=== PATIENT | female | born 1960 | race Two or more races ===

== ENCOUNTER 2021-06-29 21:31 | Inpatient (IN) | payer OTHER ==
[~2021-06-29] VITALS: Ht 160 cm; Wt 57.0 kg
[2021-06-29] MEDS: IPRATROPIUM 0.5MG/ALBUTEROL 2.5MG INH SOL UD 3ML (DUONEB) NEB PRN ×2 (21:55→21:56)
[2021-06-29 22:02] LABS: ABG BASE EXCESS -4.9 (-2.0-2.0); ABG HCO3 18.7 MEQ/L (22.0-26.0); ABG O2 SATURATION 97.2 % (95.0-99.0); ABG PARTIAL PRESSURE CO2 29.4 mmHg (35.0-45.0); ABG PARTIAL PRESSURE O2 99.8 mmHg (75.0-100.0); ABG STANDARD HCO3 20.4 MEQ/L (22.0-26.0); ABG TOTAL CO2 19.6 MEQ/L (23.0-31.0); ABG pH (ARTERIAL) 7.422 UNITS (7.350-7.450)
[2021-06-29 22:07] LABS: BASO # 0.2 10^3/uL (0.0-0.2); BASO % 0.6 % (0.0-1.0); EOS # 0.3 10^3/uL (0.0-0.5); EOS % 0.9 % (0.0-3.0); HEMATOCRIT 30.8 % (36.0-47.0); HEMOGLOBIN 9.1 g/dl (12.0-15.5); LYMPH # 3.3 10^3/uL (1.5-5.0); LYMPH % 11.8 % (24.0-44.0); MEAN CORPUSCULAR HEMOGLOBIN 23.2 pg (27.0-33.0); MEAN CORPUSCULAR HGB CONC 29.5 g/dl (32.0-36.5); MEAN CORPUSCULAR VOLUME 78.6 fl (80.0-96.0); MONO # 1.4 10^3/uL (0.0-0.8); MONO % 5.2 % (2.0-8.0); NEUTROPHILS # 21.9 10^3/uL (1.5-8.5); NEUTROPHILS % 79.1 % (36.0-66.0); PLATELET COUNT, AUTOMATED 663 10^3/uL (150-450); RED BLOOD COUNT 3.92 10^6/uL (4.00-5.40); WHITE BLOOD COUNT 27.7 10^3/uL (4.0-10.0)
[2021-06-29] MEDS ORDERED: PIPERACILLIN/TAZOBACTAM SOD 3.375 GM in D5W MINI-BAG PLUS 50 ML IV ONE (22:35)
[2021-06-29] MEDS ORDERED: METO75TA PO (22:35)
[2021-06-29] MEDS ORDERED: GABA-282 PO (22:35)
[2021-06-29] MEDS ORDERED: ATOR40TA75 PO (22:35)
[2021-06-29 22:43] LABS: ALBUMIN 1.8 GM/DL (3.2-5.2); ALT/SGPT 29 U/L (12-78); BILIRUBIN,DIRECT < 0.1 MG/DL (0.0-0.2); BILIRUBIN,TOTAL 0.4 MG/DL (0.2-1.0); BLOOD UREA NITROGEN 52 MG/DL (7-18); CALCIUM LEVEL 9.2 MG/DL (8.8-10.2); CARBON DIOXIDE LEVEL 20 MEQ/L (21-32); CHLORIDE LEVEL 96 MEQ/L (98-107); CK-MB VALUE MASS 1.2 NG/ML (<3.6); CPK CREATINE PHOSPHOKINASE 69 U/L (26-192); CREATININE FOR GFR 3.44 MG/DL (0.55-1.30); GLOMERULAR FILTRATION RATE 14.4 (>45); GLUCOSE, FASTING 310 MG/DL (70-100); MB/CK RELATIVE INDEX 1.74 (< OR =4); NT-PRO BNP 48489 PG/ML (<125); POTASSIUM SERUM 5.2 MEQ/L (3.5-5.1); SODIUM LEVEL 131 MEQ/L (136-145); TOTAL PROTEIN 7.6 GM/DL (6.4-8.2); TROPONIN I 0.86 NG/ML (< 0.10)
[2021-06-29] MEDS ORDERED: NS 500 ML IV ONE (22:45)
[2021-06-29 22:46] LABS: INR 1.13; PROTHROMBIN TIME 14.9 SECONDS (12.7-14.5)
[2021-06-29] MEDS ORDERED: ALLO100T PO (22:47)
[2021-06-29] MEDS ORDERED: OMEP-218 PO (22:47)
[2021-06-29] MEDS ORDERED: RETA1000 INJ (22:47)
[2021-06-29] MEDS ORDERED: NIFE1TAB50 PO (22:47)
[2021-06-29] MEDS ORDERED: LOPI600T PO (22:47)
[2021-06-29] MEDS ORDERED: MIRA3350 PO (22:47)
[2021-06-29] MEDS ORDERED: ACID1TAB PO (22:47)
[2021-06-29] MEDS ORDERED: KEPP1TAB PO (22:47)
[2021-06-29] MEDS ORDERED: GLIP5TAB8 PO (22:47)
[2021-06-29] MEDS ORDERED: BASA100I SC (22:47)
[2021-06-29] MEDS ORDERED: NIFE30TA50 PO (22:47)
[2021-06-29] MEDS ORDERED: METO50TA7 PO (22:47)
[2021-06-29] MEDS ORDERED: ASPI81TA26 PO (22:47)
[2021-06-29] MEDS ORDERED: FURO40TA2 PO (22:47)
[2021-06-29] MEDS ORDERED: CALC1CAP31 PO (22:47)
[2021-06-29] MEDS ORDERED: D31000TA2 PO (22:47)
[2021-06-29] MEDS ORDERED: MED REC COMMENT (22:49)
[2021-06-29 23:14] LABS: D-DIMER QUANT > 4000 ng/ml (<500)
[2021-06-30] VITALS (24 sets, daily range): BP systolic 89–136; BP diastolic 50–64
--- NOTE | 2021-06-30 00:43 | REPVR ---
PROCEDURE INFORMATION: Exam: XR Chest Exam date and time: 06/29/2021 9:41 PM Age: 61 years old Clinical indication: Dyspnea/cough TECHNIQUE: Imaging protocol: XR of the chest. Views: 1 view. COMPARISON: No relevant prior studies available. FINDINGS: Lungs: There is pulmonary interstitial edema. Bibasilar airspace opacities are present. Pleural spaces: There is blunting of the left costophrenic sulcus, which may indicate a left pleural effusion. No pneumothorax is identified. Heart/Mediastinum: The cardiac silhouette is enlarged. Vasculature: There are atherosclerotic calcifications of the aorta. Bones/joints: Unremarkable. IMPRESSION: 1. Cardiomegaly and pulmonary edema. 2. Bibasilar airspace opacities, which may represent atelectasis or consolidation (e.g.: aspiration or pneumonia). 3. Blunting of the left costophrenic sulcus, which may indicate a left pleural effusion. Electronically signed by: Jose D Ruiz On 06/30/2021 00:42:33 AM
[2021-06-30 00:44] LABS: CK-MB VALUE MASS 2.3 NG/ML (<3.6); MB/CK RELATIVE INDEX 4.04 (< OR =4); TROPONIN I 1.82 NG/ML (< 0.10)
[2021-06-30] MEDS ORDERED: CLOPIDOGREL 300 MG TAB (PLAVIX) PO ONE (01:10)
[2021-06-30] MEDS ORDERED: HEPARIN DRIP 25,000 UNITS in IV 1 EA IV SCH (01:10)
[2021-06-30] MEDS ORDERED: HEPARIN SOD (PORCINE) 5000UNITS/ML 1ML VIAL/SYRINGE IV ONE (01:10)
[2021-06-30] MEDS ORDERED: ASPIRIN 81 MG CHEW TABLET PO ONE ×2 (01:10→05:50)
[2021-06-30] MEDS ORDERED: MAALOX 30 ML SUSP *UDC PO PRN (05:50)
[2021-06-30] MEDS ORDERED: NITROGLYCERIN 0.4 MG SUBL TABLET SL PRN (05:50)
[2021-06-30] MEDS ORDERED: MOM 30ML SUSPENSION UDC PO PRN (05:50)
--- NOTE | 2021-06-30 06:06 | HPEPDOC ---
[facility] Medical History & Physical Date of Admission Jun 30, 2021 Date of Service: Jun 30, 2021 Attending Physician: YAMILETH BERRY MD History and Physical TIME OF SERVICE: 625AM CHIEF COMPLAINT: not feeling well HISTORY OF PRESENT ILLNESS: is a 61 yr old F w reports not feeling well for a few min before EMS arrived at her house specifically she felt nauseous but denied vomiting; she has also had a runny nose, dry cough and fevers. She also denied having chest pain, abdominal pain, back pain, dyspnea, losing consciousness or missing dialysis. Per when EMS arrived at her house her O2 sats were in the 60s so the put her on a CPAP. Based on the initial work-up she was diagnosed with sepsis 2/2 PNA and NSTEM; she was started on abx for the PNA and triple therapy for NSTEMI. Despite calling 9 hospitals was unable to find a facility to accept the patient. She is on the waiting list at [facility]. discussed the case with who agreed that it is also reasonable to c/w triple therapy and refer her to an stitch marker on an outpatient basis for elective cath. REVIEW OF SYSTEMS: 10-point review of systems negative except as listed in HPI PAST MEDICAL/ SURGICAL HISTORY: ESRD via perma cath MWF, IDDM, Resistant HTN, CVA x2, PVD, Right hallux amputation (done in [facility] osteomyelitis ?), Hysterectomy FAMILY HISTORY: mother had CKD SOCIAL HISTORY: She move to the with her from [facility] 6 months ago, they live with her , she doesnt smoke ALLERGIES: Please see below. HOME MEDICATIONS: Please see below. PHYSICAL EXAMINATION: Vital Signs Date Time Temp Pulse Resp B/P (MAP) Pulse Ox O2 Delivery O2 Flow Rate FiO2 06/29/21 21:53 135/63 (87) 06/29/21 21:56 50 06/29/21 22:01 115 28 100 NIPPV (BIPAP/CPAP) 06/29/21 22:28 97.8 06/29/21 23:43 15.0 GENERAL APPEARANCE: slim build and developed/ NAD HEENT: EOMI / MMM&P CARDIOVASCULAR: RRR/NMRG / perma Cath at right upper chest LUNGS: CTAB on RA ABDOMEN: contour convex / soft & NT w palpation MUSCULOSKELETAL: NCAT / RAMILA x 4 extremities / right foot wrapped in dressings INTEGUMENT: not flushed or diaphoretic NEUROLOGICAL: CN 2-12 grossly intact / speech not dysarthric PSYCHIATRIC: A&O x 3 / able to understand and follow all commands LABORATORY DATA: IMAGING: Chest xray IMPRESSION: 1. Cardiomegaly and pulmonary edema. 2. Bibasilar airspace opacities, which may represent atelectasis or consolidation (e.g.: aspiration or pneumonia). 3. Blunting of the left costophrenic sulcus, which may indicate a left pleural effusion. MICROBIOLOGY: Respiratory panel neg ASSESSMENT: is a 61 yr old w a hx of ESRD, IDDM, Essential HTN, CVA x2, PVD, & recent Right hallux amputation who is admitted for sepsis, CAP and NSTEMI. PLAN: 1 Sepsis Likely 2/2 PNA but need to r/o osteomyelitis She has the following SIRS criterial SIRS criteria: HR >90 / WBC >12 / RR > 20 and lactic acidosis Plan: admit to ICU / telemetry / repeat lactic acid / Zosyn and vancomycin pending MRSA / no IVF bc she has ESRD /f/u pancx / Acetaminophen PRN for fever / target MAP at of least 65 to 70 / f/u Is and Os with target UOP of at least 0.5 ml/kg/H / f/u FSBS w target serum glucose 140-180 while acutely ill 2 Hypoxemia likely 2/2 PNA She has been weaned off CPAP to non-rebreather Plan: continuous pulse ox & supplemental O2/ f/u pancx results / Zosyn and Vancomycin / Acetaminophen PRN for fever 3 NSTEMI Plan: telemetry / c/w triple therapy (heparin drip, ASA and Plavix) / f/u serial EKGs & troponins, BNP, Echo, lipid panel / high intensity statin & gemfibrozil / c/w metoprolol /f/u w 4 Recent Right hallux amputation Plan: f/u foot xray, ESR and CRP & consider Podiatry consult 5 ESRD via perma cath MWF Plan: will ask the day time team to consult Nephro / renal diet / c/w Calcitriol / vitamin D 6 Microcytic Anemia Plan: f/u Iron studies and stool occult / she is on EPO monthly 7 IDDM Plan: diabetic diet /hypoglycemia protocol / sliding scale insulin / reduce long acting insulin from 20 units BID to 15 units BID pending FSBS / f/u A1C / hold oral anti-glycemics / gabapentin for neuropathy ? 8 Resistant HTN ? Plan: Lasix, metoprolol & nifedipine 9 CVA x2 /PVD Plan: ASA & statin 10 Seizure disorder ? Plan: Keppra / f/u Keppra levels 11 Gout ? Plan: allopurinol DVT n/a she is on a heparin drip Dispo: home after at least 2 midnights stay Home Medications Scheduled Allopurinol (Allopurinol) 100 Mg Tablet, 100 MG PO DAILY Aspirin (Aspirin EC) 81 Mg Tablet.dr, 81 MG PO DAILY Calcitriol (Calcitriol) 0.25 Mcg Capsule, 0.25 MCG PO 2XW MON AND FRI Cephalexin (Cephalexin) 500 Mg Capsule, 500 MG PO BID Cholecalciferol (Vitamin D3) (Vitamin D3) 1,000 Unit Tablet, 1,000 UNITS PO DAILY Epoetin Roosevelt-Epbx (Retacrit) 10,000 Unit/1 Ml Vial, 10,000 UNIT INJ ASDIRECTED Furosemide (Furosemide) 40 Mg Tablet, 80 MG PO DAILY Gabapentin (Gabapentin) 300 Mg Capsule, 300 MG PO QHS Glipizide (Glipizide) 5 Mg Tablet, 5 MG PO BID Insulin Glargine,Hum.rec.anlog (Basaglar Kwikpen U-100) 100 Unit/1 Ml Insuln.pen, 20 UNIT SC BID Lactobacillus Acidophilus (Acidophilus) 1 Each Tablet, 1 TAB PO DAILY Levetiracetam (Keppra) 500 Mg Tablet, 500 MG PO BID Metoprolol Tartrate (Metoprolol Tartrate) 75 Mg Tablet, 75 MG PO BID Nifedipine (Nifedipine ER) 90 Mg Tab.er.24, 90 MG PO QAM Omeprazole (Omeprazole) 20 Mg Capsule.dr, 20 MG PO DAILY Polyethylene Glycol 3350 (Miralax) 119 Gm Powder, 17 GM PO DAILY dilute in 8 ounces of water or juice Simvastatin (Simvastatin) 20 Mg Tablet, 20 MG PO QPM Miscellaneous Medications [Med Rec Comment] RECIEVED COPY OF OFFICE VISIT WITH LIST FROM 06/27/21. NOT SURE HOW ACCURATE LIST IS. REVIEWED WITH EXTERNAL MED HISTORY Allergies Coded Allergies: No Known Allergies (Unverified , 06/29/21) A-FIB/CHADSVASC A-FIB History Current/History of A-Fib/PAF?: No Current PO Anticoag Therapy: No YAMILETH BERRY MD Jun 30, 2021 06:06
[2021-06-30] MEDS ORDERED: CEPH500C PO (07:17)
[2021-06-30] MEDS ORDERED: SIMV20TA22 PO (07:17)
[2021-06-30] MEDS ORDERED: GLUCOSE 4GM CHEW TABLET PO PRN (07:30)
[2021-06-30] MEDS ORDERED: GLUCAGON INJ 1MG VIAL SC PRN (07:30)
[2021-06-30] MEDS ORDERED: DEXTROSE 50% 50 ML SYRINGE IV PRN (07:30)
[2021-06-30] MEDS ORDERED: HOME MED LIST COMPLETE! XX SCH (07:35)
[2021-06-30] MEDS ORDERED: VANCOMYCIN HCL 500 MG in D5W MINI-BAG PLUS 100 ML IV SCH (07:35)
[2021-06-30 08:05] LABS: HEMATOCRIT 28.7 % (36.0-47.0); HEMOGLOBIN 8.6 g/dl (12.0-15.5); MEAN CORPUSCULAR HEMOGLOBIN 23.2 pg (27.0-33.0); MEAN CORPUSCULAR VOLUME 77.4 fl (80.0-96.0); RED BLOOD COUNT 3.71 10^6/uL (4.00-5.40); WHITE BLOOD COUNT 24.2 10^3/uL (4.0-10.0)
[2021-06-30 08:16] LABS: HEMOGLOBIN A1c 8.1 %
--- NOTE | 2021-06-30 08:19 | REP ---
INDICATION: suspect osteomyelitis COMPARISON: None. TECHNIQUE: AP, lateral, bilateral oblique views right foot. FINDINGS: Evidence for amputation involving the 1st and 5th metatarsal bones. Erosive changes are noted at the base of the 5th metatarsal bone and head of the 4th metatarsal. Remainder of the osseous structures demonstrate advanced degenerative changes. Soft tissue swelling noted. IMPRESSION: Underlying osteomyelitis cannot be excluded and are suspect. <Electronically signed by Sancho Rodriguez > 06/30/21 [id number]
[2021-06-30 08:50] LABS: ERYTHROCYTE SEDIMENTATION RATE 126 mm/hr (0-30); PLATELET COUNT, AUTOMATED 529 10^3/uL (150-450)
[2021-06-30] MEDS ORDERED: LEVEMIR (INSULIN DETEMIR) 1 UNITS/0.01ML SC SCH (09:00)
[2021-06-30] MEDS ORDERED: NIFEdipine 30 MG XL TAB PO SCH (09:00)
[2021-06-30] MEDS ORDERED: VANCOMYCIN HCL 1,000 MG, VIAL MATE ADAPTER 1 EACH in NS 250 ML IV ONE (09:00)
[2021-06-30] MEDS ORDERED: VANCOMYCIN INTERMITTENT/PULSE DOSING BY CLINICAL PHARMACIST PER DOSING PROTOCOL XX SCH (09:00)
[2021-06-30] MEDS ORDERED: FUROSEMIDE 40 MG TAB PO SCH (09:00)
[2021-06-30] MEDS ORDERED: METOPROLOL TART 25 MG TABLET PO SCH (09:00)
[2021-06-30] MEDS: HumaLOG INSULIN (NovoLOG) PER UNIT SC SCH ×2 (10:02→12:00)
--- NOTE | 2021-06-30 10:26 | REP ---
INDICATION: line placement COMPARISON: 06/29/2021 TECHNIQUE: Portable AP view of the chest FINDINGS: Left IJ line extends into the right brachiocephalic vein. Double-lumen dialysis catheter extends into the right atrium and appears stable. Stable cardiomegaly. Perihilar and lower lobe opacities suggesting scattered airspace disease and consolidations as well as possible layering left effusion. No pneumothorax. IMPRESSION: 1. New left IJ line extends past the SVC into the right brachiocephalic vein. 2. Perihilar and lower lobe opacities/consolidations (left greater than right) and possible left effusion. <Electronically signed by Sancho Rodriguez > 06/30/21 1021
[2021-06-30 11:11] LABS: C REACTIVE PROTEIN QUANTITATIV 18.9 MG/DL (0.00-0.30); PERCENT SATURATION 28.2 % (13.2-45.0); PHOSPHORUS LEVEL 6.8 MG/DL (2.5-4.9); TROPONIN I 3.04 NG/ML (< 0.10)
[2021-06-30] MEDS ORDERED: NOREPINEPHRINE BITARTRATE 8 MG in D5W 500 ML IV SCH ×3 (12:10→12:25)
[2021-06-30] MEDS: ATORVASTATIN 20 MG TAB PO SCH (12:11)
[2021-06-30] MEDS: PIPERACILLIN/TAZOBACTAM SOD 2.25 GM in D5W MINI-BAG PLUS 50 ML IV SCH ×3 (12:11→20:40)
[2021-06-30] MEDS: CLOPIDOGREL 75 MG TAB PO SCH (12:11)
[2021-06-30] MEDS: levETIRAcetam 250MG TABLET (KEPPRA) PO SCH ×2 (12:11→20:41)
[2021-06-30] MEDS: allopurinoL 100 MG TAB PO SCH (12:12)
[2021-06-30] MEDS: ASPIRIN 81 MG CHEW TABLET PO SCH (12:12)
[2021-06-30] MEDS: VITAMIN D 1,000 INTERNATIONAL UNITS TABLET PO SCH (12:12)
--- NOTE | 2021-06-30 12:33 | ROOPDOC ---
[facility] Report Of Operation Report of Operation DATE OF PROCEDURE: 06/30/21 PROCEDURE PERFORMED: Left internal jugular central venous catheter insertion. PREPROCEDURE DIAGNOSES: NSTEMI, cardiogenic shock. POSTPROCEDURE DIAGNOSES: NSTEMI, cardiogenic shock. PROCEDURE PERFORMED: Left internal jugular central venous catheter insertion. SURGEON: Dr. Link MD ANESTHESIA: Local lidocaine 1% without epinephrine. ESTIMATED BLOOD LOSS: Approximately 1 mL. COMPLICATIONS: None. DESCRIPTION OF PROCEDURE: After procedure consent was obtained from patient with risk and benefit ex plained,a time out was performed. My hands were washed immediately prior to the procedure. I wore a surgical cap, mask with protective eyewear, full gown and sterile gloves throughout the procedure. The patient was placed in Trendelenburg position. Left chest and neck region was prepped using chlorhexidine scrub and draped in sterile fashion using a full drape and sterile probe cover and sterile gel employed. The medial and lateral heads of the sternocleidomastoid muscle were identified as was the carotid pulse. The Internal Jugular vein was identified using the ultrasound. Anesthesia was achieved over the vein using 1% lidocaine. Using real-time out of plane guidance, the introducer needle was inserted into the Internal Jugular vein under direct ultrasound visualization. Venous blood was withdrawn. The syringe was removed and a guidewire was advanced into the introducer needle. The guidewire was visualized in the Internal Jugular Vein by ultrasound. A small incision was made at the skin surface with a scalpel and the introducer needle was exchanged for a dilator over the guidewire. After appropriate dilation was obtained, the dilator was exchanged over the wire for a triple lumen central venous catheter. The wire was removed and the catheter was sutured in place at 18 cm. A sterile sorbaview shield was placed over the catheter at the insertion site. The patient tolerated the procedure without any hemodynamic compromise. At time of procedure completion, all ports aspirated and flushed properly. Post-procedure chest x-ray show catheter transverse into the right brachiocephalic region. However, given the presence of permanent tunneled dialysis catheter in the right subclavian going into the SVC, decision was made to leave the central line alone without repositioning. Estimated blood loss is 1 cc. KATHERINE PRATT MD Jun 30, 2021 12:33
[2021-06-30 12:48] LABS: VENOUS BASE EXCESS -7.9 (-2.0-2.0); VENOUS HCO3 17.6 MEQ/L (23.0-27.0); VENOUS O2 SATURATION 83.7 % (60.0-80.0); VENOUS PARTIAL PRESSURE CO2 35.4 mmHg (38.0-50.0); VENOUS PARTIAL PRESSURE O2 56.4 mmHg (30.0-50.0); VENOUS PH 7.314 UNITS (7.330-7.430); VENOUS STANDARD HCO3 17.8 MEQ/L; VENOUS TOTAL CO2 18.7 MEQ/L (24.0-28.0)
--- NOTE | 2021-06-30 13:36 | CR.PDOC ---
General Date of Consultation: Jun 30, 2021 Referring Provider: YMAILETH BERRY MD Attending Physician: Hanna Ramirez MD Consultation REASON FOR CONSULTATION/CHIEF COMPLAINT: Hypoxic respiratory failure, cardiogenic and septic shock. HISTORY OF PRESENT ILLNESS: This is a 61-year-old female with past medical history of end-stage renal disease on hemodialysis Thursday via right subclavian tunneled dialysis catheter, insulin-dependent diabetes, hypertension, history of stroke with left residual weakness, peripheral vascular disease, right hallux amputation, hysterectomy presented to the hospital last night due to not feeling well. Patient is not a good historian. Last night she called EMS due to complaining of not feeling well. She was having difficulty breathing as well as having a runny nose dry cough and fevers. Upon arrival the emergency ambulance, she was found to be profoundly hypoxic with oxygen saturation in the 60s. She was immediately put on CPAP upon arrival to the emergency department. She denies of orthopnea, lower extremity swelling, hemoptysis, weight loss, night sweats. Upon admission to the hospital patient was found to have significantly elevated troponin. Imaging revealed large left lower lobe consolidation in the posterior aspects. Patient was admitted to the hospital for healthcare associate pneumonia as well as NSTEMI. She was started on NSTEMI protocol with dual antiplatelet as well as heparin drip. She is currently in the ICU with Vapotherm. She is pending transfer to a tertiary care center for elective cardiac catheterization. ICU was consulted for further management. PAST MEDICAL/ SURGICAL HISTORY: ESRD via perma cath MWF IDDM Resistant HTN CVA x2 PVD Right hallux amputation (done in [facility] osteomyelitis ?) Hysterectomy FAMILY HISTORY: mother had CKD SOCIAL HISTORY: She move to the [place] with her from [facility] 6 months ago, they live with her , she doesnt smoke ALLERGIES: Please see below. HOME MEDICATIONS: Please see below. REVIEW OF SYSTEMS: CONSTITUTIONAL: Experiences fever, chills, fatigue. Denies malaise, weight change or appetite change. HEENT: Denies sore throat. CARDIOVASCULAR: Denies chest pain, orthopnea, PND, lower extremity swelling. RESPIRATORY: Admits to shortness of breath and dry cough. Denies hemoptysis or wheezing. GENITOURINARY: Denies dysuria. MUSCULOSKELETAL: Denies myalgia or arthralgia. GASTROINTESTINAL: Denies nausea, vomiting, abdominal pain, blood in stool. SKIN: Denies rash. NEUROLOGICAL: Admits to heavy left sided focal weakness which is old. PSYCHIATRIC: Denies depression. ENDOCRINE: Denies weight change. HEMATOLOGIC/LYMPHATIC: Denies bleeding. ALLERGIC/IMMUNOLOGIC: Denies allergy. PHYSICAL EXAMINATION: VITAL SIGNS: Please see below. GENERAL APPEARANCE: Patient is chronically ill-appearing but does not appear to be any distress. HEENT: No JVD or cervical adenopathy. RESPIRATORY: Diminished breath sounds bilaterally with Rales in the left lower lung field posteriorly. CARDIOVASCULAR: Normal S1-S2 with evidence of midsystolic murmur. ABDOMEN: Soft nontender and hypoactive bowel sounds. EXTREMITIES: No evidence of pedal edema. NEUROLOGICAL: Left-sided focal weakness likely from previous stroke. PSYCHIATRIC: Alert and oriented x2. LABORATORY DATA: Please see below. ASSESSMENT/PLAN: This is a 61-year-old female with past medical history of end-stage renal disease on hemodialysis Thursday via right tunneled dialysis cath eter, insulin-dependent diabetes, hypertension, history of stroke with left residual weakness, peripheral vascular disease, right hallux amputation, hysterectomy presented to the hospital last night due to not feeling well. 1. Hypoxic respiratory failure secondary to HAP and cardiogenic pulmonary edema -We will switch patient from on the percent nonrebreather to Vapotherm. 2. Cardiogenic pulmonary edema -Patient will receive hemodialysis per nephrology 3. NSTEMI -Patient has been loaded with aspirin and Plavix, Lipitor, heparin. Cardiology on board. She is pending transfer to tertiary care center for urgent cardiac catheterization. Her FERNANDA score is 3. -Echo with ejection fraction of 45% and left lateral wall motion hypokinesis. 4. Septic versus cardiogenic shock -We will start patient on Levophed. She is also on empiric antibiotic for HAP. Cultures has been sent. 5. ESRD on hemodialysis -She will receive 1 session of hemodialysis today. Nephrology on board. There is no evidence of electrolyte derangement however she does have evidence of fluid overload/pulmonary edema. DVT prophylaxis: Heparin GI prophylaxis: Not indicated Critical care time excluding procedure is 60 minutes. Vital Signs/I&O Vital Signs Date Time Temp Pulse Resp B/P (MAP) Pulse Ox O2 Delivery O2 Flow Rate FiO2 06/30/21 13:00 81 106/55 (72) 91 HVNI-Vapotherm 29.0 100 06/30/21 12:00 98.4 19 I&O- Last 24 Hours up to 6 AM 06/30/21 06:00 Intake Total 50 ml Balance 50 ml Laboratory Data Labs 24H Laboratory Tests 2 06/29/21 21:50: Immature Granulocyte % (Auto) 2.4, Neutrophils (%) (Auto) 79.1H, Lymphocytes (%) (Auto) 11.8L, Monocytes (%) (Auto) 5.2, Eosinophils (%) (Auto) 0.9, Basophils (%) (Auto) 0.6, Neutrophils # (Auto) 21.9H, Lymphocytes # (Auto) 3.3, Monocytes # (Auto) 1.4H, Eosinophils # (Auto) 0.3, Basophils # (Auto) 0.2, Nucleated Red Blood Cells % (auto) 0.0, Anion Gap 15, Glomerular Filtration Rate 14.4L, Lactic Acid Level 5.6*H, Calcium Level 9.2, Total Bilirubin 0.4, Direct Bilirubin < 0.1, Aspartate Amino Transf (AST/SGOT) 58H, Alanine Aminotransferase (ALT/SGPT) 29, Alkaline Phosphatase 125H, Total Creatine Kinase 69, Creatine Kinase MB 1.2, Creatine Kinase MB Relative Index 1.74, Troponin I 0.86H, BL-Uxt-G-Type Natriuretic Peptide 35142E, Total Protein 7.6, Albumin 1.8L, Albumin/Globulin Ratio 0.3L 06/29/21 21:54: Blood Gas Bicarbonate Standard 20.4L, Arterial Blood pH 7.422, Arterial Blood Partial Pressure CO2 29.4L, Arterial Blood Partial Pressure O2 99.8, Arterial Blood Total CO2 19.6L, Arterial Blood HCO3 18.7L, Arterial Blood Base Excess - 4.9L, Arterial Blood Oxygen Saturation 97.2 06/29/21 22:22: Prothrombin Time 14.9H, Prothromb Time International Ratio 1.13, D-Dimer, Quantitative > 4000H 06/30/21 00:00: Total Creatine Kinase 57, Creatine Kinase MB 2.3, Creatine Kinase MB Relative Index 4.04H, Troponin I 1.82#*H 06/30/21 04:50: Lactic Acid Followup at 4 Hours 1.4 06/30/21 07:36: Nucleated Red Blood Cells % (auto) 0.0, Erythrocyte Sedimentation Rate 126H, Activated Partial Thromboplast Time 76.4H, Estimated Mean Plasma Glucose 186H, Hemoglobin A1c 8.1, Phosphorus Level 6.8H, Iron Level 33L, Total Iron Binding Capacity 117L, Transferrin % Saturation 28.2, Ferritin 72519A, Troponin I 3.04#*H, C-Reactive Protein, Quantitative 18.90H 06/30/21 12:37: Activated Partial Thromboplast Time 65.4H, Blood Gas Bicarbonate Standard 17.8, Venous Blood pH 7.314L, Venous Blood Partial Pressure CO2 35.4L, Venous Blood Partial Pressure O2 56.4H, Venous Blood Total Carbon Dioxide 18.7L, Venous Blood HCO3 17.6L, Venous Blood Oxygen Saturation 83.7H, Venous Blood Base Excess -7.9L 06/30/21 12:55: CBC/BMP Laboratory Tests 06/29/21 21:50 06/30/21 07:36 Microbiology Microbiology 06/29/21 Blood Culture, Received Pending 06/29/21 Respiratory Virus Panel (PCR) ([facility]) - Final, Complete 06/29/21 Blood Culture, Received Pending Allergies Coded Allergies: No Known Allergies (Unverified , 06/29/21) Home Medications Scheduled Allopurinol (Allopurinol) 100 Mg Tablet, 100 MG PO DAILY, (Reported) Aspirin (Aspirin EC) 81 Mg Tablet.dr, 81 MG PO DAILY, (Reported) Calcitriol (Calcitriol) 0.25 Mcg Capsule, 0.25 MCG PO 2XW, (Reported) MON AND FRI Cephalexin (Cephalexin) 500 Mg Capsule, 500 MG PO BID, (Reported) Cholecalciferol (Vitamin D3) (Vitamin D3) 1,000 Unit Tablet, 1,000 UNITS PO D AILY, (Reported) Epoetin Roosevelt-Epbx (Retacrit) 10,000 Unit/1 Ml Vial, 10,000 UNIT INJ ASDIRECTED, (Reported) Furosemide (Furosemide) 40 Mg Tablet, 80 MG PO DAILY, (Reported) Gabapentin (Gabapentin) 300 Mg Capsule, 300 MG PO QHS, (Reported) Glipizide (Glipizide) 5 Mg Tablet, 5 MG PO BID, (Reported) Insulin Glargine,Hum.rec.anlog (Basaglar Kwikpen U-100) 100 Unit/1 Ml Insuln.pen, 20 UNIT SC BID, (Reported) Lactobacillus Acidophilus (Acidophilus) 1 Each Tablet, 1 TAB PO DAILY, (Reported) Levetiracetam (Keppra) 500 Mg Tablet, 500 MG PO BID, (Reported) Metoprolol Tartrate (Metoprolol Tartrate) 75 Mg Tablet, 75 MG PO BID, (Reported) Nifedipine (Nifedipine ER) 90 Mg Tab.er.24, 90 MG PO QAM, (Reported) Omeprazole (Omeprazole) 20 Mg Capsule.dr, 20 MG PO DAILY, (Reported) Polyethylene Glycol 3350 (Miralax) 119 Gm Powder, 17 GM PO DAILY, (Reported) dilute in 8 ounces of water or juice Simvastatin (Simvastatin) 20 Mg Tablet, 20 MG PO QPM, (Reported) Miscellaneous Medications [Med Rec Comment] , (Reported) RECIEVED COPY OF OFFICE VISIT WITH LIST FROM 06/27/21. NOT SURE HOW ACCURATE LIST IS. REVIEWED WITH EXTERNAL MED HISTORY KATHERINE PRATT MD Jun 30, 2021 13:31
[2021-06-30 13:40] LABS: TROPONIN I 2.34 NG/ML (< 0.10)
[2021-06-30] MEDS ORDERED: INSULIN REGULAR IN 0.9 % NACL 100 UNIT in IV 1 EA IV SCH ×2 (14:15)
[2021-06-30] MEDS ORDERED: INSULIN IV RATE CHANGE DOCUMENTATION ML/HR XX SCH (14:15)
[2021-06-30] MEDS: INSULIN REGULAR IN 0.9 % NACL 100 UNIT in IV 1 EA IV SCH ×4 (15:19→19:49)
[2021-06-30] MEDS: INSULIN IV RATE CHANGE DOCUMENTATION ML/HR XX SCH ×3 (16:13→21:54)
--- NOTE | 2021-06-30 17:13 | ECHO ---
ECHOCARDIOGRAM DATE OF PROCEDURE: 06/30/2021 Age: Gender: Female Height: 160 cm Weight: 68 kg REFERRING PHYSICIAN: Clara Morgan M.D, INDICATION: Myocardial infarction. MEASUREMENTS: IVS 1.1 cm LV 4.8 cm LVPW 1.1 cm LA 4.1 cm Aorta 3.2 cm IVC 2.1 cm Mitral E wave velocity 108 A wave 56 E prime septal 2.9 E prime lateral 5.1 Left atrial volume index 24 FINDINGS: This study is of fair technical quality with somewhat limited visualization. Patient is in sinus rhythm. Left ventricle is normal size. There is a wall motion abnormality involving mid and distal lateral and inferolateral tyler. Unfortunately, the visualization was rather limited, so the resolution was poor, but it seems relatively convincing. The remaining left ventricular (LV) segment appeared to have normal contractility, but segments of anterior wall and apex were poorly visualized. I estimate overall ejection fraction (EF) around 45-50%. Right ventricle appears normal. Both atria appear grossly normal. Aortic valve is tricuspid. It is mildly sclerotic, but mobility is preserved. There are also mild degenerative abnormalities of mitral valve with mitral annular calcifications and preserved mobility. Tricuspid valve appears normal. Pulmonic valve was not well seen. No pericardial effusion is noted. Left pleural effusion is seen. Inferior vena cava is mildly dilated and has reduced collapse with inspiration, indicative of high central venous pressure. Aortic root is normal. Aortic arch and abdominal aorta were not visualized. Doppler interrogation reveals competent aortic valve. There is at last moderate mitral insufficiency with laterally oriented mitral regurgitation (MR) jet. There is approximately mild to moderate tricuspid insufficiency. Calculated pulmonary artery pressure was in the mid to high 40s, corresponding to moderate pulmonary hypertension. Mitral inflow pattern and tissue Doppler imaging of mitral annulus reveals grade 2 diastolic dysfunction, indicative of high left ventricular end diastolic pressure. CONCLUSIONS: 1. Study is of fair technical quality. Underlying sinus rhythm. 2. Normal left ventricular (LV) size with mid and distal inferolateral and lateral wall motion abnormality and overall estimated left ventricular ejection fraction (LVEF) 45-50% (fair quality views). Grade 2 diastolic dysfunction. 3. At least moderate mitral insufficiency likely ischemic in nature. 4. Mild to moderate tricuspid insufficiency. 5. Elevated central venous pressure and at least moderate pulmonary hypertension. MTDD
--- NOTE | 2021-06-30 17:13 | CR ---
CONSULTATION DATE: 06/30/2021 REFERRING PHYSICIAN: Clara Morgan M.D. CONSULTING PHYSICIAN: Eugenio Johnson M.D. REASON FOR CONSULTATION: Non-ST elevation M.I. HISTORY OF PRESENT ILLNESS: Mrs. Hernandez is previously unknown to me. She is a 62-year-old lady who apparently immigrated to from [facility] several months ago. She carries a history of peripheral vascular disease and a history of strokes but she does not recall ever having any cardiac problems. She has end-stage renal disease and is dialysis dependent. Her last dialysis was on Thursday. She tells me that she came to the Emergency Room because she just has not felt well. It is somewhat difficult for her to characterize the degree of discomfort. She specifically denies any chest pain. On arrival of EMT she was found to be extremely hypoxic with saturation in 60's. She got non-rebreather oxygen and came to the Emergency Room with improved situation and was transiently on BIPAP. Chest x-ray revealed evidence for what appears to be diffuse bilateral infiltrates, mostly hilar and in the lower extremities and there is also left pleural effusion and cardiomegaly. Her cardiac enzymes were mildly elevated and EKG revealed diffuse ST-segment depression with the exception of leads V-1 and V-2, which were mildly elevated. I was asked to see the patient in consultation. In the interim, she underwent and echocardiogram that I interpreted myself. It was a fair quality study with challenging regionalization but revealed mildly reduced left ventricular systolic function with EF around 45-50%. There were wall motion abnormalities involving lateral and inferolateral tyler. There was approximately moderate mitral insufficiency and elevated central venous pressure and approximately moderate pulmonary hypertension. At the bedside the patient does not have any acute complaints. She denies any chest pain and she feels that her breathing has improved. She does report that she had some fever and chills at home, but she states that at her baseline she is quite active and in spite of recent amputation of the hallux of her right lower extremity, she walks frequently and without major difficulty. Based on the report of the Emergency Room physician, she is not a compliant patient and follows only with Nephrology. PAST MEDICAL HISTORY: 1. History of strokes x2. The patient believes that it was about 4 or 5 years ago. 2. Hypertension. 3. Type 2 diabetes. 4. End-stage renal disease. 5. History of peripheral vascular disease with amputation of right hallux. PAST SURGICAL HISTORY: 1. Hysterectomy. 2. Right hallux amputation. FAMILY HISTORY: The patient's family history is positive for coronary artery disease and kidney disease. SOCIAL HISTORY: The patient is , lives with her , does not smoke, does not drink significant amount of alcohol. HOME MEDICATIONS: 1. Allopurinol 100. 2. Aspirin 81. 3. Calcitriol 0.25 twice a week. 4. Vitamin D-3. 5. Cephalexin 500 twice daily. 6. Epogen. 7. Furosemide 80 mg daily. 8. Gabapentin 300 mg at bedtime. 9. Glipizide 5 mg twice daily. 10. Insulin. 11. Keppra 500 twice daily. 12. Metoprolol 75 twice daily. 13. Nifedipine Extended Release 90 mg daily. 14. Omeprazole 90 mg daily. 15. Miralax. 16. Simvastatin 20 mg at night. ALLERGIES: NO KNOWN ALLERGIES. REVIEW OF SYSTEMS: The patient's review of systems was somewhat difficult to obtain as the patient is really a circumferential historian but specifically, she denies any chest pain. She had nausea but no vomiting. She felt short of breath. No syncope, near syncope. The rest is as per HPI or negative. PHYSICAL EXAMINATION: GENERAL APPEARANCE: Mrs. Hernandez is an elderly, normal size female. She does not appear to be in any obvious distress. NECK: There is a dialysis catheter through right IJ and there is a triple lumen catheter through the left IJ. I do not appreciate carotid bruit. JVP is difficult to us administrative law judge but does not appear grossly elevated. LUNGS: Fair air movement. Diminished breath sounds over the bases. More the less, left than right. I do not appreciate any crackles or wheezing. HEART: Regular rhythm, somewhat muffled heart sounds. I do not appreciate murmur, rub or mitral insufficiency. No obvious gallop. ABDOMEN: Soft, nontender. EXTREMITIES: Free of edema. There is a palpable pulse on her left lower extremity. I have a hard time feeling a pulse on the right lower extremity. The right foot is bandaged. NEUROLOGICAL: She appears intact. I do not appreciate any focal weakness. She is alert and oriented. LABORATORY STUDIES: As of 7:36 this morning WBC count 24,000, hemoglobin 8.6, hematocrit 28, platelet count 29,000 and sedimentation rate 126,000. Last BMP was performed last night around 21:50 and it was: Sodium 131, potassium 5.2, BUN 52, creatinine 3.4 and glucose 310. Liver function tests were mildly elevated. Troponin on admission was 0.86 and has been rising since; the next one around midnight was 1.82 and the third one at 7:36 this morning was 3.0. CK has remained normal. IMAGING DATA: Chest x-ray as per HPI. The patient has already four EKGs that are all principally the same and reveal sinus rhythm with minimal ST elevations in leads V-1 and V-[address] segment depression in all remaining leads. There has not been any obvious evolution over the course of her four EKGs. If anything, there has been subtle improvement. ASSESSMENT AND PLAN: Mrs. Hernandez is a 62-year-old female who has multiple risk factors for CAD that include the presence of end-stage renal disease, hypertension, dyslipidemia and type 2 diabetes, who presents with rather vague symptoms, predominately which are probably fatigue and dyspnea, and is found to have non-ST elevation myocardial infarction with troponin still trending up in the absence of arlene anginal symptoms. There is a wall motion abnormality on the echocardiogram involving lateral and inferolateral tyler with overall EF of about 45% and approximately moderate mitral insufficiency which I believe is most likely ischemic in nature. She already received full dose of Plavix and Aspirin and she is fully anticoagulated. Her blood pressure is low, currently in the 90's systolic and consequently, no other medications with cardiac protective effect like beta blockers or levi inhibitors can be entertained. She did receive high dose statin already. The attempts were made from the Emergency Room to transfer the patient to a facility with cardiac catheterization capability unsuccessfully and eventually the decision was made to keep the patient in our facility. I do not believe that she would be taken to the label cutter anyhow because she has underlying infectious process, whether it is pneumonia or it is possibly alternate surce sepsis, is at this point unclear. Broad spectrum antibiotics were already administered. Pressor support will be started as necessary for blood pressure support. Dialysis is about to start. At this point I do not have much else to offer to her management. PROGNOSIS: Her prognosis is certainly guarded at best on account of numerous comorbidities, but I do believe that the overall picture is probably that of infection with secondary myocardial injury. DISPOSITION: Again, if a bed at a tertiary facility becomes available, I do recommend to transfer the patient. Otherwise we will continue the current supportive management. MTDD
--- NOTE | 2021-06-30 17:44 | IPNPDOC ---
Date Seen The patient was seen on 06/30/21. Progress Note SUBJECTIVE: I attempted to transfer to [facility], [facility] and later [facility]. The patient was accepted by Dr. Maciel at [facility]; however, there currently aren't any ICU beds available. He says the patient will have a better chance getting a bed on their stepdown unit; however, FiO2 would have to be at least 40%. The patient remains on 100% FiO2 but is slowly beginning to be weaned down. The patient had hypotension (MAP 65-67) and, after discussion with cardiology (Dr. Johnson) reviewing her echocardiogram, this was decided likely septic shock vs cardiogenic shock. Nephrology (Dr. Pedro) was consulted and dialysis occurred this afternoon, taking 2 L of fluid off. The patient did not need to start levophed and remains not needing it currently. Pulmonary is consulted and placed central line in the left IJ earlier this morning. Patient had a blood sugar over 700 and was started on insulin drip in the afternoon as well. She denies any increased shortness of breath, chest pain, nausea, vomiting, diarrhea, fevers or chills. OBJECTIVE: PHYSICAL EXAMINATION: Vital Signs: Please see below GENERAL APPEARANCE: slim build and developed/ NAD HEENT: EOMI / MMM&P/ left IJ secured CARDIOVASCULAR: RRR/NMRG / perma Cath at right upper chest LUNGS: CTAB on RA ABDOMEN: contour convex / soft & NT w palpation MUSCULOSKELETAL: NCAT / RAMILA x 4 extremities / right foot wrapped in dressings INTEGUMENT: right foot has 2 pressure ulcers, covered in Hydrafera blue, nonsuppurative, appear clean and well kept NEUROLOGICAL: CN 2-12 grossly intact / speech not dysarthric PSYCHIATRIC: A&O x 3 / able to understand and follow all commands LABORATORY DATA: Please see below IMAGING: Chest xray IMPRESSION: 1. Cardiomegaly and pulmonary edema. 2. Bibasilar airspace opacities, which may represent atelectasis or consolidation (e.g.: aspiration or pneumonia). 3. Blunting of the left costophrenic sulcus, which may indicate a left pleural effusion. MICROBIOLOGY: Respiratory panel neg BCx pending x 2 sets ASSESSMENT: is a 61 yr old w a hx of ESRD, IDDM, Essential HTN, CVA x2, PVD, & recent Right hallux amputation who is admitted for sepsis, HCAP and NSTEMI. PLAN: Acute hypoxic respiratory failure likely multifactorial secondary to HCAP, pulmonary edema from NSTEMI, CHF -Currently on Vapotherm flow rate 20, FiO2 100, saturating at 93% -Status post hemodialysis with 2 L of fluid removal -Goal is 40% FiO2 for transfer to [facility] per Dr. Maciel, pulmonary crit [facility] seed cleaning manager. -See individual treatment of problems below Sepsis/septic shock likely 2/2 to Healthcare associated pneumonia, r/o osteomyelitis RLE -Imaging above -LA now wnl -Zosyn, vancomycin IV renally adjusted, tylenol PRN -XR right foot: Underlying osteomyelitis cannot be excluded and are suspect. -Follow-up blood cultures, sputum culture if able to be given, daily CBC and CMP, monitor CVP, levophed PRN to keep an MAP > 65- careful not to fluid overload in the presence of end-stage renal disease/ hemodialysis. -When more stable, consider MRI RLE -Consider ID consult in the AM NSTEMI -Trop peaked 3.04, trending down currently -Denies chest pain -ECG in chart -Echocardiogram preliminary reading discussed with Dr. Johnson. Ejection fraction 4045 percent, lateral wall motion abnormalities, moderate mitral insufficiency. Follow up official reading -Monitor on telemetry, c/w triple therapy (heparin drip, ASA and Plavix), f/u serial troponins, high intensity statin,gemfibrozil. No BB with hypotension -Cardiology consulted and following closely Hyperglycemia likely secondary to sepsis/stress -Blood sugar over 700, not suspecting DKA or HHS -Insulin drip, consistent carbohydrate diet. When to blood sugars less than 200 consider stopping insulin drip and transitioning to insulin sliding scale and insulin glargine. HFpEF with exacerbation likely worsened by acute cardiac consult in combination with end-stage renal disease -X-ray shows pulmonary edema and pleural effusion -Status post 2 L fluid removal -Hemodialysis and fluids managed by nephrology -Holding beta clarence, Lasix -Follow-up official echocardiogram -Cards on board Recent Right hallux amputation -Supervisor Data Processing Dr. Ewing -Appears clean and well cared for -Get imaging for osteomyelitis as discussed above and can involve podiatry after if needed ESRD on HD MWF -S/p 2 L removal today -Nephrology following Microcytic Anemia likely multifactorial with ESRD and iron deficiency anemia -F/u Iron studies -Nephrology helping manage REsistent hypotension -Currently hypotensive -Hold all meds from home CVA x2 /PVD -No new neuro changes -ASA & statin Seizure disorder ? -Keppra Gout hx -allopurinol GI px -PPI DVT Px -Heparin gtt DISPOSITION: We will try again in the morning to attempt to transfer again. Currently the patient has an accepting physician Dr. Maciel at [facility] ([phone]) and is on a list for a bed. The patient remains a full code. VS, I&O, 24H, Fishbone Vital Signs/I&O Vital Signs Date Time Temp Pulse Resp B/P (MAP) Pulse Ox O2 Delivery O2 Flow Rate FiO2 06/30/21 16:00 97.8 87 17 112/60 (77) 94 HVNI-Vapotherm 20.0 06/30/21 13:00 100 I&O- Last 24 Hours up to 6 AM 06/30/21 06:00 Intake Total 50 ml Balance 50 ml Laboratory Data 24H LABS Laboratory Tests 2 06/29/21 21:50: Immature Granulocyte % (Auto) 2.4, Neutrophils (%) (Auto) 79.1H, Lymphocytes (%) (Auto) 11.8L, Monocytes (%) (Auto) 5.2, Eosinophils (%) (Auto) 0.9, Basophils (%) (Auto) 0.6, Neutrophils # (Auto) 21.9H, Lymphocytes # (Auto) 3.3, Monocytes # (Auto) 1.4H, Eosinophils # (Auto) 0.3, Basophils # (Auto) 0.2, Nucleated Red Blood Cells % (auto) 0.0, Anion Gap 15, Glomerular Filtration Rate 14.4L, Lactic Acid Level 5.6*H, Calcium Level 9.2, Total Bilirubin 0.4, Direct Bilirubin < 0.1, Aspartate Amino Transf (AST/SGOT) 58H, Alanine Aminotransferase (ALT/SGPT) 29, Alkaline Phosphatase 125H, Total Creatine Kinase 69, Creatine Kinase MB 1.2, Creatine Kinase MB Relative Index 1.74, Troponin I 0.86H, AH-Ime-L-Type Natriuretic Peptide 96305P, Total Protein 7.6, Albumin 1.8L, Albumin/Globulin Ratio 0.3L 06/29/21 21:54: Blood Gas Bicarbonate Standard 20.4L, Arterial Blood pH 7.422, Arterial Blood Partial Pressure CO2 29.4L, Arterial Blood Partial Pressure O2 99.8, Arterial Blood Total CO2 19.6L, Arterial Blood HCO3 18.7L, Arterial Blood Base Excess - 4.9L, Arterial Blood Oxygen Saturation 97.2 06/29/21 22:22: Prothrombin Time 14.9H, Prothromb Time International Ratio 1.13, D-Dimer, Q uantitative > 4000H 06/30/21 00:00: Total Creatine Kinase 57, Creatine Kinase MB 2.3, Creatine Kinase MB Relative Index 4.04H, Troponin I 1.82#*H 06/30/21 04:50: Lactic Acid Followup at 4 Hours 1.4 06/30/21 07:36: Nucleated Red Blood Cells % (auto) 0.0, Erythrocyte Sedimentation Rate 126H, Activated Partial Thromboplast Time 76.4H, Estimated Mean Plasma Glucose 186H, Hemoglobin A1c 8.1, Phosphorus Level 6.8H, Iron Level 33L, Total Iron Binding Capacity 117L, Transferrin % Saturation 28.2, Ferritin 80929L, Troponin I 3.04#*H, C-Reactive Protein, Quantitative 18.90H 06/30/21 12:37: Activated Partial Thromboplast Time 65.4H, Blood Gas Bicarbonate Standard 17.8, Venous Blood pH 7.314L, Venous Blood Partial Pressure CO2 35.4L, Venous Blood Partial Pressure O2 56.4H, Venous Blood Total Carbon Dioxide 18.7L, Venous Blood HCO3 17.6L, Venous Blood Oxygen Saturation 83.7H, Venous Blood Base Excess -7.9L 06/30/21 12:55: Troponin I 2.34#*H, Bedside Glucose Confirm (Misc) 783*H CBC/BMP Laboratory Tests 06/29/21 21:50 06/30/21 07:36 Microbiology Microbiology 06/29/21 Blood Culture, Received Pending 06/29/21 Respiratory Virus Panel (PCR) ([facility]) - Final, Complete 06/29/21 Blood Culture, Received Pending Hanna Ramirez MD Jun 30, 2021 17:44
--- NOTE | 2021-06-30 19:13 | ECGEPIP ---
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
--- NOTE | 2021-06-30 19:14 | ECGEPIP ---
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
[2021-06-30] MEDS: GABAPENTIN 300 MG CAP PO SCH (20:41)
[2021-06-30] MEDS: ACETAMINOPHEN TAB 650MG DOSE (2X325MG) PO PRN (20:58)
[2021-06-30] MEDS ORDERED: SIMVASTATIN 20 MG TAB PO SCH (21:00)
[2021-06-30] MEDS ORDERED: HumaLOG INSULIN (NovoLOG) PER UNIT SC SCH (21:00)
[2021-07-01] VITALS (25 sets, daily range): BP systolic 116–159; BP diastolic 56–99; O2SAT 97–100
--- NOTE | 2021-07-01 00:55 | CR.PDOC ---
General Date of Consultation: Jun 30, 2021 Referring Provider: YAMILETH BERRY MD Attending Physician: ARTURO ENAMORADO MD Consultation REASON FOR CONSULTATION/CHIEF COMPLAINT: [SOB]. HISTORY OF PRESENT ILLNESS: is a 61 yr old F w reports not feeling well for a few min before EMS arrived at her house specifically she felt nauseous but denied vomiting; she has also had a runny nose, dry cough and fevers. She also denied having chest pain, abdominal pain, back pain, dyspnea, losing consciousness or missing dialysis. Per when EMS arrived at her house her O2 sats were in the 60s so the put her on a CPAP. Based on the initial work-up she was diagnosed with sepsis 2/2 PNA and NSTEM; she was started on abx for the PNA and triple therapy for NSTEMI. Despite calling 9 hospitals was unable to find a facility to accept the patient. She is on the waiting list at [facility]. discussed the case with who agreed that it is also reasonable to c/w triple therapy and refer her to an supervisor curing room on an outpatient basis for elective cath. She was fluid overloaded on Imaging and she was requiring O2 via vapotherm so Nephrolog service was called for further help in management of ESRD and fluid overload. I saw and evaluated the pt at bedside. I arranged her bedside HD to be done in ICU. Last HD done on Thursday removed 1.2L fluid. REVIEW OF SYSTEMS: 10-point review of systems negative except as listed in HPI PAST MEDICAL/ SURGICAL HISTORY: ESRD via perma cath MWF IDDM Resistant HTN CVA x2 PVD Right hallux amputation (done in [facility] osteomyelitis ?) Hysterectomy FAMILY HISTORY: mother had CKD SOCIAL HISTORY: She move to the with her from [facility] 6 months ago, they live with her , she doesnt smoke ALLERGIES: Please see below. HOME MEDICATIONS: Please see below. HOME MEDICATIONS: Please see below. FAMILY HISTORY: No ESRD. PHYSICAL EXAMINATION: VITAL SIGNS: Please see below. GENERAL APPEARANCE: [AAOx3]. HEENT: EOMI,PERRLA. RESPIRATORY: Decreased BS bilat, Crepts at bases. CARDIOVASCULAR: S1,S2,1+ edema in legs. ABDOMEN: Soft,non tender, +BS. EXTREMITIES:Rt foot laterl side amputation with dressing,Lt heel dressing. NEUROLOGICAL: No focal deficit, AAOx3. PSYCHIATRIC: Depressed mood. LABORATORY DATA: Please see below. ASSESSMENT/PLAN: 1.ESRD on HD: MWF schedule but fluid overloaded. HD to be done emergently. 2. Decompensated CHF: 2L fluid removal with HD 3.Hypotension: Levophed PRN 4.HCAP: Empiric abx coverage. 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 Abx would cover foot infection as well Anemia in ESRd: Dede as per protocol. 6.NSTEMI: Management as per cardiology. Remove fluid to decrease the demand ischemia and overload. Vital Signs/I&O Vital Signs Date Time Temp Pulse Resp B/P (MAP) Pulse Ox O2 Delivery O2 Flow Rate FiO2 07/01/21 00:30 85 116/58 (77) 95 07/01/21 00:00 97.1 27 07/01/21 00:00 18.0 80 06/30/21 21:00 HVNI-Vapotherm I&O- Last 24 Hours up to 6 AM 07/01/21 06:00 Intake Total 2339.2 ml Output Total 2000 ml Balance 339.2 ml Laboratory Data Labs 24H Laboratory Tests 2 06/30/21 04:50: Lactic Acid Followup at 4 Hours 1.4 06/30/21 07:36: Nucleated Red Blood Cells % (auto) 0.0, Erythrocyte Sedimentation Rate 126H, Activated Partial Thromboplast Time 76.4H, Estimated Mean Plasma Glucose 186H, Hemoglobin A1c 8.1, Phosphorus Level 6.8H, Iron Level 33L, Total Iron Binding Capacity 117L, Transferrin % Saturation 28.2, Ferritin 41582R, Troponin I 3.04#*H, C-Reactive Protein, Quantitative 18.90H 06/30/21 12:37: Activated Partial Thromboplast Time 65.4H, Blood Gas Bicarbonate Standard 17.8, Venous Blood pH 7.314L, Venous Blood Partial Pressure CO2 35.4L, Venous Blood Partial Pressure O2 56.4H, Venous Blood Total Carbon Dioxide 18.7L, Venous Blood HCO3 17.6L, Venous Blood Oxygen Saturation 83.7H, Venous Blood Base Excess - 7.9L 06/30/21 12:55: Troponin I 2.34#*H, Bedside Glucose Confirm (Misc) 783*H 06/30/21 16:11: Bedside Glucose (Misc Panel) 226H 06/30/21 17:14: Bedside Glucose (Misc Panel) 265H 06/30/21 18:06: Activated Partial Thromboplast Time 65.2H, Troponin I 3.28#*H 06/30/21 19:34: Bedside Glucose (Misc Panel) 270H 06/30/21 20:42: Bedside Glucose (Misc Panel) 246H 06/30/21 21:41: Bedside Glucose (Misc Panel) 199H 06/30/21 23:44: Bedside Glucose (Misc Panel) 107 CBC/BMP Laboratory Tests 06/30/21 07:36 Microbiology Microbiology 06/29/21 Blood Culture - Preliminary, Resulted No growth after 24 hours . All specim... 06/29/21 Respiratory Virus Panel (PCR) ([facility]) - Final, Complete 06/29/21 Blood Culture - Preliminary, Resulted No growth after 24 hours . All specim... Allergies Coded Allergies: No Known Allergies (Unverified , 06/29/21) Home Medications Scheduled Allopurinol (Allopurinol) 100 Mg Tablet, 100 MG PO DAILY, (Reported) Aspirin (Aspirin EC) 81 Mg Tablet.dr, 81 MG PO DAILY, (Reported) Calcitriol (Calcitriol) 0.25 Mcg Capsule, 0.25 MCG PO 2XW, (Reported) MON AND FRI Cephalexin (Cephalexin) 500 Mg Capsule, 500 MG PO BID, (Reported) Cholecalciferol (Vitamin D3) (Vitamin D3) 1,000 Unit Tablet, 1,000 UNITS PO DAILY, (Reported) Epoetin Roosevelt-Epbx (Retacrit) 10,000 Unit/1 Ml Vial, 10,000 UNIT INJ ASDIRECTED, (Reported) Furosemide (Furosemide) 40 Mg Tablet, 80 MG PO DAILY, (Reported) Gabapentin (Gabapentin) 300 Mg Capsule, 300 MG PO QHS, (Reported) Glipizide (Glipizide) 5 Mg Tablet, 5 MG PO BID, (Reported) Insulin Glargine,Hum.rec.anlog (Basaglar Kwikpen U-100) 100 Unit/1 Ml Insuln.pen, 20 UNIT SC BID, (Reported) Lactobacillus Acidophilus (Acidophilus) 1 Each Tablet, 1 TAB PO DAILY, (Reported) Levetiracetam (Keppra) 500 Mg Tablet, 500 MG PO BID, (Reported) Metoprolol Tartrate (Metoprolol Tartrate) 75 Mg Tablet, 75 MG PO BID, (Reported) Nifedipine (Nifedipine ER) 90 Mg Tab.er.24, 90 MG PO QAM, (Reported) Omeprazole (Omeprazole) 20 Mg Capsule.dr, 20 MG PO DAILY, (Reported) Polyethylene Glycol 3350 (Miralax) 119 Gm Powder, 17 GM PO DAILY, (Reported) dilute in 8 ounces of water or juice Simvastatin (Simvastatin) 20 Mg Tablet, 20 MG PO QPM, (Reported) Miscellaneous Medications [Med Rec Comment] , (Reported) RECIEVED COPY OF OFFICE VISIT WITH LIST FROM 06/27/21. NOT SURE HOW ACCURATE LIST IS. REVIEWED WITH EXTERNAL MED HISTORY ARTURO ENAMORADO MD Jul 01, 2021 00:55
[2021-07-01] MEDS ORDERED: DARBEPOETIN 200MCG/0.4ML *DIALYSIS* SYRINGE (J0882 PER 1MCG) IV SCH (01:10)
[2021-07-01] MEDS: PIPERACILLIN/TAZOBACTAM SOD 2.25 GM in D5W MINI-BAG PLUS 50 ML IV SCH ×4 (01:34→20:18)
[2021-07-01 06:12] LABS: HEMATOCRIT 25.2 % (36.0-47.0); HEMOGLOBIN 7.7 g/dl (12.0-15.5); MEAN CORPUSCULAR HEMOGLOBIN 23.3 pg (27.0-33.0); MEAN CORPUSCULAR HGB CONC 30.6 g/dl (32.0-36.5); MEAN CORPUSCULAR VOLUME 76.1 fl (80.0-96.0); PLATELET COUNT, AUTOMATED 501 10^3/uL (150-450); RED BLOOD COUNT 3.31 10^6/uL (4.00-5.40); WHITE BLOOD COUNT 20.9 10^3/uL (4.0-10.0)
[2021-07-01 06:42] LABS: ALBUMIN 1.7 GM/DL (3.2-5.2); BILIRUBIN,TOTAL 0.2 MG/DL (0.2-1.0); CALCIUM LEVEL 8.8 MG/DL (8.8-10.2); CHOLESTEROL RISK RATIO 4.333 (<5); CREATININE FOR GFR 2.4 MG/DL (0.55-1.30); GLOMERULAR FILTRATION RATE 21.8 (>45); POTASSIUM SERUM 3.1 MEQ/L (3.5-5.1); TOTAL PROTEIN 7.4 GM/DL (6.4-8.2); TROPONIN I 2.59 NG/ML (< 0.10)
[2021-07-01] MEDS ORDERED: POTASSIUM CHLORIDE 10MEQ SR TABLET PO ONE (08:00)
[2021-07-01] MEDS: levETIRAcetam 250MG TABLET (KEPPRA) PO SCH ×2 (08:14→20:19)
[2021-07-01] MEDS: ASPIRIN 81 MG CHEW TABLET PO SCH (08:14)
[2021-07-01] MEDS: CLOPIDOGREL 75 MG TAB PO SCH (08:14)
[2021-07-01] MEDS: ATORVASTATIN 20 MG TAB PO SCH (08:14)
[2021-07-01] MEDS: VITAMIN D 1,000 INTERNATIONAL UNITS TABLET PO SCH (08:15)
[2021-07-01] MEDS: allopurinoL 100 MG TAB PO SCH (08:15)
[2021-07-01] MEDS ORDERED: CALCITRIOL 0.25 MCG CAP (S0169) PO SCH (09:00)
[2021-07-01 09:55] LABS: TROPONIN I 2.15 NG/ML (< 0.10)
[2021-07-01] MEDS: HEPARIN DRIP 25,000 UNITS in IV 1 EA IV SCH (10:30)
[2021-07-01 11:02] LABS: VANCOMYCIN RANDOM 15.1 UG/ML
[2021-07-01 11:38] LABS: HEMATOCRIT 25.4 % (36.0-47.0); HEMOGLOBIN 7.7 g/dl (12.0-15.5)
[2021-07-01 11:58] LABS: PROLACTIN 8.6 NG/ML; PTH INTACT 578.3 PG/ML (18.5-88.0)
[2021-07-01 11:59] LABS: FOLATE 12.3 NG/ML (>5.4)
[2021-07-01] MEDS ORDERED: VANCOMYCIN HCL 1,000 MG, VIAL MATE ADAPTER 1 EACH in NS 250 ML IV ONE ×6 (12:00)
--- NOTE | 2021-07-01 15:25 | IPNPDOC ---
Subjective Date Seen The patient was seen on 07/01/21. Subjective Chief Complaint/HPI Been well with absolutely no complaint today. She denies of fever, chills, chest pain, palpitation, lower extremity swelling. Constitutional: Denies: Chills, Fever Eyes: Denies: Pain Skin: Denies: Rash Pulmonary: Denies: Dyspnea, Cough Cardiovascular: Denies: Chest Pain, Palpitations, Orthopnea, Edema Gastrointestinal: Denies: Nausea, Vomiting, Abdominal Pain Neurological: Denies: Weakness Objective Physical Examination General Exam: Positive: Alert, Cooperative, Other (Chronically ill-appearing.) Eye Exam: Negative: Sclera icteric ENT Exam: Positive: Atraumatic Neck Exam: Positive: Supple; Negative: JVD Chest Exam: Positive: Rales (Of the right lower lung field.), Other (Coarse crackle of the left lower lung field posteriorly.) Heart Exam: Positive: Rate Normal, Normal S1, Normal S2, Murmurs Abdomen Exam: Positive: Normal bowel sounds, Soft; Negative: Tenderness Extremity Exam: Negative: Clubbing, Edema Skin Exam: Negative: Rash Neuro Exam: Positive: Normal Speech Assessment /Plan Assessment This is a 61-year-old female with past medical history of end-stage renal disease on hemodialysis Thursday via right tunneled dialysis catheter, insulin-dependent diabetes, hypertension, history of stroke with left residual weakness, peripheral vascular disease, right hallux amputation, hysterectomy presented to the hospital last night due to not feeling well. 1. Hypoxic respiratory failure secondary to HAP and cardiogenic pulmonary edema 2. Cardiogenic pulmonary edema 3. NSTEMI 4. Septic versus cardiogenic shock - resolved 5. ESRD on hemodialysis Plan/VTE VTE Prophylaxis Ordered?: Yes Plan 1. Hypoxic respiratory failure secondary to HAP and cardiogenic pulmonary edema -Housing requirement is dramatically improving after he she received one episode with dialysis. This is likely secondary to fluid overload from her underlying ESRD. 2. Cardiogenic pulmonary edema -Received hemodialysis per nephrology. Cardiogenic pulmonary edema is currently improving. 3. NSTEMI -Patient has been loaded with aspirin and Plavix, Lipitor, heparin. Cardiology on board. Currently, being medically managed. -Echo with ejection fraction of 45% and left lateral wall motion hypokinesis. 4. Septic versus cardiogenic shock -resolved 5. ESRD on hemodialysis -Received dialysis yesterday. Nephrology on board. There is no evidence of electrolyte or acid-base derangement. DVT prophylaxis: Heparin GI prophylaxis: Not indicated ICU will be standby. Please reconsult if needed. Disposition transfer out of ICU VS, I&O, 24H, [facility] Vital Signs/I&O Vital Signs Date Time Temp Pulse Resp B/P (MAP) Pulse Ox O2 Delivery O2 Flow Rate FiO2 07/01/21 12:00 98.3 87 18 137/64 (88) 92 High Flow Cannula 6.0 07/01/21 08:00 65 I&O- Last 24 Hours up to 6 AM 07/01/21 06:00 Intake Total 3023.9 ml Output Total 2000 ml Balance 1023.9 ml Laboratory Data 24H LABS Laboratory Tests 2 06/30/21 16:11: Bedside Glucose (Misc Panel) 226H 06/30/21 17:14: Bedside Glucose (Misc Panel) 265H 06/30/21 18:06: Activated Partial Thromboplast Time 65.2H, Troponin I 3.28#*H 06/30/21 19:34: Bedside Glucose (Misc Panel) 270H 06/30/21 20:42: Bedside Glucose (Misc Panel) 246H 06/30/21 21:41: Bedside Glucose (Misc Panel) 199H 06/30/21 23:44: Bedside Glucose (Misc Panel) 107 07/01/21 00:52: Bedside Glucose (Misc Panel) 62L 07/01/21 01:23: Bedside Glucose (Misc Panel) 50L 07/01/21 01:25: Bedside Glucose (Misc Panel) 49L 07/01/21 01:46: Bedside Glucose (Misc Panel) 144H 07/01/21 02:06: Bedside Glucose (Misc Panel) 125H 07/01/21 04:04: Bedside Glucose (Misc Panel) 89 07/01/21 05:45: Nucleated Red Blood Cells % (auto) 0.0, Activated Partial Thromboplast Time 49.9H, Anion Gap 9, Glomerular Filtration Rate 21.8L, Calcium Level 8.8, Total Bilirubin 0.2, Aspartate Amino Transf (AST/SGOT) 20, Alanine Aminotransferase (ALT/SGPT) 24, Alkaline Phosphatase 107, Troponin I 2.59#*H, Total Protein 7.4, Albumin 1.7L, Albumin/Globulin Ratio 0.3L, Triglycerides Level 268H, Total Cholesterol 130, LDL Cholesterol 46, Non-HDL Cholesterol (LDL + VLDL) 100, Total HDL Cholesterol 30L, Cholesterol/HDL Ratio 4.333 07/01/21 06:12: Bedside Glucose (Misc Panel) 71L 07/01/21 06:53: Bedside Glucose (Misc Panel) 81 07/01/21 09:10: Troponin I 2.15*H, Random Vancomycin Level 15.1 07/01/21 11:41: Bedside Glucose (Misc Panel) 93 07/01/21 12:18: Methicillin-Resist S.aureus DNA PCR NOT DETECTED 07/01/21 12:47: Activated Partial Thromboplast Time 52.6H CBC/BMP Laboratory Tests 07/01/21 05:45 07/01/21 11:00 Microbiology Microbiology 07/01/21 Stool Occult Blood ([facility]) - Final, Complete 06/30/21 Stool Occult Blood ([facility]) - Final, Complete 06/29/21 Blood Culture - Preliminary, Resulted No growth after 24 hours . All specim... 06/29/21 Respiratory Virus Panel (PCR) ([facility]) - Final, Complete 06/29/21 Blood Culture - Preliminary, Resulted No growth after 24 hours . All specim... KATHERINE PRATT MD Jul 01, 2021 15:25
--- NOTE | 2021-07-01 16:55 | IPNPDOC ---
Subjective Date Seen The patient was seen on 07/01/21. Subjective Chief Complaint/HPI SUBJECTIVE: Patient was seen at bedside this morning. She is resting comfortably in bed without any acute respiratory distress. Per nursing she was switched from Vapotherm to high flow 6 L was able to saturate above 90%. Patient able to speak with me in full sentences without use of accessory muscles. She denies any chest pain shortness of breath nausea vomiting diarrhea, abdominal pain. OBJECTIVE: Vital signs: See below GENERAL: The patient is a well-developed, well-nourished in no apparent distress. AAOx3 NEURO: No focal neurological deficits HEENT: Head is normocephalic and atraumatic. Extraocular muscles are intact. Pupils are equal, round, and reactive to light and accommodation. Nares appears normal. Moist mucous membranes. Patient has a IJ on the left and permacath on the right. Lines at this point do not look affected there is no erythema or pus around the sites. PULM: Clear to auscultation bilaterally. No wheezing, rhonchi or rales appreciated. CARDIO: Normal S1, S2. no significant murmurs, gallops, rubs or clicks. No signs of peripheral edema ABDOMEN: Soft, nontender, and nondistended. Normal bowel sounds. No significant organomegaly appreciated. EXTREMITIES: No cyanosis, clubbing, rash, lesions. IMAGING: No new imaging LABORATORY DATA: See below ASSESSMENT AND PLAN: This is a 61 yr old w a hx of ESRD, IDDM, Essential HTN, CVA x2, PVD, & recent Right hallux amputation who is admitted for sepsis, HCAP and NSTEMI. Acute hypoxic respiratory failure likely multifactorial secondary to HCAP, pulmonary edema from NSTEMI, CHF -Patient was on Vapotherm on 20 L and 65% FiO2 this morning able to satting at 99%. She was able to transition to high flow at 6 L and was able to sat above 90% without any acute respiratory distress. -Per [facility] (Dr. Stroud/deckhand tuna boat) the goal is to have patient O2 down to 40% FiO2. Currently her O2 requirements currently meet the goal for a transfer however tried calling [facility] again today however at this point there is no bed available. -Status post hemodialysis with 2 L of fluid removal Sepsis/septic shock likely 2/2 to Healthcare associated pneumonia, r/o osteomyelitis RLE -LA now wnl -Zosyn, vancomycin IV renally adjusted, tylenol PRN -XR right foot: Underlying osteomyelitis cannot be excluded and are suspect. -Follow-up blood cultures, sputum culture if able to be given, daily CBC and CMP, monitor CVP, levophed PRN to keep an MAP > 65- careful not to fluid overload in the presence of end-stage renal disease/ hemodialysis. -When more stable, consider MRI RLE -Consider ID consult in the AM NSTEMI -Trop peaked 3.04, trending down currently -Denies chest pain. 4 EKGs with findings significant for sinus rhythm with minimal ST elevation in leads V1 and V2 and diffuse ST segment depressions in all remaining leads. No obvious evolution over the course of the 4 EKGs. Patient has had several troponins with values of 2.59 and 2.15. -Echocardiogram shows ejection fraction 4045 percent, lateral wall motion abnormalities, with moderate mitral insufficiency and left lateral wall motion hypokinesis -Continuing on telemetry for monitoring, c/w triple therapy (heparin drip, ASA and Plavix) -We will get another EKG and troponin for tomorrow morning. We will continue with high intensity statin, gemfibrozil. - We will continue with every 6 hour troponin monitoring. -Cardiology on consultationappreciate their recommendations and further input Hyperglycemia likely secondary to sepsis/stress -Patient had an episode of hyperglycemia with blood sugar over seven hundreds and was started on insulin drip however this morning her blood sugar did dip to the sixties and insulin drip was held this morning and DC'd. -Will order for sliding scale with FSBS every 6 hours plus hypoglycemic protocol. -Continue with her consistent carb diet Cardiogenic pulmonary edema -Patient initially had pulmonary edema and pleural effusion on chest radiograph and is now status post 2 L fluid removal per nephrology via hemodialysis. -Nephrology continues to follow on consultappreciate their recommendations and further input. -We will continue to hold her beta-blockers as well as Lasix due to hypotension. Will consider adding back her meds if she becomes profoundly hypertensive. Meanwhile we will continue to monitor her blood pressure closely and adjust her meds as necessary. -Patient's echo shows ejection fraction of 45% and left lateral wall motion hypokinesis. Cardiology is still in consultation and following appreciate their recommendations and further input. -Patient's oxygen requirements are improving and was able to de-escalate from Vapotherm to high flow and saturate with SPO2 above 90% all day. We will co ntinue to monitor closely. -Associate Professor Of Philosophy on consultation and following appreciate their further recom mendations and input Hx of hypertension - Patient had hypotension and will avoid any beta-blockers at this point. Continue to monitor her blood pressure closely and add on antihypertensives as necessary. Recent Right hallux amputation -Rn Acute Dr. Ewing -Appears clean and well cared for -We will consider getting more imaging to rule out osteomyelitis patient is more stable. ESRD on HD MWF -Patient received hemodialysis yesterday with 2 L fluid removal. -Nephrology is on consultation appreciate their recommendations and further input currently there is no evidence of electrolyte or acid-base derangement at this point. We will continue to monitor her daily labs closely Anemia likely due to chronic disease/ESRD -Nephrology helping manage CVA x2 /PVD -No focal neurological deficit -Continue on ASA & statin History of seizure disorder -Continue with Keppra History of gout -Continue with allopurinol GI px -PPI DVT Px with Heparin gtt CODE STATUS: full Disposition: Pending clinical improvement VS, I&O, 24H, [facility] Vital Signs/I&O Vital Signs Date Time Temp Pulse Resp B/P (MAP) Pulse Ox O2 Delivery O2 Flow Rate FiO2 07/01/21 16:00 98.5 95 18 154/67 (96) 94 High Flow Cannula 6.0 07/01/21 08:00 65 I&O- Last 24 Hours up to 6 AM 07/01/21 06:00 Intake Total 3023.9 ml Output Total 2000 ml Balance 1023.9 ml Laboratory Data 24H LABS Laboratory Tests 2 06/30/21 17:14: Bedside Glucose (Misc Panel) 265H 06/30/21 18:06: Activated Partial Thromboplast Time 65.2H, Troponin I 3.28#*H 06/30/21 19:34: Bedside Glucose (Misc Panel) 270H 06/30/21 20:42: Bedside Glucose (Misc Panel) 246H 06/30/21 21:41: Bedside Glucose (Misc Panel) 199H 06/30/21 23:44: Bedside Glucose (Misc Panel) 107 07/01/21 00:52: Bedside Glucose (Misc Panel) 62L 07/01/21 01:23: Bedside Glucose (Misc Panel) 50L 07/01/21 01:25: Bedside Glucose (Misc Panel) 49L 07/01/21 01:46: Bedside Glucose (Misc Panel) 144H 07/01/21 02:06: Bedside Glucose (Misc Panel) 125H 07/01/21 04:04: Bedside Glucose (Misc Panel) 89 07/01/21 05:45: Nucleated Red Blood Cells % (auto) 0.0, Activated Partial Thromboplast Time 49.9H, Anion Gap 9, Glomerular Filtration Rate 21.8L, Calcium Level 8.8, Total Bilirubin 0.2, Aspartate Amino Transf (AST/SGOT) 20, Alanine Aminotransferase (ALT/SGPT) 24, Alkaline Phosphatase 107, Troponin I 2.59#*H, Total Protein 7.4, Albumin 1.7L, Albumin/Globulin Ratio 0.3L, Triglycerides Level 268H, Total Cholesterol 130, LDL Cholesterol 46, Non-HDL Cholesterol (LDL + VLDL) 100, Total HDL Cholesterol 30L, Cholesterol/HDL Ratio 4.333 07/01/21 06:12: Bedside Glucose (Misc Panel) 71L 07/01/21 06:53: Bedside Glucose (Misc Panel) 81 07/01/21 09:10: Troponin I 2.15*H, Random Vancomycin Level 15.1 07/01/21 11:41: Bedside Glucose (Misc Panel) 93 07/01/21 12:18: Methicillin-Resist S.aureus DNA PCR NOT DETECTED 07/01/21 12:47: Activated Partial Thromboplast Time 52.6H CBC/BMP Laboratory Tests 07/01/21 05:45 07/01/21 11:00 Microbiology Microbiology 07/01/21 Stool Occult Blood ([facility]) - Final, Complete 06/30/21 Stool Occult Blood ([facility]) - Final, Complete 06/29/21 Blood Culture - Preliminary, Resulted No growth after 24 hours . All specim... 06/29/21 Respiratory Virus Panel (PCR) ([facility]) - Final, Complete 06/29/21 Blood Culture - Preliminary, Resulted No growth after 24 hours . All specim... GME ATTESTATION GME ATTESTATION My faculty preceptor for this patient encounter was physically present during the encounter and was fully available. All aspects of the patient interview, examination, medical decision making process, and medical care plan development were reviewed and approved by the faculty preceptor. The faculty preceptor is aware and concurs with the plan as stated in the body of this note and will a ttest to such by his/her cosignature. ATTENDING NOTE I, Lucius Berman MD, have independently examined this patient and performed my own physical exam, as well as reviewed the documentation and edited where necessary. I have discussed in detail with the resident / student the findings and plan of treatment as documented by the resident / student and edited their note. I agree with their findings and treatment plan and have edited their documentation. Alma Larsen DO Jul 01, 2021 16:55 LUCIUS BERMAN MD Jul 05, 2021 12:39
[2021-07-01] MEDS ORDERED: GLUCOSE 4GM CHEW TABLET PO PRN (17:40)
[2021-07-01] MEDS ORDERED: GLUCAGON INJ 1MG VIAL SC PRN (17:40)
[2021-07-01] MEDS ORDERED: DEXTROSE 50% 50 ML SYRINGE IV PRN (17:40)
[2021-07-01] MEDS: HumaLOG INSULIN (NovoLOG) PER UNIT SC SCH ×2 (18:00→23:45)
--- NOTE | 2021-07-01 19:06 | ECGEPIP ---
[facility] Test Date: 2021-06-30 Pat Name: VITO DIAMOND Department: Room: [place] [address] Gender: Female Vice President Of Business Development: BOYD : 1960 Requested By: YAMILETH BERRY Order Number: [id number] Reading MD: Jayden Bishop Measurements Intervals [place] Rate: 80 P: 36 DC: 160 QRS: -27 QRSD: 86 T: 254 QT: 418 QTc: 482 Interpretive Statements Normal sinus rhythm Marked ST abnormality, possible inferolateral subendocardial injury Similar to tracing done 06-29-21 Electronically Signed on 07-01-2021 19:06:05 EDT by Jayden Bishop
--- NOTE | 2021-07-01 19:12 | ECGEPIP ---
[facility] Test Date: 2021-06-30 Pat Name: VITO DIAMOND Department: Room: [place] [address] Gender: Female Passenger Interline Clerk: MENG : 1960 Requested By: YAMILETH BERRY Order Number: [id number] Reading MD: Jayden Bishop Measurements Intervals [place] Rate: 80 P: 42 RI: 176 QRS: -25 QRSD: 92 T: 247 QT: 410 QTc: 472 Interpretive Statements Normal sinus rhythm Marked ST abnormality, possible inferolateral subendocardial injury Similar to tracing done 632 on same date Electronically Signed on 07-01-2021 19:12:22 EDT by Jayden Bihsop
--- NOTE | 2021-07-01 19:15 | ECGEPIP ---
[facility] Test Date: 2021-07-01 Pat Name: VITO DIAMOND Department: Room: [place] [address] Gender: Female Simulation Analyst: Wilfredo ORR RN : 1960 Requested By: Eugenio Johnson Order Number: [id number] Reading MD: Jayden Bishop Measurements Intervals [place] Rate: 82 P: 37 WV: 140 QRS: -15 QRSD: 92 T: 267 QT: 410 QTc: 479 Interpretive Statements Normal sinus rhythm ST abnormality suspect ischemia Similar to tracing done 06-30-21 Electronically Signed on 07-01-2021 19:15:14 EDT by Jayden Bishop
[2021-07-01] MEDS: GABAPENTIN 300 MG CAP PO SCH (20:19)
[2021-07-01] MEDS: HEPARIN SOD (PORCINE) 5000UNITS/ML 1ML VIAL/SYRINGE IV PRN (21:26)
--- NOTE | 2021-07-01 22:40 | IPNPDOC ---
Subjective CC/HPI The patient is a 61-year-old female admitted with a reason for visit of Nstemi, Pneumonia, Sepsis. Events since last encounter Pt was dialyzed yesterday and 2Kg fluid removed. SOB is a lot better. Trop is improving now. She continues on Heparin drip and IV Abx. She is requiring O2 via 6L NC. General: Denies: Chills, Night Sweats Constitutional: Denies: Chills, Fever Eyes: Denies: Pain, Vision change ENT: Denies: Head Aches, Ear Pain Skin: Reports: Lesions (Rt foot); Denies: Rash Pulmonary: Reports: Dyspnea; Denies: Cough Cardiovascular: Reports: Orthopnea; Denies: Chest Pain Gastrointestinal: Denies: Nausea Genitourinary: Denies: Dysuria, Frequency Hematologic: Denies: Bruising, Bleeding Excessively Musculoskeletal: Denies: Neck Pain, Back Pain Neurological: Reports: Weakness Psych: Reports: Mood Normal Objective Physical Examination General Exam: Alert; No: No Acute Distress EYE EXAM: PERRLA, Conjunctiva & lids normal, EOMI ENT EXAM: Atraumatic, Mucous membr. moist/pink Neck Exam: Supple; No: JVD Chest Exam: Rales (at bases) Heart Exam: Rate Normal; No: Murmurs, Rubs ABDOMEN EXAM: Normal bowel sounds, Soft; No: Tenderness Female Exam: Nl Ext Genitalia Extremity Exam: Other (Rt foot dressing and Lt heel dressing.); No: Clubbing, Edema Neuro Exam: Normal Speech, Strength at 5/5 X4 ext Psych Exam: Mental status NL, Mood NL Vital Signs/I&O Vital Signs Date Time Temp Pulse Resp B/P (MAP) Pulse Ox O2 Delivery O2 Flow Rate FiO2 07/01/21 20:00 97.2 96 19 155/74 (101) 97 High Flow Cannula 6.0 07/01/21 08:00 65 I&O- Last 24 Hours up to 6 AM 07/01/21 06:00 Intake Total 3023.9 ml Output Total 2000 ml Balance 1023.9 ml Laboratory Data Labs 24H Laboratory Tests 2 06/30/21 23:44: Bedside Glucose (Misc Panel) 107 07/01/21 00:52: Bedside Glucose (Misc Panel) 62L 07/01/21 01:23: Bedside Glucose (Misc Panel) 50L 07/01/21 01:25: Bedside Glucose (Misc Panel) 49L 07/01/21 01:46: Bedside Glucose (Misc Panel) 144H 07/01/21 02:06: Bedside Glucose (Misc Panel) 125H 07/01/21 04:04: Bedside Glucose (Misc Panel) 89 07/01/21 05:45: Nucleated Red Blood Cells % (auto) 0.0, Activated Partial Thromboplast Time 49.9H, Anion Gap 9, Glomerular Filtration Rate 21.8L, Calcium Level 8.8, Total Bilirubin 0.2, Aspartate Amino Transf (AST/SGOT) 20, Alanine Aminotransferase (ALT/SGPT) 24, Alkaline Phosphatase 107, Troponin I 2.59#*H, Total Protein 7.4, Albumin 1.7L, Albumin/Globulin Ratio 0.3L, Triglycerides Level 268H, Total Cholesterol 130, LDL Cholesterol 46, Non-HDL Cholesterol (LDL + VLDL) 100, Total HDL Cholesterol 30L, Cholesterol/HDL Ratio 4.333 07/01/21 06:12: Bedside Glucose (Misc Panel) 71L 07/01/21 06:53: Bedside Glucose (Misc Panel) 81 07/01/21 09:10: Troponin I 2.15*H, Random Vancomycin Level 15.1 07/01/21 11:41: Bedside Glucose (Misc Panel) 93 07/01/21 12:18: Methicillin-Resist S.aureus DNA PCR NOT DETECTED 07/01/21 12:47: Activated Partial Thromboplast Time 52.6H 07/01/21 17:29: Bedside Glucose (Misc Panel) 47L 07/01/21 17:48: Bedside Glucose (Misc Panel) 69L 07/01/21 18:09: Bedside Glucose (Misc Panel) 89 07/01/21 20:09: Activated Partial Thromboplast Time 61.7H CBC/BMP Laboratory Tests 07/01/21 05:45 07/01/21 11:00 FSBS Laboratory Tests Test 06/30/21 23:44 07/01/21 00:52 07/01/21 01:23 07/01/21 01:25 Range/Units Bedside Glucose (Misc Panel) 107 62 50 49 80-115 MG/DL Test 07/01/21 01:46 07/01/21 02:06 07/01/21 04:04 07/01/21 06:12 Range/Units Bedside Glucose (Misc Panel) 144 125 89 71 80-115 MG/DL Test 07/01/21 06:53 07/01/21 11:41 07/01/21 17:29 07/01/21 17:48 Range/Units Bedside Glucose (Misc Panel) 81 93 47 69 80-115 MG/DL Test 07/01/21 18:09 Range/Units Bedside Glucose (Misc Panel) 89 80-115 MG/DL Current Medications Current Medications Medications (Trade) Dose Ordered Sig/Mir Route PRN Reason Start Time Stop Time Status Last Admin Dose Admin Acetaminophen (Tylenol Tab) 650 mg Q4H PRN PO MILD PAIN or TEMP > 101 06/30/21 05:50 06/30/21 20:58 Al Hydrox/Mg Hydrox/Simethicone (Mylanta) 30 ml DAILY PRN PO DYSPEPSIA 06/30/21 05:50 Albuterol/ Ipratropium (Duoneb (Ipr 0.5mg/Alb 2.5mg)) 3 ml Q20M PRN NEB SHORTNESS OF BREATH 06/29/21 21:35 06/29/21 21:56 DC 06/29/21 21:56 Allopurinol (Zyloprim) 100 mg DAILY PO 06/30/21 09:00 07/01/21 08:15 Aspirin (Aspirin Chewable) 81 mg DAILY PO 06/30/21 09:00 07/01/21 08:14 Atorvastatin Calcium (Lipitor) 80 mg DAILY PO 06/30/21 09:00 07/01/21 08:14 Calcitriol (Rocaltrol) 0.25 mcg MoFr@0900 PO 07/01/21 09:00 07/01/21 08:15 Clopidogrel Bisulfate (PLAVix) 75 mg DAILY PO 06/30/21 09:00 07/01/21 08:14 Darbepoetin Roosevelt (Aranesp (Dialysis Use)) 200 mcg HD IV 07/01/21 01:10 Dextrose (Dextrose 50%) 25 ml ASDIRECTED PRN IV SEE LABEL COMMENTS 06/30/21 07:30 07/01/21 01:30 Dextrose (Dextrose 50%) 25 ml ASDIRECTED PRN IV SEE LABEL COMMENTS 07/01/21 17:40 07/01/21 17:40 DC Furosemide (Lasix) 80 mg DAILY PO 06/30/21 09:00 Cancel Gabapentin (Neurontin) 300 mg QHS PO 06/30/21 21:00 07/01/21 20:19 Glucagon (Glucagon) 1 mg ASDIRECTED PRN SC SEE LABEL COMMENTS 06/30/21 07:30 Glucagon (Glucagon) 1 mg ASDIRECTED PRN SC SEE LABEL COMMENTS 07/01/21 17:40 07/01/21 17:41 DC Glucose (Glucose) 16 GM ASDIRECTED PRN PO SEE LABEL COMMENTS 06/30/21 07:30 Glucose (Glucose) 16 GM ASDIRECTED PRN PO SEE LABEL COMMENTS 07/01/21 17:40 07/01/21 17:41 DC Heparin Sodium (Heparin) Please refer to ... ASDIRECTED XX 06/30/21 10:55 07/01/21 10:54 DC Heparin Sodium (Heparin) dose as per volume indica... ASDIRECTED PRN IV SEE LABEL COMMENTS 06/30/21 10:55 07/01/21 10:54 DC Heparin Sodium (Porcine) (Heparin) ASDIRECTED PRN IV SEE LABEL COMMENTS 06/30/21 05:50 07/01/21 21:26 Heparin Sodium (Porcine) 82938 units/IV Miscellaneous Supplies 250 ml @ 8.16 mls/hr DRIP IV 06/30/21 07:05 07/01/21 10:30 Heparin Sodium (Porcine) 00622 units/IV Miscellaneous Supplies 250 ml @ 8.16 mls/hr Q24H IV 06/30/21 01:10 06/30/21 06:05 DC 06/30/21 01:41 Home Med (Home Med List Complete!) ASDIRECTED XX 06/30/21 07:35 06/30/21 07:37 DC Insulin Detemir (Levemir Insulin) 15 units BID SC 06/30/21 09:00 06/30/21 14:13 DC 06/30/21 12:11 Insulin Human Lispro (HumaLOG INSULIN) SEE PROTOCOL TABLE Q6H SC 07/01/21 18:00 Insulin Human Lispro (HumaLOG INSULIN) See Protocol Table AC SC 06/30/21 07:30 06/30/21 14:13 DC Insulin Human Lispro (HumaLOG INSULIN) See Protocol Table QHS SC 06/30/21 21:00 06/30/21 14:13 DC Insulin Human Regular 100 unit/ IV Miscellaneous Supplies 100 ml @ 0 mls/hr Q0M IV 06/30/21 14:15 Cancel Insulin Human Regular 100 unit/ IV Miscellaneous Supplies 100 ml @ 0 mls/hr Q0M IV 06/30/21 14:40 07/01/21 01:58 DC 06/30/21 15:19 Levetiracetam (Keppra) 500 mg BID PO 06/30/21 09:00 07/01/21 20:19 Magnesium Hydroxide (Milk Of Magnesia) 30 ml DAILY PRN PO CONSTIPATION 06/30/21 05:50 Metoprolol Tartrate (Lopressor) 75 mg BID PO 06/30/21 09:00 Cancel Nifedipine (Procardia Xl) 90 mg QAM PO 06/30/21 09:00 Cancel Nitroglycerin (Nitrostat (1/ 150)) 0.4 mg Q5MP PRN SL ANGINA 06/30/21 05:50 Non-Formulary Medication ( See Comment Field Below ) [facility]. DOSING ASDIRECTED XX 06/30/21 09:00 07/01/21 14:13 DC Non-Formulary Medication (Heparin Iv Rate Change Documentation ml/ Hr) ASDIRECTED XX 06/30/21 05:50 07/05/21 05:49 07/01/21 14:12 Non-Formulary Medication (Insulin Iv Rate Change Documentation ml/ Hr) ASDIRECTED XX 06/30/21 14:15 07/30/21 14:14 Cancel Non-Formulary Medication (Insulin Iv Rate Change Documentation ml/ Hr) ASDIRECTED XX 06/30/21 14:40 07/01/21 01:58 DC 06/30/21 21:54 Norepinephrine Bitartrate 8 mg/ Dextrose 508 ml @ 15.24 mls/ hr Q24H IV 06/30/21 12:10 06/30/21 12:19 DC Norepinephrine Bitartrate 8 mg/ Dextrose 508 ml @ 15.24 mls/ hr Q24H IV 06/30/21 12:19 06/30/21 12:20 DC Norepinephrine Bitartrate 8 mg/ Dextrose 508 ml @ 15.24 mls/ hr Q24H IV 06/30/21 12:25 07/01/21 07:59 DC Piperacillin Sod/ Tazobactam Sod 2.25 gm/Dextrose 50 ml @ 50 mls/hr Q6H IV 06/30/21 08:00 07/01/21 20:18 Simvastatin (Zocor) 20 mg QPM PO 06/30/21 21:00 06/30/21 07:56 DC Vancomycin HCl 500 mg/Dextrose 110 ml @ 110 mls/hr Q12H IV 06/30/21 07:35 06/30/21 08:53 DC Vitamin D (Vitamin D) 1,000 units DAILY PO 06/30/21 09:00 07/01/21 08:15 Allergies Coded Allergies: No Known Allergies (Unverified , 06/29/21) Assessment/Plan Date Seen The patient was seen on 07/01/21 in AM. Plan / VTE VTE Prophylaxis Ordered?: Yes Plan Orders past 48 Hours Orders Piperacillin/Tazobactam Sod (Zosyn) (06/29/21 22:35) Ns (Nacl 0.9%) (06/29/21 22:45) Cardiac Marker Panel (06/29/21 23:21) Ecg With Reading Er Phys (06/29/21 23:21) Aspirin Chewable (Aspirin Chewable) (06/30/21 01:10) Clopidogrel Bisulfate (Plavix) (06/30/21 01:10) Heparin (Heparin) (06/30/21 01:10) Iv W/Heparin Drip (06/30/21 01:10) Admission / Observation Status (06/30/21 05:49) Telemetry 48 Hr Order (06/30/21 05:49) Code Status (06/30/21 05:49) Vital Signs Standard Of Care (06/30/21 05:49) Bedrest (06/30/21 05:49) Fall Risk Precautions (06/30/21 05:49) Intake & Output: Every 4 Hours Q4H (06/30/21 05:49) Continuous Pulse Oximeter (06/30/21 05:49) Fsbs____Freq. (Fingerstick) Q6H (06/30/21 05:49) Weigh Daily 06 (06/30/21 05:49) Saline Lock Iv (06/30/21 05:49) Cardiology Consult (06/30/21 05:49) Acetaminophen Tab (Tylenol Tab) (06/30/21 05:50) Milk Of Magnesia (Milk Of Magnesia) (06/30/21 05:50) Aluminum/Magnesium/Simeth (Mylanta) (06/30/21 05:50) Echocard,Doppler/Color Flow (06/30/21 05:49) Stool For Occult Blood (06/30/21 05:49) Clopidogrel Bisulfate (Plavix) (06/30/21 09:00) Nitroglycerin (Nitrostat (1/150)) (06/30/21 05:50) Atorvastatin (Lipitor) (06/30/21 09:00) Piperacillin/Tazobactam Sod (Zosyn) (06/30/21 08:00) Elevate Head Of Bed (06/30/21 05:49) Aspiration Precautions (06/30/21 05:49) Weight (Kilograms) (06/30/21 05:49) Stool For Occult Blood DAILY (06/30/21 05:49) Monitor For Bleeding (06/30/21 05:49) Notify Provider If: (06/30/21 05:49) Heparin (Heparin) (06/30/21 05:50) Heparin Iv Rate Change Doc (Heparin Iv R (06/30/21 05:50) Complete Blood Count (06/30/21 05:49) Partial Thromboplastin Time (06/30/21 05:49) Anticoagulant Infusion (06/30/21 05:49) Hemoglobin A1c (06/30/21 05:49) Electrocardiogram Adult (06/30/21 05:49) Vitamin B12 Level (06/30/21 05:49) Folate (06/30/21 05:49) Iron (Fe) (06/30/21 05:49) Ferritin (06/30/21 05:49) Total Iron Binding Capacit (06/30/21 05:49) Urinalysis (06/30/21 06:06) Creatinine,Random Urine (06/30/21 06:06) Sputum Culture And Gram Stain (06/30/21 06:21) Urine Strep Pneumoniae Antigen (06/30/21 06:21) Legionella Antigen Urine (06/30/21 06:21) Chlamydia Pneumoniae Trina (06/30/21 06:21) Aspirin Chewable (Aspirin Chewable) (06/30/21 09:00) Heparin Drip (Heparin Drip) (06/30/21 07:05) Phosphorous Level (06/30/21 05:49) Prolactin (06/30/21 05:49) Pth Intact (06/30/21 05:49) Troponin (06/30/21 05:49) Insulin Lispro (Humalog Insulin) (06/30/21 07:30) Insulin Lispro (Humalog Insulin) (06/30/21 21:00) D50w (Dextrose 50%) (06/30/21 07:30) Glucose (Glucose) (06/30/21 07:30) Glucagon (Glucagon) (06/30/21 07:30) Allopurinol (Zyloprim) (06/30/21 09:00) Vitamin D (Vitamin D) (06/30/21 09:00) Gabapentin (Neurontin) (06/30/21 21:00) Levetiracetam (Keppra) (06/30/21 09:00) Simvastatin (Zocor) (06/30/21 21:00) Insulin Detemir (Levemir Insulin) (06/30/21 09:00) Foot, Complete (06/30/21 07:29) Vancomycin Hcl (Vancomycin Hcl) (06/30/21 07:35) Pharmacy Vancomycin Consult (06/30/21 07:32) Home Med List Complete! (Home Med List C (06/30/21 07:35) Calcitriol (Rocaltrol) (07/01/21 09:00) Erythrocyte Sedimentation Rate (06/30/21 07:36) C Reactive Protein Quantitativ (06/30/21 07:36) Electrocardiogram Adult (06/30/21 08:37) Cpap Inpatient (06/30/21 08:44) Vancomycin Hcl (Vancomycin Hcl)... (06/30/21 09:00) Note Patient Comment ( See Comment (06/30/21 09:00) Partial Thromboplastin Time (06/30/21 13:00) Partial Thromboplastin Time (06/30/21 19:00) Portable Chest X-Ray (06/30/21 09:58) Venous Blood Gas (06/30/21 10:10) Vs Q15m Icu/Pcu,Q30m M/S Hd (06/30/21 10:53) Hemodialysis Acute Orders (06/30/21 10:53) Heparin (Heparin) (06/30/21 10:55) Heparin (Heparin) (06/30/21 10:55) D5w (Dextrose 5%) W/Norepinephrine Carrie (06/30/21 12:10) D5w (Dextrose 5%) W/Norepinephrine Carrie (06/30/21 12:19) D5w (Dextrose 5%) W/Norepinephrine Carrie (06/30/21 12:25) Bedside Glucose Confirmation (06/30/21 12:51) Troponin (06/30/21 12:55) Iv W/Insulin Regular In 0.9 % Nacl (06/30/21 14:40) Insulin Iv Rate Change Documen (Insulin (06/30/21 14:40) Complete Blood Count (07/01/21 06:00) Complete Blood Count (07/02/21 06:00) Complete Blood Count (07/03/21 06:00) Complete Comphrensive Metaboli (07/01/21 06:00) Complete Comphrensive Metaboli (07/02/21 06:00) Complete Comphrensive Metaboli (07/03/21 06:00) Troponin (06/30/21 17:08) * Nursing Order * (06/30/21 17:18) Electrocardiogram Adult (07/01/21 06:00) Fingerstick Blood Sugar (06/30/21 16:11) Fingerstick Blood Sugar (06/30/21 17:14) Partial Thromboplastin Time (07/01/21 06:00) * Nursing Order * (06/30/21 19:17) Fingerstick Blood Sugar (06/30/21 19:34) Cardiac Risk Profile (07/01/21 06:00) Troponin (07/01/21 06:00) Resp Order Cpoe (06/30/21 ) Fingerstick Blood Sugar (06/30/21 20:42) Fingerstick Blood Sugar (06/30/21 21:41) Fingerstick Blood Sugar (06/30/21 23:44) Fingerstick Blood Sugar (07/01/21 00:52) Occult Blood Stool Specimen (07/01/21 00:57) Darbepoetin (Aranesp (Dialysis Use)) (07/01/21 01:10) Fingerstick Blood Sugar (07/01/21 01:23) Fingerstick Blood Sugar (07/01/21 01:25) Fingerstick Blood Sugar (07/01/21 01:46) Fingerstick Blood Sugar (07/01/21 02:06) Fingerstick Blood Sugar (07/01/21 04:04) Fingerstick Blood Sugar (07/01/21 06:12) Fingerstick Blood Sugar (07/01/21 06:53) Consistent Carbohydrates (07/01/21 Breakfast) Partial Thromboplastin Time (07/01/21 13:00) Transfer (In House) (07/01/21 07:55) Potassium Chloride (Micro-K Extencaps) (07/01/21 08:00) Hemoglobin & Hematocrit (07/01/21 11:00) Troponin (07/01/21 08:17) Fsbs Q6h (Fingerstick) Q6H (07/01/21 08:31) Vancomycin Random (07/01/21 09:10) Occult Blood Stool Specimen (07/01/21 11:15) Fingerstick Blood Sugar (07/01/21 11:41) Mrsa Pcr Screen (07/01/21 05:49) Partial Thromboplastin Time (07/01/21 20:00) Fsbs Q6h (Fingerstick) Q6 (07/01/21 17:36) Hypoglycemic Protocol (07/01/21 17:36) Insulin Lispro (Humalog Insulin) (07/01/21 18:00) D50w (Dextrose 50%) (07/01/21 17:40) Glucose (Glucose) (07/01/21 17:40) Glucagon (Glucagon) (07/01/21 17:40) Electrocardiogram Adult (07/02/21 05:00) Fingerstick Blood Sugar (07/01/21 17:29) Fingerstick Blood Sugar (07/01/21 17:48) Fingerstick Blood Sugar (07/01/21 18:09) Transfuse Packed Cells (07/02/21 08:00) Packed Cells (07/02/21 06:00) Plan Text 1.ESRD on HD: MWF schedule but HD done emergently yesterday. Next session will be done tomorrow. 2. Decompensated CHF: 2L fluid removal with HD. Next Hd in AM. 3.Hypotension: improved now. 4.HCAP: Empiric abx coverage. 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 Abx would cover foot infection as well 6.Anemia in ESRd: Dede as per protocol. 7.NSTEMI: Management as per cardiology. Remove fluid to decrease the demand ischemia and overload.Heparin drip ongoing. ARTURO ENAMORADO MD Jul 01, 2021 22:40
[2021-07-02] VITALS (15 sets, daily range): BP systolic 121–182; BP diastolic 70–84; O2SAT 97–100
[2021-07-02] MEDS: PIPERACILLIN/TAZOBACTAM SOD 2.25 GM in D5W MINI-BAG PLUS 50 ML IV SCH ×2 (01:48→08:07)
[2021-07-02 04:22] LABS: HEMATOCRIT 26.3 % (36.0-47.0); HEMOGLOBIN 7.9 g/dl (12.0-15.5); MEAN CORPUSCULAR VOLUME 76.7 fl (80.0-96.0); PLATELET COUNT, AUTOMATED 561 10^3/uL (150-450); RED BLOOD COUNT 3.43 10^6/uL (4.00-5.40); WHITE BLOOD COUNT 16.3 10^3/uL (4.0-10.0)
[2021-07-02 04:33] LABS: INR 1.07; PROTHROMBIN TIME 14.4 SECONDS (12.7-14.5)
[2021-07-02] MEDS: HumaLOG INSULIN (NovoLOG) PER UNIT SC SCH ×4 (05:32→23:34)
[2021-07-02 05:39] LABS: ALBUMIN 1.7 GM/DL (3.2-5.2); BILIRUBIN,TOTAL 0.2 MG/DL (0.2-1.0); CALCIUM LEVEL 8.4 MG/DL (8.8-10.2); CREATININE FOR GFR 2.95 MG/DL (0.55-1.30); GLOMERULAR FILTRATION RATE 17.2 (>45); TOTAL PROTEIN 6.6 GM/DL (6.4-8.2)
[2021-07-02] MEDS: CARVedilol 6.25 MG TAB PO SCH ×2 (08:06→20:38)
[2021-07-02] MEDS: ASPIRIN 81 MG CHEW TABLET PO SCH (08:06)
[2021-07-02] MEDS: levETIRAcetam 250MG TABLET (KEPPRA) PO SCH ×2 (08:06→20:38)
[2021-07-02] MEDS: allopurinoL 100 MG TAB PO SCH (08:07)
[2021-07-02] MEDS: ATORVASTATIN 20 MG TAB PO SCH (08:07)
[2021-07-02] MEDS: CLOPIDOGREL 75 MG TAB PO SCH (08:07)
[2021-07-02] MEDS: VITAMIN D 1,000 INTERNATIONAL UNITS TABLET PO SCH (08:07)
[2021-07-02 09:14] LABS: TROPONIN I 2.36 NG/ML (< 0.10)
--- NOTE | 2021-07-02 09:15 | IPN ---
PROGRESS NOTE DATE: 07/02/2021 SUBJECTIVE: Mrs. Hernandez is feeling better. Yesterday, she underwent dialysis. Her blood pressure is improved, her breathing has improved as well. She tells me that she feels very tired but otherwise improved. She complains about not being able to get enough sleep due to frequent blood pressure measurements, lab draws, etc. She does admit that last night she had an episode of epigastric and lower retrosternal pain that lasted about 15 minutes. She now admits that she occasionally has similar symptoms on and off for quite some time. OBJECTIVE: VITAL SIGNS: This morning blood pressure is 166/76, heart rate has been in the 90s and low 100s. She is afebrile. Saturation is in the high 90s on six liters of oxygen. Her fluid balance yesterday was recorded somewhat positive. She had dialysis the day before yesterday with 2 liters being removed and it is expected that she will have another dialysis session today. GENERAL: She is alert and oriented. She has a dialysis catheter on the right side on her neck and a triple lumen catheter in the left IJ. LUNGS: Otherwise reasonably clear even though respiratory effort is poor and there are somewhat diminished breath sounds over the bases. HEART: Regular rhythm. I do not appreciate any arlene gallop or murmur. ABDOMEN: Soft, no guarding. No hepatosplenomegaly. EXTREMITIES: Free of edema. Her pulse on the left lower extremity and [employer] is palpable, on the right it feels rather weak. NEUROLOGIC: She is weak with not much muscle mass but otherwise I do not appreciate any focal signs. LABORATORY DATA: This morning, basic metabolic panel: Sodium is 137, potassium is 5.0, BUN is 52, creatinine is 2.9 and glucose is 170. CBC: Hemoglobin is 7.9, hematocrit is 26, platelet count is 561,000. WBC count is 16. Her blood cultures have been negative. EKG continues to reveal diffuse ST segment abnormalities. The echocardiogram again performed two days ago revealed inferolateral and lateral wall motion abnormality with EF of approximately 45 to 50% and approximately moderate mitral insufficiency. ASSESSMENT AND PLAN: Mrs. Hernandez is a 61-year-old female with a multitude of medical problems. She presented with NSTEMI. She very likely was septic even though we are not identifying any offending organism with pneumonia and she was hypotensive. Now, her condition is improving. It has been approximately 48 hours since she was started on Heparin and I believe that the administration can be discontinued and replaced with just DVT prophylactic dose later today or tomorrow morning. I would continue aspirin and Plavix. She starts to be somewhat tachycardic and I believe that we can put her on a beta clarence because her blood pressure if anything is a little high. As far as the choice is concerned, I am going to give her Carvedilol at a small dose to see how it is tolerated. Otherwise, she is written for long-acting nifedipine for blood pressure control which is an acceptable choice even though would not be my first choice. It is likely that her blood pressure is going to improve with dialysis and consequently I wonder whether the administration should be switched to evening. Otherwise, she is on high dose statin and other medications known to be beneficial. I spoke with her about cardiac catheterization and I talked to her about possible outcomes that include medical management, PCI or CABG. She understands the implications and wants to proceed. Unfortunately, we have not been able to find a receiving facility that would be available to take the patient. I am hopeful that it will happen later this week.
[2021-07-02] MEDS: HEPARIN DRIP 25,000 UNITS in IV 1 EA IV SCH (10:01)
--- NOTE | 2021-07-02 11:31 | IPNPDOC ---
Subjective Date Seen The patient was seen on 07/02/21. Subjective Chief Complaint/HPI SUBJECTIVE: Patient was seen at bedside this morning. Patient reports that last night she had one episode of atypical chest pain that lasted about 10 minutes located around her mid epigastric region which did resolve without any use of medications. Chest pain was not associated with any shortness of breath. She denies any nausea vomiting abdominal pain vision changes (blurry vision double vision), fever, shaking chills. She also states that she has some coughing however not increased from previous days and not associate with any sputum production. OBJECTIVE: Vital signs: See below GENERAL: The patient is a well-developed, well-nourished in no apparent distress. AAOx3 NEURO: No focal neurological deficits HEENT: Head is normocephalic and atraumatic. Extraocular muscles are intact. Pupils are equal, round, and reactive to light and accommodation. Nares appears normal. Moist mucous membranes. Patient has a IJ on the left and permacath on the right. Lines do not look affected. there is no erythema or pus around the sites. PULM: Clear to auscultation bilaterally. No wheezing, rhonchi or rales appreciated. CARDIO: Normal S1, S2. no significant murmurs, gallops, rubs or clicks. No signs of peripheral edema ABDOMEN: Soft, nontender, and nondistended. Normal bowel sounds. No significant organomegaly appreciated. EXTREMITIES: No clubbing, rash, lesions. Right foot is dressed in bandages and there is no pus or blood seen through the bandages. IMAGING: No new imaging LABORATORY DATA: See below ASSESSMENT AND PLAN: This is a 61 yr old w a hx of ESRD, IDDM, Essential HTN, CVA x2, PVD, & recent Right hallux amputation who is admitted for sepsis, HCAP and NSTEMI. Acute hypoxic respiratory failure likely multifactorial secondary to HCAP, pulmonary edema from NSTEMI, CHF -Patient continues to sat well above 90% on 6 L of nasal cannula without any acute respiratory distress. AAO x3 -Per [facility] (Dr. Stroud/funeral location manager) the goal is to have patient FIO2 down to 40%. Currently her O2 requirements currently meet the goal for a transfer however tried calling [facility] again today and there is no bed availability currently. -Status post hemodialysis with 2 L of fluid removal Sepsis likely 2/2 to Healthcare associated pneumonia, r/o osteomyelitis RLE -LA now wnl -Continue with IV vancomycin and Zosyn Zosyn with nice tylenol PRN -XR right foot: Underlying osteomyelitis cannot be excluded and are suspect. -Follow-up blood cultures, sputum culture if able to be given, daily CBC and C MP, monitor CVP, levophed PRN to keep an MAP > 65- careful not to fluid overload in the presence of end-stage renal disease/ hemodialysis. -When more stable, consider MRI RLE -Consider ID consult in the AM NSTEMI -Trop peaked 3.04, trending down currently and currently leveled out. -At one episode of atypical chest pain last night which lasted about 10 minutes however to resolve on its own without the use of any medications. EKG this morning was reviewed and there is no acute changes from previous day. -Echocardiogram from 2 days ago shows ejection fraction 4045 percent, lateral wall motion abnormalities, with moderate mitral insufficiency and left lateral wall motion hypokinesis. -Cardiology on consultation and have discussed over the phone that patient is to continue on aspirin and Plavix and continue on heparin drip for total of 72 hours. Will DC heparin drip tomorrow morning at this point with the discussion with cardiology, patient will need a follow-up outpatient with cardiology for stress test and angiography as necessary. -Continue with high intensity statin as well as gemfibrozil. We will continue to monitor her on telemetry. -She did have a episode of hypotension and her beta-blockers were held as well as Lasix. However her blood pressure has been in the normotensive range and perhaps mildly elevated at this point. Per cardiology we have added a small dose of 6.25 mg of carvedilol. We will DC her nifedipine and and Imdur 30 mg p.o. daily. -We we will order for PT OT for debility -Cardiology on consultationappreciate their recommendations and further input Hyperglycemia likely secondary to sepsis/stress -Patient had an episode of hyperglycemia with blood sugar over seven hundreds and was started on insulin drip however this morning her blood sugar did dip to the sixties and insulin drip was held this morning and DC'd. -Will order for sliding scale with FSBS every 6 hours plus hypoglycemic protocol. -Continue with her consistent carb diet Cardiogenic pulmonary edema -Patient had an episode of hypotension which is suspected due to cardiogenic shock however patient did not require any pressors and was able to be hemodynamically stable status post 2 L of HD per nephrology. -We will add Imdur 30 mg p.o. daily. We will stop her nifedipine. Will start on low-dose carvedilol. -Patient oxygen requirements continue to improve currently satting above 2% on 6 L nasal cannula. No acute respiratory distress. -Recent echo results performed which shows mild decline in LVEF 45% to 50% with lateral wall motion abnormalities, with moderate mitral insufficiency and left lateral wall motion hypokinesis. -Nephrology continues to follow on consultappreciate their recommendations and further input. She is due for hemodialysis today -[employer] on consultation and following appreciate their further recommendations and input Hx of hypertension -Blood pressure has been in normotensive range, perhaps more mildly hypertensive today. We will stop her nifedipine and add a low-dose of 6.25 mg p.o. carvedilol. And add Imdur 30 mg p.o. daily. Recent Right hallux amputation -[place] Manager Dr. Ewing -Wound appears clean with good granulation tissue. Has been cleaned and rewrapped this morning. ESRD on HD MWF -Patient received hemodialysis yesterday with 2 L fluid removal. -Nephrology is on consultation appreciate their recommendations and further input -We will continue to monitor her electrolytes closely and replete as necessary Anemia likely due to chronic disease/ESRD -Per nephrology CVA x2 /PVD -No focal neurological deficit -Continue on ASA & statin History of seizure disorder -Continue with Keppra History of gout -Continue with allopurinol GI px -PPI DVT Px with Heparin gtt CODE STATUS: full Disposition: Pending clinical improvement VS, I&O, 24H, Fishbone Vital Signs/I&O Vital Signs Date Time Temp Pulse Resp B/P (MAP) Pulse Ox O2 Delivery O2 Flow Rate FiO2 07/02/21 08:06 98 182/84 07/02/21 08:00 97.4 18 98 High Flow Cannula 6.0 07/01/21 08:00 65 I&O- Last 24 Hours up to 6 AM 07/02/21 06:00 Intake Total 1130 ml Output Total 0 ml Balance 1130 ml Laboratory Data 24H LABS Laboratory Tests 2 07/01/21 09:10: Troponin I 2.15*H, Random Vancomycin Level 15.1 07/01/21 11:41: Bedside Glucose (Misc Panel) 93 07/01/21 12:18: Methicillin-Resist S.aureus DNA PCR NOT DETECTED 07/01/21 12:47: Activated Partial Thromboplast Time 52.6H 07/01/21 17:29: Bedside Glucose (Misc Panel) 47L 07/01/21 17:48: Bedside Glucose (Misc Panel) 69L 07/01/21 18:09: Bedside Glucose (Misc Panel) 89 07/01/21 20:09: Activated Partial Thromboplast Time 61.7H 07/01/21 23:25: Bedside Glucose (Misc Panel) 166H 07/02/21 04:11: Nucleated Red Blood Cells % (auto) 0.0, Prothrombin Time 14.4H, Prothromb Time International Ratio 1.07, Activated Partial Thromboplast Time 78.0H, Anion Gap 9, Glomerular Filtration Rate 17.2L, Calcium Level 8.4L, Total Bilirubin 0.2, Aspartate Amino Transf (AST/SGOT) 20, Alanine Aminotransferase (ALT/SGPT) 19, Alkaline Phosphatase 107, Total Protein 6.6, Albumin 1.7L, Albumin/Globulin Ratio 0.3L 07/02/21 05:31: Bedside Glucose (Misc Panel) 162H CBC/BMP Laboratory Tests 07/01/21 11:00 07/02/21 04:11 Microbiology Microbiology 07/01/21 Stool Occult Blood (TEMITOPE) - Final, Complete 06/30/21 Stool Occult Blood (TEMITOPE) - Final, Complete 06/29/21 Blood Culture - Preliminary, Resulted No Growth after 48 hours. All Specime... 06/29/21 Respiratory Virus Panel (PCR) (TEMITOPE) - Final, Complete 06/29/21 Blood Culture - Preliminary, Resulted No Growth after 48 hours. All Specime... GME ATTESTATION GME ATTESTATION My faculty preceptor for this patient encounter was physically present during the encounter and was fully available. All aspects of the patient interview, examination, medical decision making process, and medical care plan development were reviewed and approved by the faculty preceptor. The faculty preceptor is aware and concurs with the plan as stated in the body of this note and will attest to such by his/her cosignature. ATTENDING NOTE I, Lucius Berman MD, have independently examined this patient and performed my own physical exam, as well as reviewed the documentation and edited where necessary. I have discussed in detail with the resident / student the findings and plan of treatment as documented by the resident / student and edited their note. I agree with their findings and treatment plan and have edited their documentation. Alma Larsen DO Jul 02, 2021 09:14 LUCIUS BERMAN MD Jul 05, 2021 12:53
[2021-07-02] MEDS: cefTRIAXone SOD 1 GM in D5W MINI-BAG PLUS 50 ML IV SCH (11:50)
[2021-07-02] MEDS: ISOSORBIDE MON. (IMDUR) 30 MG XR TAB PO SCH (11:51)
[2021-07-02] MEDS: ACETAMINOPHEN TAB 650MG DOSE (2X325MG) PO PRN (16:24)
--- NOTE | 2021-07-02 17:52 | IPNPDOC ---
Subjective CC/HPI The patient is a 61-year-old female admitted with a reason for visit of Nstemi, Pneumonia, Sepsis. Events since last encounter Pt was seen and examined at bedside. she is feeling good. She is still wearing NC. Hb dropped today and she will get PRBC with HD today. General: Denies: Chills, Night Sweats Constitutional: Denies: Chills, Fever, Malaise Eyes: Denies: Pain, Vision change ENT: Denies: Head Aches, Ear Pain Skin: Reports: Lesions, Breakdown (Foot wounds); Denies: Rash Pulmonary: Reports: Dyspnea (improving); Denies: Cough Cardiovascular: Denies: Chest Pain, Palpitations Gastrointestinal: Denies: Nausea, Vomiting Genitourinary: Denies: Dysuria, Frequency Hematologic: Denies: Bruising Musculoskeletal: Denies: Neck Pain, Back Pain Neurological: Reports: Weakness; Denies: Numbness Psych: Reports: Mood Normal Objective Physical Examination General Exam: Alert; No: No Acute Distress EYE EXAM: PERRLA, Conjunctiva & lids normal, EOMI ENT EXAM: Atraumatic, Mucous membr. moist/pink Neck Exam: Supple; No: JVD Chest Exam: Clear to auscultation; No: Rales Heart Exam: Rate Normal; No: Murmurs, Rubs ABDOMEN EXAM: Normal bowel sounds, Soft; No: Tenderness Female Exam: Nl Ext Genitalia Extremity Exam: Other (Rt foot dressing and Lt heel dressing.); No: Clubbing, Edema Neuro Exam: Normal Speech, Strength at 5/5 X4 ext Psych Exam: Mental status NL, Mood NL Vital Signs/I&O Vital Signs Date Time Temp Pulse Resp B/P (MAP) Pulse Ox O2 Delivery O2 Flow Rate FiO2 07/02/21 16:00 99 Nasal Cannula 6.0 07/02/21 16:00 96.6 90 18 150/70 (96) 07/01/21 08:00 65 I&O- Last 24 Hours up to 6 AM 07/02/21 06:00 Intake Total 1130 ml Output Total 0 ml Balance 1130 ml Laboratory Data Labs 24H Laboratory Tests 2 07/01/21 18:09: Bedside Glucose (Misc Panel) 89 07/01/21 20:09: Activated Partial Thromboplast Time 61.7H 07/01/21 23:25: Bedside Glucose (Misc Panel) 166H 07/02/21 04:11: Activated Partial Thromboplast Time 78.0H, Nucleated Red Blood Cells % (auto) 0.0, Prothrombin Time 14.4H, Prothromb Time International Ratio 1.07, Anion Gap 9, Glomerular Filtration Rate 17.2L, Calcium Level 8.4L, Total Bilirubin 0.2, Aspartate Amino Transf (AST/SGOT) 20, Alanine Aminotransferase (ALT/SGPT) 19, Alkaline Phosphatase 107, Troponin I 2.36*H, Total Protein 6.6, Albumin 1.7L, Albumin/Globulin Ratio 0.3L 07/02/21 05:31: Bedside Glucose (Misc Panel) 162H 07/02/21 09:55: Activated Partial Thromboplast Time 82.6H 07/02/21 11:39: Bedside Glucose (Misc Panel) 161H 07/02/21 16:59: Bedside Glucose (Misc Panel) 109 CBC/BMP Laboratory Tests 07/02/21 04:11 FSBS Laboratory Tests Test 07/01/21 18:09 07/01/21 23:25 07/02/21 05:31 07/02/21 11:39 Range/Units Bedside Glucose (Misc Panel) 89 166 162 161 80-115 MG/DL Test 07/02/21 16:59 Range/Units Bedside Glucose (Misc Panel) 109 80-115 MG/DL Current Medications Current Medications Medications (Trade) Dose Ordered Sig/Mir Route PRN Reason Start Time Stop Time Status Last Admin Dose Admin Acetaminophen (Tylenol Tab) 650 mg Q4H PRN PO MILD PAIN or TEMP > 101 06/30/21 05:50 07/02/21 16:24 Al Hydrox/Mg Hydrox/Simethicone (Mylanta) 30 ml DAILY PRN PO DYSPEPSIA 06/30/21 05:50 Albuterol/ Ipratropium (Duoneb (Ipr 0.5mg/Alb 2.5mg)) 3 ml Q20M PRN NEB SHORTNESS OF BREATH 06/29/21 21:35 06/29/21 21:56 DC 06/29/21 21:56 Allopurinol (Zyloprim) 100 mg DAILY PO 06/30/21 09:00 07/02/21 08:07 Aspirin (Aspirin Chewable) 81 mg DAILY PO 06/30/21 09:00 07/02/21 08:06 Atorvastatin Calcium (Lipitor) 80 mg DAILY PO 06/30/21 09:00 07/02/21 08:07 Calcitriol (Rocaltrol) 0.25 mcg MoFr@0900 PO 07/01/21 09:00 07/01/21 08:15 Carvedilol (COReg) 6.25 mg BID PO 07/02/21 09:00 07/02/21 08:06 Ceftriaxone Sodium 1 gm/ Dextrose 50 ml @ 100 mls/hr Q24H IV 07/02/21 13:00 07/02/21 11:50 Clopidogrel Bisulfate (PLAVix) 75 mg DAILY PO 06/30/21 09:00 07/02/21 08:07 Darbepoetin [place] (Aranesp (Dialysis Use)) 200 mcg HD IV 07/01/21 01:10 07/02/21 14:39 Dextrose (Dextrose 50%) 25 ml ASDIRECTED PRN IV SEE LABEL COMMENTS 06/30/21 07:30 07/01/21 01:30 Dextrose (Dextrose 50%) 25 ml ASDIRECTED PRN IV SEE LABEL COMMENTS 07/01/21 17:40 07/01/21 17:40 DC Furosemide (Lasix) 80 mg DAILY PO 06/30/21 09:00 Cancel Gabapentin (Neurontin) 300 mg QHS PO 06/30/21 21:00 07/01/21 20:19 Glucagon (Glucagon) 1 mg ASDIRECTED PRN SC SEE LABEL COMMENTS 06/30/21 07:30 Glucagon (Glucagon) 1 mg ASDIRECTED PRN SC SEE LABEL COMMENTS 07/01/21 17:40 07/01/21 17:41 DC Glucose (Glucose) 16 GM ASDIRECTED PRN PO SEE LABEL COMMENTS 06/30/21 07:30 Glucose (Glucose) 16 GM ASDIRECTED PRN PO SEE LABEL COMMENTS 07/01/21 17:40 07/01/21 17:41 DC Heparin Sodium (Heparin) Please refer to ... ASDIRECTED XX 06/30/21 10:55 07/01/21 10:54 DC Heparin Sodium (Heparin) Please refer to ... ASDIRECTED XX 07/02/21 06:00 07/03/21 05:59 Heparin Sodium (Heparin) dose as per volume indica... ASDIRECTED PRN IV SEE LABEL COMMENTS 06/30/21 10:55 07/01/21 10:54 DC Heparin Sodium (Heparin) dose as per volume indica... ASDIRECTED PRN IV SEE LABEL COMMENTS 07/02/21 06:00 07/02/21 23:04 Heparin Sodium (Porcine) (Heparin) ASDIRECTED PRN IV SEE LABEL COMMENTS 06/30/21 05:50 07/01/21 21:26 Heparin Sodium (Porcine) 64741 units/IV Miscellaneous Supplies 250 ml @ 8.16 mls/hr DRIP IV 06/30/21 07:05 07/02/21 10:01 Heparin Sodium (Porcine) 67503 units/IV Miscellaneous Supplies 250 ml @ 8.16 mls/hr Q24H IV 06/30/21 01:10 06/30/21 06:05 DC 06/30/21 01:41 Home Med (Home Med List Complete!) ASDIRECTED XX 06/30/21 07:35 06/30/21 07:37 DC Insulin Detemir (Levemir Insulin) 15 units BID SC 06/30/21 09:00 06/30/21 14:13 DC 06/30/21 12:11 Insulin Human Lispro (HumaLOG INSULIN) SEE PROTOCOL TABLE Q6H SC 07/01/21 18:00 07/02/21 17:21 Insulin Human Lispro (HumaLOG INSULIN) See Protocol Table AC WA 06/30/21 07:30 06/30/21 14:13 DC Insulin Human Lispro (HumaLOG INSULIN) See Protocol Table QHS SC 06/30/21 21:00 06/30/21 14:13 DC Insulin Human Regular 100 unit/ IV Miscellaneous Supplies 100 ml @ 0 mls/hr Q0M IV 06/30/21 14:15 Cancel Insulin Human Regular 100 unit/ IV Miscellaneous Supplies 100 ml @ 0 mls/hr Q0M IV 06/30/21 14:40 07/01/21 01:58 DC 06/30/21 15:19 Isosorbide Mononitrate (Imdur) 30 mg DAILY PO 07/02/21 09:00 07/02/21 11:51 Levetiracetam (Keppra) 500 mg BID PO 06/30/21 09:00 07/02/21 08:06 Magnesium Hydroxide (Milk Of Magnesia) 30 ml DAILY PRN PO CONSTIPATION 06/30/21 05:50 Metoprolol Tartrate (Lopressor) 75 mg BID PO 06/30/21 09:00 Cancel Nifedipine (Procardia Xl) 90 mg QAM PO 06/30/21 09:00 Cancel Nitroglycerin (Nitrostat (1/ 150)) 0.4 mg Q5MP PRN SL ANGINA 06/30/21 05:50 Non-Formulary Medication ( See Comment Field Below ) [facility]. DOSING ASDIRECTED XX 06/30/21 09:00 07/01/21 14:13 DC Non-Formulary Medication (Heparin Iv Rate Change Documentation ml/ Hr) ASDIRECTED XX 06/30/21 05:50 07/05/21 05:49 07/01/21 14:12 Non-Formulary Medication (Insulin Iv Rate Change Documentation ml/ Hr) ASDIRECTED XX 06/30/21 14:15 07/30/21 14:14 Cancel Non-Formulary Medication (Insulin Iv Rate Change Documentation ml/ Hr) ASDIRECTED XX 06/30/21 14:40 07/01/21 01:58 DC 06/30/21 21:54 Norepinephrine Bitartrate 8 mg/ Dextrose 508 ml @ 15.24 mls/ hr Q24H IV 06/30/21 12:10 06/30/21 12:19 DC Norepinephrine Bitartrate 8 mg/ Dextrose 508 ml @ 15.24 mls/ hr Q24H IV 06/30/21 12:19 06/30/21 12:20 DC Norepinephrine Bitartrate 8 mg/ Dextrose 508 ml @ 15.24 mls/ hr Q24H IV 06/30/21 12:25 07/01/21 07:59 DC Piperacillin Sod/ Tazobactam Sod 2.25 gm/Dextrose 50 ml @ 50 mls/hr Q6H IV 06/30/21 08:00 07/02/21 11:09 DC 07/02/21 08:07 Simvastatin (Zocor) 20 mg QPM PO 06/30/21 21:00 06/30/21 07:56 DC Vancomycin HCl 500 mg/Dextrose 110 ml @ 110 mls/hr Q12H IV 06/30/21 07:35 06/30/21 08:53 DC Vitamin D (Vitamin D) 1,000 units DAILY PO 06/30/21 09:00 07/02/21 08:07 Allergies Coded Allergies: No Known Allergies (Unverified , 06/29/21) Assessment/Plan Date Seen The patient was seen on 07/02/21 in AM. Plan / VTE VTE Prophylaxis Ordered?: Yes Plan Orders past 48 Hours Orders Fingerstick Blood Sugar (06/30/21 16:11) Fingerstick Blood Sugar (06/30/21 17:14) Partial Thromboplastin Time (07/01/21 06:00) * Nursing Order * (06/30/21 19:17) Fingerstick Blood Sugar (06/30/21 19:34) Cardiac Risk Profile (07/01/21 06:00) Troponin (07/01/21 06:00) Resp Order Cpoe (06/30/21 ) Fingerstick Blood Sugar (06/30/21 20:42) Fingerstick Blood Sugar (06/30/21 21:41) Fingerstick Blood Sugar (06/30/21 23:44) Fingerstick Blood Sugar (07/01/21 00:52) Occult Blood Stool Specimen (07/01/21 00:57) Darbepoetin (Aranesp (Dialysis Use)) (07/01/21 01:10) Fingerstick Blood Sugar (07/01/21 01:23) Fingerstick Blood Sugar (07/01/21 01:25) Fingerstick Blood Sugar (07/01/21 01:46) Fingerstick Blood Sugar (07/01/21 02:06) Fingerstick Blood Sugar (07/01/21 04:04) Fingerstick Blood Sugar (07/01/21 06:12) Fingerstick Blood Sugar (07/01/21 06:53) Consistent Carbohydrates (07/01/21 Breakfast) Partial Thromboplastin Time (07/01/21 13:00) Transfer (In House) (07/01/21 07:55) Potassium Chloride (Micro-K Extencaps) (07/01/21 08:00) Hemoglobin & Hematocrit (07/01/21 11:00) Troponin (07/01/21 08:17) Fsbs Q6h (Fingerstick) Q6H (07/01/21 08:31) Vancomycin Random (07/01/21 09:10) Occult Blood Stool Specimen (07/01/21 11:15) Fingerstick Blood Sugar (07/01/21 11:41) Mrsa Pcr Screen (07/01/21 05:49) Partial Thromboplastin Time (07/01/21 20:00) Fsbs Q6h (Fingerstick) Q6 (07/01/21 17:36) Hypoglycemic Protocol (07/01/21 17:36) Insulin Lispro (Humalog Insulin) (07/01/21 18:00) D50w (Dextrose 50%) (07/01/21 17:40) Glucose (Glucose) (07/01/21 17:40) Glucagon (Glucagon) (07/01/21 17:40) Electrocardiogram Adult (07/02/21 05:00) Fingerstick Blood Sugar (07/01/21 17:29) Fingerstick Blood Sugar (07/01/21 17:48) Fingerstick Blood Sugar (07/01/21 18:09) Transfuse Packed Cells (07/02/21 08:00) Packed Cells (07/02/21 06:00) Type & Screen (07/02/21 06:00) Pt & Aptt (07/02/21 03:30) Hemodialysis Acute Orders (07/02/21 06:00) Heparin (Heparin) (07/02/21 06:00) Heparin (Heparin) (07/02/21 06:00) Fingerstick Blood Sugar (07/01/21 23:25) Partial Thromboplastin Time (07/02/21 10:00) Fingerstick Blood Sugar (07/02/21 05:31) Carvedilol (Coreg) (07/02/21 09:00) Troponin (07/02/21 04:11) Partial Thromboplastin Time (07/03/21 06:00) Ceftriaxone Sod (Rocephin) (07/02/21 13:00) Pt Eval & Tx As Needed (07/02/21 11:12) Ot Eval & Treat As Needed (07/02/21 11:12) Isosorbide Mononitrate Xr (Imdur) (07/02/21 09:00) Fingerstick Blood Sugar (07/02/21 11:39) Fingerstick Blood Sugar (06/30/21 12:39) Fingerstick Blood Sugar (06/30/21 12:50) Troponin (07/03/21 05:00) Electrocardiogram Adult (07/03/21 05:00) Fingerstick Blood Sugar (07/02/21 16:59) Plan Text 1.ESRD on HD: MWF schedule but inpatient she is TTS. HD to be done today with UF goal~2Kg. 2. Decompensated CHF: Improving. fluid removal as per #1. 3.HCAP: Empiric abx coverage. 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 Abx would cover foot infection as well 5.Anemia in ESRd: Dede as per protocol. 6.NSTEMI: Management as per cardiology. Remove fluid to decrease the demand ischemia and overload.Heparin drip ongoing. ARTURO ENAMORADO MD Jul 02, 2021 17:52
[2021-07-02] MEDS: GABAPENTIN 300 MG CAP PO SCH (20:38)
--- NOTE | 2021-07-02 21:18 | ECGEPIP ---
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
[2021-07-03] VITALS (13 sets, daily range): BP systolic 132–172; BP diastolic 58–98; O2SAT 94–100
[2021-07-03] MEDS: HEPARIN DRIP 25,000 UNITS in IV 1 EA IV SCH (05:03)
[2021-07-03] MEDS: HumaLOG INSULIN (NovoLOG) PER UNIT SC SCH ×3 (05:38→17:19)
[2021-07-03 05:45] LABS: HEMATOCRIT 32.9 % (36.0-47.0); MEAN CORPUSCULAR HEMOGLOBIN 24.2 pg (27.0-33.0); MEAN CORPUSCULAR HGB CONC 30.7 g/dl (32.0-36.5); MEAN CORPUSCULAR VOLUME 78.7 fl (80.0-96.0); PLATELET COUNT, AUTOMATED 555 10^3/uL (150-450); RED BLOOD COUNT 4.18 10^6/uL (4.00-5.40); WHITE BLOOD COUNT 15.1 10^3/uL (4.0-10.0)
[2021-07-03 05:49] LABS: HEMOGLOBIN 10.1 g/dl (12.0-15.5)
[2021-07-03 06:06] LABS: ALBUMIN 1.8 GM/DL (3.2-5.2); BILIRUBIN,TOTAL 0.3 MG/DL (0.2-1.0); CALCIUM LEVEL 8.7 MG/DL (8.8-10.2); CREATININE FOR GFR 1.96 MG/DL (0.55-1.30); GLOMERULAR FILTRATION RATE 27.5 (>45); POTASSIUM SERUM 3.8 MEQ/L (3.5-5.1); TOTAL PROTEIN 6.6 GM/DL (6.4-8.2); TROPONIN I 1.97 NG/ML (< 0.10)
[2021-07-03] MEDS: HEPARIN SOD (PORCINE) 5000UNITS/ML 1ML VIAL/SYRINGE IV PRN (06:12)
[2021-07-03] MEDS: levETIRAcetam 250MG TABLET (KEPPRA) PO SCH ×2 (08:52→20:25)
[2021-07-03] MEDS: ATORVASTATIN 20 MG TAB PO SCH (08:52)
[2021-07-03] MEDS: ASPIRIN 81 MG CHEW TABLET PO SCH (08:52)
[2021-07-03] MEDS: allopurinoL 100 MG TAB PO SCH (08:53)
[2021-07-03] MEDS: CLOPIDOGREL 75 MG TAB PO SCH (08:53)
[2021-07-03] MEDS: VITAMIN D 1,000 INTERNATIONAL UNITS TABLET PO SCH (08:53)
[2021-07-03] MEDS: CARVedilol 6.25 MG TAB PO SCH ×2 (08:53→20:26)
[2021-07-03] MEDS: ISOSORBIDE MON. (IMDUR) 30 MG XR TAB PO SCH (08:53)
--- NOTE | 2021-07-03 13:37 | IPNPDOC ---
Subjective Date Seen The patient was seen on 07/03/21. Subjective Chief Complaint/HPI SUBJECTIVE: Patient was seen at bedside this morning. Patient states that she did not have any acute events overnight. she denies any chest pain, nausea, vomiting, abdominal pain or vision changes (blurry vision double vision), fever, shaking chills. She also reports that her coughing has also improved. OBJECTIVE: Vital signs: See below GENERAL: The patient is a well-developed, well-nourished in no apparent distress. AAOx3 NEURO: No focal neurological deficits HEENT: Head is normocephalic and atraumatic. Extraocular muscles are intact. Pupils are equal, round, and reactive to light and accommodation. Nares appears normal. Moist mucous membranes. Patient has a IJ on the left and permacath on the right. Lines do not look affected. there is no erythema or pus around the sites. PULM: Clear to auscultation bilaterally. No wheezing, rhonchi or rales appreciated. CARDIO: Normal S1, S2. no significant murmurs, gallops, rubs or clicks. No signs of peripheral edema ABDOMEN: Soft, nontender, and nondistended. Normal bowel sounds. No significant organomegaly appreciated. EXTREMITIES: No clubbing, rash, lesions. Right foot is dressed in bandages and there is no pus or blood seen through the bandages. IMAGING: No new imaging LABORATORY DATA: See below ASSESSMENT AND PLAN: This is a 61 yr old w a hx of ESRD, IDDM, Essential HTN, CVA x2, PVD, & recent Right hallux amputation who is admitted for sepsis, HCAP and NSTEMI. Acute hypoxic respiratory failure likely multifactorial secondary to HCAP, pulmonary edema from NSTEMI, CHF -Patient continues to have improvement in her respiratory status and was saturating above 90% on 6 L nasal cannula. We will attempt to decrease on her O2 to titrate her SPO2 above 94%. -Per [facility] (Dr. Stroud/feeder loader) the goal is to have patient FIO2 down to 40%. Currently her O2 requirements currently meet the goal for a transfer however there is no bed currently at [facility]. Patient currently is hemodynamically stable we will continue to monitor her in-house with telemetry. -Status post hemodialysis with 2 L of fluid removal Sepsis likely 2/2 to Healthcare associated pneumonia, r/o osteomyelitis RLE -LA now wnl. - Blood cultures have been negative. -XR right foot: Underlying osteomyelitis cannot be excluded however the wound looks clean without any pus or signs of infection. -Patient was initially covered on broad-spectrum antibiotics and was able to be stepped down to IV Rocephin. NSTEMI -Trop initially peaked to 3.04 and patient also had an acute cardiogenic pulmonary edema and cardiogenic shock secondary to acute decompensated heart failure with preserved ejection fraction. multiple facilities with angiography capabilities have been called however no beds were available. -Her troponins have trended downwards and leveled out with troponin this morning at as low as its been since her hospitalization (1.97) Patient denies of any chest pain overnight -Echocardiogram from 2 days ago shows ejection fraction 4045 percent, lateral wall motion abnormalities, with moderate mitral insufficiency and left lateral wall motion hypokinesis. -Cardiology on consultation and have discussed over the phone that patient is to continue on aspirin and Plavix and continue on heparin drip for total of 72 hours. We will continue her heparin drip today and started on DVT prophylaxis with heparin subcu. Also discussed with cardiology who does agree with this plan is that patient will need follow up outpatient patient for a cardiac stress test and angiography as necessary. -Continue with high intensity statin as well as gemfibrozil. We will continue to monitor her on telemetry and continue with 6.25 mg of carvedilol and Imdur 30 mg p.o. daily for blood pressure control and decrease further cardiac demand. s/p cardiogenic shock secondary to acute decompensated heart failure with preserved ejection fraction -Patient status post hemodialysis per nephrology. She did not require any pressors. Her blood pressure for the past couple of days have been in the normotensive range and perhaps elevated noted yesterday and was started back on a small dose of 6.25 mg of carvedilol. Her nifedipine was DC'd and we added Imdur 30 mg p.o. daily. -Recent echo results performed which shows mild decline in LVEF 45% to 50% with lateral wall motion abnormalities, with moderate mitral insufficiency and left lateral wall motion hypokinesis. -Oxygen requirements continue to improve we will start titrating down on her oxygen to titrate her SPO2 above 94%. -We we will order for PT OT for debility/deconditioning -Can Crimper on consultation appreciate further recommendations and input Hyperglycemia likely secondary to sepsis/stress -Patient had an episode of hyperglycemia with blood sugar over seven hundreds and was started on insulin drip however this morning her blood sugar did dip to the sixties and insulin drip was held this morning and DC'd. -Will order for sliding scale with FSBS every 6 hours plus hypoglycemic protocol. -Continue with her consistent carb diet Hx of hypertension -Blood pressure has been in normotensive range, perhaps more mildly hypertensive today. We will stop her nifedipine and add a low-dose of 6.25 mg p.o. carvedilol. And add Imdur 30 mg p.o. daily. Recent Right hallux amputation -Custodian Dr. Ewing -Wound appears clean with good granulation tissue. Has been cleaned and rewrapped this morning. ESRD on HD MWF -Patient received hemodialysis yesterday with 2 L fluid removal. -Nephrology is on consultation appreciate their recommendations and further input -We will continue to monitor her electrolytes closely and replete as necessary Anemia likely due to chronic disease/ESRD -Per nephrology CVA x2 /PVD -No focal neurological deficit -Continue on ASA & statin History of seizure disorder -Continue with Keppra History of gout -Continue with allopurinol GI px -PPI DVT Px with Heparin gtt CODE STATUS: full Disposition: Pending clinical improvement Objective Physical Examination General Exam: Positive: Alert, Cooperative, Other (Chronically ill-appearing.) Eye Exam: Negative: Sclera icteric ENT Exam: Positive: Atraumatic Neck Exam: Positive: Supple; Negative: JVD Chest Exam: Positive: Rales (Of the right lower lung field.), Other (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.) Heart Exam: Positive: Rate Normal, Normal S1, Normal S2, Murmurs Abdomen Exam: Positive: Normal bowel sounds, Soft; Negative: Tenderness Extremity Exam: Negative: Clubbing, Edema Skin Exam: Negative: Rash Neuro Exam: Positive: Normal Speech Assessment /Plan Plan/VTE VTE Prophylaxis Ordered?: Yes VS, I&O, 24H, Fishbone Vital Signs/I&O Vital Signs Date Time Temp Pulse Resp B/P (MAP) Pulse Ox O2 Delivery O2 Flow Rate FiO2 07/03/21 12:00 100 Nasal Cannula 2.0 07/03/21 12:00 97.3 83 18 140/58 (85) 07/01/21 08:00 65 I&O- Last 24 Hours up to 6 AM 07/03/21 06:00 Intake Total 800 ml Output Total 2002 ml Balance -1202 ml Laboratory Data 24H LABS Laboratory Tests 2 07/02/21 16:59: Bedside Glucose (Misc Panel) 109 07/02/21 23:27: Bedside Glucose (Misc Panel) 141H 07/03/21 04:49: Nucleated Red Blood Cells % (auto) 0.0, Anion Gap 10, Glomerular Filtration Rate 27.5L, Calcium Level 8.7L, Total Bilirubin 0.3, Aspartate Amino Transf (AST/SGOT) 13, Alanine Aminotransferase (ALT/SGPT) 17, Alkaline Phosphatase 103, Troponin I 1.97*H, Total Protein 6.6, Albumin 1.8L, Albumin/Globulin Ratio 0.4L 07/03/21 04:50: Activated Partial Thromboplast Time 62.7H 07/03/21 05:12: Bedside Glucose (Misc Panel) 107 07/03/21 11:54: Bedside Glucose (Misc Panel) 148H 07/03/21 11:56: Activated Partial Thromboplast Time 55.8H CBC/BMP Laboratory Tests 07/03/21 04:49 Microbiology Microbiology 07/01/21 Stool Occult Blood (TEMITOPE) - Final, Complete 06/30/21 Stool Occult Blood (TEMITOPE) - Final, Complete 06/29/21 Blood Culture - Preliminary, Resulted No Growth after 72 hours. All specime... 06/29/21 Respiratory Virus Panel (PCR) (TEMITOPE) - Final, Complete 06/29/21 Blood Culture - Preliminary, Resulted No Growth after 72 hours. All specime... GME ATTESTATION GME ATTESTATION My faculty preceptor for this patient encounter was physically present during the encounter and was fully available. All aspects of the patient interview, examination, medical decision making process, and medical care plan development were reviewed and approved by the faculty preceptor. The faculty preceptor is aware and concurs with the plan as stated in the body of this note and will attest to such by his/her cosignature. ATTENDING NOTE I, Lucius Berman MD, have independently examined this patient and performed my own physical exam, as well as reviewed the documentation and edited where necessary. I have discussed in detail with the resident / student the findings and plan of treatment as documented by the resident / student and edited their note. I agree with their findings and treatment plan and have edited their documentation. Alma Larsen DO Jul 03, 2021 13:18 LUCIUS BERMAN MD Jul 05, 2021 12:56
[2021-07-03] MEDS: cefTRIAXone SOD 1 GM in D5W MINI-BAG PLUS 50 ML IV SCH (13:40)
[2021-07-03] MEDS: HEPARIN SOD (PORCINE) 5000UNITS/ML 1ML VIAL/SYRINGE SQ SCH ×2 (13:40→20:27)
--- NOTE | 2021-07-03 15:01 | ECGEPIP ---
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
[2021-07-03] MEDS: GABAPENTIN 300 MG CAP PO SCH (20:25)
--- NOTE | 2021-07-03 20:54 | IPNPDOC ---
Subjective CC/HPI The patient is a 61-year-old female admitted with a reason for visit of Nstemi, Pneumonia, Sepsis. Events since last encounter Pt feels much better today. HD done yesterday with UF 2L. One unit PRBC given. Hb7.9-->10 today. She no longer has chest pain. Trop is trending down. she c/o Rt foot pain. General: Denies: Chills, Night Sweats Constitutional: Denies: Chills, Fever Eyes: Denies: Pain, Vision change ENT: Denies: Head Aches, Ear Pain Skin: Reports: Lesions, Breakdown (Both feet) Pulmonary: Denies: Dyspnea, Cough Cardiovascular: Denies: Chest Pain, Palpitations Gastrointestinal: Denies: Nausea, Vomiting Genitourinary: Denies: Dysuria, Frequency Hematologic: Denies: Bruising, Bleeding Excessively Musculoskeletal: Reports: Other Symptoms (Foot ulcers.); Denies: Neck Pain, Back Pain Neurological: Reports: Weakness Psych: Reports: Mood Normal Objective Physical Examination General Exam: Alert; No: No Acute Distress EYE EXAM: PERRLA, Conjunctiva & lids normal, EOMI ENT EXAM: Atraumatic, Mucous membr. moist/pink Neck Exam: Supple; No: JVD Chest Exam: Clear to auscultation; No: Rales Heart Exam: Rate Normal; No: Murmurs, Rubs ABDOMEN EXAM: Normal bowel sounds, Soft; No: Tenderness Female Exam: Nl Ext Genitalia Extremity Exam: Other (Rt foot dressing and Lt heel dressing.); No: Clubbing, Edema Neuro Exam: Normal Speech, Strength at 5/5 X4 ext Psych Exam: Mental status NL, Mood NL, Oriented x 3 Vital Signs/I&O Vital Signs Date Time Temp Pulse Resp B/P (MAP) Pulse Ox O2 Delivery O2 Flow Rate FiO2 07/03/21 16:00 95 Room Air 07/03/21 16:00 97.0 97 16 132/68 (89) 1.0 07/01/21 08:00 65 I&O- Last 24 Hours up to 6 AM 07/03/21 06:00 Intake Total 800 ml Output Total 2002 ml Balance -1202 ml Laboratory Data Labs 24H Laboratory Tests 2 07/02/21 23:27: Bedside Glucose (Misc Panel) 141H 07/03/21 04:49: Nucleated Red Blood Cells % (auto) 0.0, Anion Gap 10, Glomerular Filtration Rate 27.5L, Calcium Level 8.7L, Total Bilirubin 0.3, Aspartate Amino Transf (AST/SGOT) 13, Alanine Aminotransferase (ALT/SGPT) 17, Alkaline Phosphatase 103, Troponin I 1.97*H, Total Protein 6.6, Albumin 1.8L, Albumin/Globulin Ratio 0.4L 07/03/21 04:50: Activated Partial Thromboplast Time 62.7H 07/03/21 05:12: Bedside Glucose (Misc Panel) 107 07/03/21 11:54: Bedside Glucose (Misc Panel) 148H 07/03/21 11:56: Activated Partial Thromboplast Time 55.8H 07/03/21 17:13: Bedside Glucose (Misc Panel) 258H CBC/BMP Laboratory Tests 07/03/21 04:49 FSBS Laboratory Tests Test 07/02/21 23:27 07/03/21 05:12 07/03/21 11:54 07/03/21 17:13 Range/Units Bedside Glucose (Misc Panel) 141 107 148 258 80-115 MG/DL Current Medications Current Medications Medications (Trade) Dose Ordered Sig/Mir Route PRN Reason Start Time Stop Time Status Last Admin Dose Admin Acetaminophen (Tylenol Tab) 650 mg Q4H PRN PO MILD PAIN or TEMP > 101 06/30/21 05:50 07/02/21 16:24 Al Hydrox/Mg Hydrox/Simethicone (Mylanta) 30 ml DAILY PRN PO DYSPEPSIA 06/30/21 05:50 Albuterol/ Ipratropium (Duoneb (Ipr 0.5mg/Alb 2.5mg)) 3 ml Q20M PRN NEB SHORTNESS OF BREATH 06/29/21 21:35 06/29/21 21:56 DC 06/29/21 21:56 Allopurinol (Zyloprim) 100 mg DAILY PO 06/30/21 09:00 07/03/21 08:53 Aspirin (Aspirin Chewable) 81 mg DAILY PO 06/30/21 09:00 07/03/21 08:52 Atorvastatin Calcium (Lipitor) 80 mg DAILY PO 06/30/21 09:00 07/03/21 08:52 Calcitriol (Rocaltrol) 0.25 mcg MoFr@0900 PO 07/01/21 09:00 07/01/21 08:15 Carvedilol (COReg) 6.25 mg BID PO 07/02/21 09:00 07/03/21 20:26 Ceftriaxone Sodium 1 gm/ Dextrose 50 ml @ 100 mls/hr Q24H IV 07/02/21 13:00 07/03/21 13:40 Clopidogrel Bisulfate (PLAVix) 75 mg DAILY PO 06/30/21 09:00 07/03/21 08:53 Darbepoetin Roosevelt (Aranesp (Dialysis Use)) 200 mcg HD IV 07/01/21 01:10 07/02/21 14:39 Dextrose (Dextrose 50%) 25 ml ASDIRECTED PRN IV SEE LABEL COMMENTS 06/30/21 07:30 07/01/21 01:30 Dextrose (Dextrose 50%) 25 ml ASDIRECTED PRN IV SEE LABEL COMMENTS 07/01/21 17:40 07/01/21 17:40 DC Furosemide (Lasix) 80 mg DAILY PO 06/30/21 09:00 Cancel Gabapentin (Neurontin) 300 mg QHS PO 06/30/21 21:00 07/03/21 20:25 Glucagon (Glucagon) 1 mg ASDIRECTED PRN SC SEE LABEL COMMENTS 06/30/21 07:30 Glucagon (Glucagon) 1 mg ASDIRECTED PRN SC SEE LABEL COMMENTS 07/01/21 17:40 07/01/21 17:41 DC Glucose (Glucose) 16 GM ASDIRECTED PRN PO SEE LABEL COMMENTS 06/30/21 07:30 Glucose (Glucose) 16 GM ASDIRECTED PRN PO SEE LABEL COMMENTS 07/01/21 17:40 07/01/21 17:41 DC Heparin Sodium (Heparin) Please refer to ... ASDIRECTED XX 06/30/21 10:55 07/01/21 10:54 DC Heparin Sodium (Heparin) Please refer to ... ASDIRECTED XX 07/02/21 06:00 07/03/21 05:59 DC Heparin Sodium (Heparin) dose as per volume indica... ASDIRECTED PRN IV SEE LABEL COMMENTS 06/30/21 10:55 07/01/21 10:54 DC Heparin Sodium (Heparin) dose as per volume indica... ASDIRECTED PRN IV SEE LABEL COMMENTS 07/02/21 06:00 07/02/21 23:04 DC Heparin Sodium (Porcine) (Heparin) ASDIRECTED PRN IV SEE LABEL COMMENTS 06/30/21 05:50 07/03/21 10:13 DC 07/03/21 06:12 Heparin Sodium (Porcine) (Heparin) 5,000 units Q8H SQ 07/03/21 14:00 07/03/21 20:27 Heparin Sodium (Porcine) 53355 units/IV Miscellaneous Supplies 250 ml @ 8.16 mls/hr DRIP IV 06/30/21 07:05 07/03/21 09:57 DC 07/03/21 05:03 Heparin Sodium (Porcine) 27276 units/IV Miscellaneous Supplies 250 ml @ 8.16 mls/hr Q24H IV 06/30/21 01:10 06/30/21 06:05 DC 06/30/21 01:41 Home Med (Home Med List Complete!) ASDIRECTED XX 06/30/21 07:35 06/30/21 07:37 DC Insulin Detemir (Levemir Insulin) 15 units BID SC 06/30/21 09:00 06/30/21 14:13 DC 06/30/21 12:11 Insulin Human Lispro (HumaLOG INSULIN) SEE PROTOCOL TABLE Q6H SC 07/01/21 18:00 07/03/21 17:19 Insulin Human Lispro (HumaLOG INSULIN) See Protocol Table AC PR 06/30/21 07:30 06/30/21 14:13 DC Insulin Human Lispro (HumaLOG INSULIN) See Protocol Table QHS SC 06/30/21 21:00 06/30/21 14:13 DC Insulin Human Regular 100 unit/ IV Miscellaneous Supplies 100 ml @ 0 mls/hr Q0M IV 06/30/21 14:15 Cancel Insulin Human Regular 100 unit/ IV Miscellaneous Supplies 100 ml @ 0 mls/hr Q0M IV 06/30/21 14:40 07/01/21 01:58 DC 06/30/21 15:19 Isosorbide Mononitrate (Imdur) 30 mg DAILY PO 07/02/21 09:00 07/03/21 08:53 Levetiracetam (Keppra) 500 mg BID PO 06/30/21 09:00 07/03/21 20:25 Magnesium Hydroxide (Milk Of Magnesia) 30 ml DAILY PRN PO CONSTIPATION 06/30/21 05:50 Metoprolol Tartrate (Lopressor) 75 mg BID PO 06/30/21 09:00 Cancel Nifedipine (Procardia Xl) 90 mg QAM PO 06/30/21 09:00 Cancel Nitroglycerin (Nitrostat (1/ 150)) 0.4 mg Q5MP PRN SL ANGINA 06/30/21 05:50 Non-Formulary Medication ( See Comment Field Below ) [facility]. DOSING ASDIRECTED XX 06/30/21 09:00 07/01/21 14:13 DC Non-Formulary Medication (Heparin Iv Rate Change Documentation ml/ Hr) ASDIRECTED XX 06/30/21 05:50 07/03/21 10:13 DC 07/03/21 06:14 Non-Formulary Medication (Insulin Iv Rate Change Documentation ml/ Hr) ASDIRECTED XX 06/30/21 14:15 07/30/21 14:14 Cancel Non-Formulary Medication (Insulin Iv Rate Change Documentation ml/ Hr) ASDIRECTED XX 06/30/21 14:40 07/01/21 01:58 DC 06/30/21 21:54 Norepinephrine Bitartrate 8 mg/ Dextrose 508 ml @ 15.24 mls/ hr Q24H IV 06/30/21 12:10 06/30/21 12:19 DC Norepinephrine Bitartrate 8 mg/ Dextrose 508 ml @ 15.24 mls/ hr Q24H IV 06/30/21 12:19 06/30/21 12:20 DC Norepinephrine Bitartrate 8 mg/ Dextrose 508 ml @ 15.24 mls/ hr Q24H IV 06/30/21 12:25 07/01/21 07:59 DC Piperacillin Sod/ Tazobactam Sod 2.25 gm/Dextrose 50 ml @ 50 mls/hr Q6H IV 06/30/21 08:00 07/02/21 11:09 DC 07/02/21 08:07 Simvastatin (Zocor) 20 mg QPM PO 06/30/21 21:00 06/30/21 07:56 DC Vancomycin HCl 500 mg/Dextrose 110 ml @ 110 mls/hr Q12H IV 06/30/21 07:35 06/30/21 08:53 DC Vitamin D (Vitamin D) 1,000 units DAILY PO 06/30/21 09:00 07/03/21 08:53 Allergies Coded Allergies: No Known Allergies (Unverified , 06/29/21) Assessment/Plan Date Seen The patient was seen on 07/03/21 in AM at bedside. Plan / VTE VTE Prophylaxis Ordered?: Yes Plan Orders past 48 Hours Orders Transfuse Packed Cells (07/02/21 08:00) Packed Cells (07/02/21 06:00) Type & Screen (07/02/21 06:00) Pt & Aptt (07/02/21 03:30) Hemodialysis Acute Orders (07/02/21 06:00) Heparin (Heparin) (07/02/21 06:00) Heparin (Heparin) (07/02/21 06:00) Fingerstick Blood Sugar (07/01/21 23:25) Partial Thromboplastin Time (07/02/21 10:00) Fingerstick Blood Sugar (07/02/21 05:31) Carvedilol (Coreg) (07/02/21 09:00) Partial Thromboplastin Time (07/03/21 06:00) Ceftriaxone Sod (Rocephin) (07/02/21 13:00) Pt Eval & Tx As Needed (07/02/21 11:12) Ot Eval & Treat As Needed (07/02/21 11:12) Isosorbide Mononitrate Xr (Imdur) (07/02/21 09:00) Fingerstick Blood Sugar (07/02/21 11:39) Fingerstick Blood Sugar (06/30/21 12:39) Fingerstick Blood Sugar (06/30/21 12:50) Troponin (07/03/21 05:00) Electrocardiogram Adult (07/03/21 05:00) Fingerstick Blood Sugar (07/02/21 16:59) Complete Comphrensive Metaboli (07/03/21 05:00) Fingerstick Blood Sugar (07/02/21 23:27) Fingerstick Blood Sugar (07/03/21 05:12) Partial Thromboplastin Time (07/03/21 12:00) Activity As Tolerated (07/03/21 09:54) Heparin (Heparin) (07/03/21 14:00) Chlamydia Pneumoniae Trina (07/03/21 12:00) Fingerstick Blood Sugar (07/03/21 11:54) Fingerstick Blood Sugar (07/03/21 17:13) Plan Text 1.ESRD on HD: MWF schedule but inpatient she is TTS. Next HD tomorrow AM. 2. Decompensated CHF: Improved volume status. fluid removal again with HD in AM. 3.HCAP: Empiric abx coverage. 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 Abx would cover foot infection as well 5.Anemia in ESRd: Dede as per protocol. one unit PRBC given with HD yesterday. 6.NSTEMI: Trop trending down.Heparin drip stopped. ARTURO ENAMORADO MD Jul 03, 2021 20:54
[2021-07-04] VITALS: BP 164/68
[2021-07-04 04:00] VITALS: BP 142/66
[2021-07-04] MEDS: HEPARIN SOD (PORCINE) 5000UNITS/ML 1ML VIAL/SYRINGE SQ SCH ×2 (05:32→13:32)
[2021-07-04] MEDS: HumaLOG INSULIN (NovoLOG) PER UNIT SC SCH ×3 (05:33→13:32)
[2021-07-04 08:00] VITALS: BP 140/72
[2021-07-04 08:09] LABS: BASO # 0.1 10^3/uL (0.0-0.2); BASO % 0.8 % (0.0-1.0); EOS # 0.6 10^3/uL (0.0-0.5); EOS % 3.6 % (0.0-3.0); HEMATOCRIT 35.7 % (36.0-47.0); HEMOGLOBIN 10.8 g/dl (12.0-15.5); LYMPH # 3.4 10^3/uL (1.5-5.0); LYMPH % 21.3 % (24.0-44.0); MEAN CORPUSCULAR HEMOGLOBIN 24.1 pg (27.0-33.0); MEAN CORPUSCULAR HGB CONC 30.3 g/dl (32.0-36.5); MEAN CORPUSCULAR VOLUME 79.7 fl (80.0-96.0); MONO # 0.8 10^3/uL (0.0-0.8); MONO % 4.8 % (2.0-8.0); NEUTROPHILS # 10.6 10^3/uL (1.5-8.5); NEUTROPHILS % 67.1 % (36.0-66.0); PLATELET COUNT, AUTOMATED 620 10^3/uL (150-450); RED BLOOD COUNT 4.48 10^6/uL (4.00-5.40); WHITE BLOOD COUNT 15.8 10^3/uL (4.0-10.0)
[2021-07-04 08:25] LABS: CALCIUM LEVEL 8.9 MG/DL (8.8-10.2); CREATININE FOR GFR 2.43 MG/DL (0.55-1.30); GLOMERULAR FILTRATION RATE 21.5 (>45); POTASSIUM SERUM 4.1 MEQ/L (3.5-5.1)
[2021-07-04] MEDS: ASPIRIN 81 MG CHEW TABLET PO SCH (08:45)
[2021-07-04] MEDS: ATORVASTATIN 20 MG TAB PO SCH (08:45)
[2021-07-04] MEDS: CLOPIDOGREL 75 MG TAB PO SCH (08:45)
[2021-07-04] MEDS: levETIRAcetam 250MG TABLET (KEPPRA) PO SCH (08:45)
[2021-07-04 08:49] VITALS: BP 140/72
[2021-07-04] MEDS: allopurinoL 100 MG TAB PO SCH (08:49)
[2021-07-04] MEDS: VITAMIN D 1,000 INTERNATIONAL UNITS TABLET PO SCH (08:49)
[2021-07-04] MEDS: CARVedilol 6.25 MG TAB PO SCH (08:49)
[2021-07-04] MEDS: ISOSORBIDE MON. (IMDUR) 30 MG XR TAB PO SCH (08:49)
[2021-07-04] MEDS ORDERED: CLOP75TA2 PO (10:14)
[2021-07-04] MEDS ORDERED: ISOS1TAB35 PO (10:14)
[2021-07-04] MEDS ORDERED: CARV6.25 PO (10:14)
[2021-07-04] MEDS ORDERED: ATOR1TAB21 PO (10:14)
--- NOTE | 2021-07-04 11:19 | DS.PDOC ---
Discharge Summary General Date of Admission Jun 30, 2021 at 05:49 Date of Discharge 07/04/2021 Specialist/Consultants Involve: Eugenio Johnson MD Specialist/Consultants Involve Dr. Bob Maza (recovery analyst) Dr. Tessa Pedro (nephrology) Discharge Summary PROCEDURES PERFORMED DURING STAY: IJ catheter insertion 06/30 (and removal 07/04) Central line Hemodialysis 06/30/21, 07/02/21 and 07/04/21 (perma cath in place on arrival) ADMITTING DIAGNOSES: Sepsis Hypoxemia likely 2/2 PNA NSTEMI Recent right hallux amputation ESRD (via perma cath MWF) Microcytic anemia IDDM HTN CVA x2 /PVD Seizure disorder Gout DISCHARGE DIAGNOSES: S/P Sepsis Hypoxemia likely 2/2 PNA NSTEMI Recent right hallux amputation ESRD (via perma cath MWF) Microcytic anemia IDDM Resistant HTN CVA x2 /PVD Seizure disorder Gout COMPLICATIONS/CHIEF COMPLAINT: "Not feeling well" HISTORY OF PRESENT ILLNESS: is a 61 yr old F w reports not feeling well for a few min before EMS arrived at her house specifically she felt nauseous but denied vomiting; she has also had a runny nose, dry cough and fevers. She also denied having chest pain, abdominal pain, back pain, dyspnea, losing consciousness or missing dialysis. Per when EMS arrived at her house her O2 sats were in the 60s so the put her on a CPAP. Based on the initial work-up she was diagnosed with sepsis 2/2 PNA and NSTEM; she was started on abx for the PNA and triple therapy for NSTEMI. Despite calling 9 hospitals was unable to find a facility to accept the patient. She is on the waiting list at [facility]. discussed the case with who agreed that it is also reasonable to c/w triple therapy and refer her to an nut picker on an outpatient basis for elective cath. HOSPITAL COURSE: Acute hypoxic respiratory failure likely multifactorial secondary to HCAP, pulmonary edema from NSTEMI, CHF -Initially required Vapotherm -Patient continues to have improvement in her respiratory status and was saturating above 90% on 6 L nasal cannula. We will attempt to decrease on her O2 to titrate her SPO2 above 94%. -Per [facility] (Dr. Stroud/recovery analyst) the goal is to have patient FIO2 down to 40%. Currently her O2 requirements currently meet the goal for a transfer however there is no bed currently at [facility]. Patient currently is hemodynamically stable we will continue to monitor her in-house with telemetry. -Status post hemodialysis with 2 L of fluid removal Sepsis likely 2/2 to Healthcare associated pneumonia, r/o osteomyelitis RLE -Patient is status post Vanco and Zosyn (renally adjusted) and transition to IV Rocephin. -LA now wnl. - Blood cultures have been negative. -XR right foot: Underlying osteomyelitis cannot be excluded however the wound looks clean without any pus or signs of infection. NSTEMI -Trop initially peaked to 3.04 and patient also had an acute cardiogenic pulmonary edema and cardiogenic shock secondary to acute decompensated heart failure with preserved ejection fraction. multiple facilities with angiography capabilities have been called however no beds were available. -Her troponins have leveled out and then trended downwards. On discharge her troponin 1.27. patient denies of any chest pain overnight -Echocardiogram from this hospital stay shows ejection fraction 4045 percent, lateral wall motion abnormalities, with moderate mitral insufficiency and left lateral wall motion hypokinesis. -Cardiology on consultation and have discussed over the phone that patient is to continue on aspirin and Plavix upon hospital discharge she is status post heparin drip for total of 72 hours. Started on DVT prophylaxis thereafter. Also discussed with cardiology who does agree with this plan is that patient will need follow up outpatient patient for a cardiac stress test and angiography as necessary. -Also upon discharge she was instructed to be compliant with her new medications which include: atorvastatin 80 mg p.o. daily, carvedilol 6.25 mg p.o. twice daily, Plavix 75 mg p.o. daily and Imdur 30 mg p.o. daily. Upon discharge her metoprolol 75 mg p.o. twice daily as well as nifedipine 90 mg p.o. every morning will be DC'd. Patient was also instructed to follow-up with PCP as well as cardiology within 7 days of hospital discharge. s/p cardiogenic shock secondary to acute decompensated heart failure with preserved ejection fraction -Patient status post hemodialysis per nephrology. She did not require any pressors. Her blood pressure for the past couple of days have been in the normotensive range and perhaps elevated noted yesterday and was started back on a small dose of 6.25 mg of carvedilol. Her nifedipine was DC'd and we added Imdur 30 mg p.o. daily. -Recent echo results performed which shows mild decline in LVEF 45% to 50% with lateral wall motion abnormalities, with moderate mitral insufficiency and left lateral wall motion hypokinesis. -Oxygen requirements continue to improve we will start titrating down on her oxygen to titrate her SPO2 above 94%. -We we will order for PT OT for debility/deconditioning -Hybrid Technologist on consultation appreciate further recommendations and input Hyperglycemia likely secondary to sepsis/stress -Patient had an episode of hyperglycemia with blood sugar over seven hundreds and was started on insulin drip however this morning her blood sugar did dip to the sixties and insulin drip was held this morning and DC'd. -We will DC sliding scale with FSBS every 6 hours plus hypoglycemic protocol -Continue with home medications glipizide and insulin -Follow-up with PCP for optimal blood sugar control -Continue with her consistent carb diet Hx of hypertension -Blood pressure has been in normotensive range, perhaps more mildly hypertensive today. We will stop her nifedipine and metoprolol on hospital discharge. Start on 6.25 mg p.o. carvedilol and Imdur 30 mg p.o. daily. -Follow-up PCP within 7 days of hospital discharge for optimal management of blood pressure. Recent Right hallux amputation -Agriculture Scientist Dr. Ewing -Patient follows with Dr. Purdy (wound) will need to follow-up with him upon hospital discharge -Wound appears clean with good granulation tissue. Has been cleaned and rewrapped this morning. ESRD on HD MWF -Patient received hemodialysis yesterday with 2 L fluid removal. -Nephrology is on consultation appreciate their recommendations and further input -We will continue to monitor her electrolytes closely and replete as necessary -Patient is to follow-up with nephrology within 7 days of hospital discharge and order as necessary for her Thursday hemodialysis Anemia likely due to chronic disease/ESRD -Per nephrology -Follow-up with nephrology outpatient within 7 days of hospital discharge CVA x2 /PVD -No focal neurological deficit -Continue on ASA & statin History of seizure disorder -Continue with Keppra History of gout -Continue with allopurinol GI px -PPI DVT Px Heparin subcu CODE STATUS: full DISCHARGE MEDICATIONS: Please see below. ALLERGIES: Please see below. PHYSICAL EXAMINATION ON DISCHARGE: VITAL SIGNS: Please see below. GENERAL: Patient a well-developed and well-nourished woman lying bed in NAD, she is alert and pleasant HEENT: NC/AT, MMM, Patient has a IJ on the left and perma cath on the right. Lines do not look infected - there is no erythema or pus around the sites CARDIOVASCULAR EXAMINATION: Normal S1, S2. no significant murmurs, gallops, rubs or clicks. No signs of peripheral edema RESPIRATORY EXAMINATION: Clear to auscultation bilaterally. No wheezing, rhonchi or rales appreciated. ABDOMINAL EXAMINATION: Soft, non-tender, non-distended, BS present and normoactive EXTREMITIES: No clubbing, rash, lesions. Right foot is dressed in bandages and there is no pus or blood seen through the bandages PSYCHIATRIC EXAMINATION: Appropriate mood and affect LABORATORY DATA: Please see below. IMAGING: CXR, portable, AP view - 06/29/21 IMPRESSION: 1. Cardiomegaly and pulmonary edema. 2. Bibasilar airspace opacities, which may represent atelectasis or consolidation (e.g.: aspiration or pneumonia). 3. Blunting of the left costophrenic sulcus, which may indicate a left pleural effusion. CXR, portable, AP view - 06/30/21 IMPRESSION: 1. New left IJ line extends past the SVC into the right brachiocephalic vein. 2. Perihilar and lower lobe opacities/consolidations (left greater than right) and possible left effusion. R Foot Xray, AP, lateral, bilateral oblique views 06/30/21 IMPRESSION: Underlying osteomyelitis cannot be excluded and are suspect. PROGNOSIS: Fair ACTIVITY: As DIET: Consistent carb diet DISCHARGE PLAN: Discharge to home DISPOSITION: - Discharge to home DISCHARGE INSTRUCTIONS: Please be compliant with home medications as well as new medications as directed Continue with Carvedilol 6.25mg PO qd Continue with Aspirin 81mg PO qd Continue with Plavix 75mg PO qd Continue with Imdur 30mg PO qd Do not continue to take nifedipine, metoprolol, omeprazole, lipitor and cepha lexin Follow up with PCP within 7 days of hospital discharge Follow up with Nephrology for hemodialysis within 3-5 days of hospital discharge Follow up with Cardiology within 7 days of hospital discharge Follow-up with Dr. Purdy (wound care) within 7 days of hospital discharge If your symptoms should return or worsen, please return to the closest emergency room DISCHARGE CONDITION: Stable TIME SPENT ON DISCHARGE: Greater than 45 minutes. Vital Signs/I&Os Vital Signs Date Time Temp Pulse Resp B/P (MAP) Pulse Ox O2 Delivery O2 Flow Rate FiO2 07/04/21 08:49 140/72 07/04/21 08:49 94 07/04/21 04:00 97.5 18 99 Nasal Cannula 1.0 07/01/21 08:00 65 I&O- Last 24 Hours up to 6 AM 07/04/21 06:00 Intake Total 590 ml Balance 590 ml Laboratory Data Labs 24H Laboratory Tests 2 07/03/21 11:54: Bedside Glucose (Misc Panel) 148H 07/03/21 11:56: Activated Partial Thromboplast Time 55.8H 07/03/21 17:13: Bedside Glucose (Misc Panel) 258H 07/04/21 00:08: Bedside Glucose (Misc Panel) 218H 07/04/21 05:32: Bedside Glucose (Misc Panel) 198H 07/04/21 07:39: Immature Granulocyte % (Auto) 2.4, Neutrophils (%) (Auto) 67.1H, Lymphocytes (%) (Auto) 21.3L, Monocytes (%) (Auto) 4.8, Eosinophils (%) (Auto) 3.6H, Basophils (%) (Auto) 0.8, Neutrophils # (Auto) 10.6H, Lymphocytes # (Auto) 3.4, Monocytes # (Auto) 0.8, Eosinophils # (Auto) 0.6H, Basophils # (Auto) 0.1, Nucleated Red Blood Cells % (auto) 0.0, Anion Gap 9, Glomerular Filtration Rate 21.5L, Calcium Level 8.9, Troponin I 1.27#H CBC/BMP Laboratory Tests 07/04/21 07:39 FSBS Laboratory Tests Test 07/03/21 11:54 07/03/21 17:13 07/04/21 00:08 07/04/21 05:32 Range/Units Bedside Glucose (Misc Panel) 148 258 218 198 80-115 MG/DL Microbiology Microbiology 07/01/21 Stool Occult Blood (TEMITOPE) - Final, Complete 06/30/21 Stool Occult Blood (TEMITOPE) - Final, Complete 06/29/21 Blood Culture - Preliminary, Resulted No Growth after 72 hours. All specime... 06/29/21 Respiratory Virus Panel (PCR) (TEMITOPE) - Final, Complete 06/29/21 Blood Culture - Preliminary, Resulted No Growth after 72 hours. All specime... Discharge Medications Scheduled Allopurinol (Allopurinol) 100 Mg Tablet, 100 MG PO DAILY, (Reported) Aspirin (Aspirin EC) 81 Mg Tablet.dr, 81 MG PO DAILY, (Reported) Atorvastatin Calcium (Atorvastatin Calcium) 20 Mg Tablet, 80 MG PO DAILY Calcitriol (Calcitriol) 0.25 Mcg Capsule, 0.25 MCG PO 2XW, (Reported) MON AND FRI Carvedilol (Carvedilol) 6.25 Mg Tablet, 6.25 MG PO BID Cholecalciferol (Vitamin D3) (Vitamin D3) 1,000 Unit Tablet, 1,000 UNITS PO DA SHANTELL, (Reported) Clopidogrel Bisulfate (Clopidogrel) 75 Mg Tablet, 75 MG PO DAILY Epoetin Roosevelt-Epbx (Retacrit) 10,000 Unit/1 Ml Vial, 10,000 UNIT INJ ASDIRECTED, (Reported) Furosemide (Furosemide) 40 Mg Tablet, 80 MG PO DAILY, (Reported) Gabapentin (Gabapentin) 300 Mg Capsule, 300 MG PO QHS, (Reported) Glipizide (Glipizide) 5 Mg Tablet, 5 MG PO BID, (Reported) Insulin Glargine,Hum.rec.anlog (Basaglar Kwikpen U-100) 100 Unit/1 Ml Insuln.pen, 20 UNIT SC BID, (Reported) Isosorbide Mononitrate (Isosorbide Mononitrate ER) 30 Mg Tab.er.24h, 30 MG PO DAILY Lactobacillus Acidophilus (Acidophilus) 1 Each Tablet, 1 TAB PO DAILY, (Reported) Levetiracetam (Keppra) 500 Mg Tablet, 500 MG PO BID, (Reported) Polyethylene Glycol 3350 (Miralax) 119 Gm Powder, 17 GM PO DAILY, (Reported) dilute in 8 ounces of water or juice Miscellaneous Medications [Med Rec Comment] , (Reported) RECIEVED COPY OF OFFICE VISIT WITH LIST FROM 06/27/21. NOT SURE HOW ACCURATE LIST IS. REVIEWED WITH EXTERNAL MED HISTORY Allergies Coded Allergies: No Known Allergies (Unverified , 06/29/21) Alma Larsen DO Jul 04, 2021 11:19
[2021-07-04] MEDS: cefTRIAXone SOD 1 GM in D5W MINI-BAG PLUS 50 ML IV SCH (13:32)
--- NOTE | 2021-07-04 22:54 | IPNPDOC ---
Subjective CC/HPI The patient is a 61-year-old female admitted with a reason for visit of Nstemi, Pneumonia, Sepsis. Events since last encounter Pt was seen during HD today. She is tolerating it well. Trop trending down to 1.2 today. General: Denies: Chills, Night Sweats Constitutional: Denies: Chills, Fever Eyes: Denies: Pain, Vision change ENT: Denies: Head Aches, Ear Pain Skin: Reports: Lesions; Denies: Rash Pulmonary: Denies: Dyspnea, Cough Cardiovascular: Denies: Chest Pain, Palpitations Gastrointestinal: Denies: Nausea, Vomiting Genitourinary: Denies: Dysuria, Frequency Hematologic: Denies: Bruising, Bleeding Excessively Musculoskeletal: Denies: Neck Pain, Back Pain Neurological: Denies: Weakness, Numbness Psych: Reports: Mood Normal Objective Physical Examination General Exam: Alert, No Acute Distress EYE EXAM: PERRLA, Conjunctiva & lids normal, EOMI ENT EXAM: Atraumatic, Mucous membr. moist/pink Neck Exam: Supple; No: JVD Chest Exam: Clear to auscultation; No: Rales Heart Exam: Rate Normal; No: Murmurs, Rubs ABDOMEN EXAM: Normal bowel sounds, Soft; No: Tenderness Female Exam: Nl Ext Genitalia Extremity Exam: Other (Rt foot dressing and Lt heel dressing.); No: Clubbing, Edema Neuro Exam: Normal Speech, Strength at 5/5 X4 ext Psych Exam: Mental status NL, Mood NL, Oriented x 3 Vital Signs/I&O Vital Signs Date Time Temp Pulse Resp B/P (MAP) Pulse Ox O2 Delivery O2 Flow Rate FiO2 07/04/21 08:49 140/72 07/04/21 08:49 94 07/04/21 08:00 96.5 18 95 Room Air 07/04/21 04:00 1.0 07/01/21 08:00 65 I&O- Last 24 Hours up to 6 AM 07/04/21 06:00 Intake Total 590 ml Balance 590 ml Laboratory Data Labs 24H Laboratory Tests 2 07/04/21 00:08: Bedside Glucose (Misc Panel) 218H 07/04/21 05:32: Bedside Glucose (Misc Panel) 198H 07/04/21 07:39: Immature Granulocyte % (Auto) 2.4, Neutrophils (%) (Auto) 67.1H, Lymphocytes (%) (Auto) 21.3L, Monocytes (%) (Auto) 4.8, Eosinophils (%) (Auto) 3.6H, Basophils (%) (Auto) 0.8, Neutrophils # (Auto) 10.6H, Lymphocytes # (Auto) 3.4, Monocytes # (Auto) 0.8, Eosinophils # (Auto) 0.6H, Basophils # (Auto) 0.1, Nucleated Red Blood Cells % (auto) 0.0, Anion Gap 9, Glomerular Filtration Rate 21.5L, Calcium Level 8.9, Troponin I 1.27#H 07/04/21 13:21: Bedside Glucose (Misc Panel) 151H CBC/BMP Laboratory Tests 07/04/21 07:39 FSBS Laboratory Tests Test 07/04/21 00:08 07/04/21 05:32 07/04/21 13:21 Range/Units Bedside Glucose (Misc Panel) 218 198 151 80-115 MG/DL Current Medications Current Medications Medications (Trade) Dose Ordered Sig/Mir Route PRN Reason Start Time Stop Time Status Last Admin Dose Admin Acetaminophen (Tylenol Tab) 650 mg Q4H PRN PO MILD PAIN or TEMP > 101 06/30/21 05:50 07/04/21 14:53 DC 07/02/21 16:24 Al Hydrox/Mg Hydrox/Simethicone (Mylanta) 30 ml DAILY PRN PO DYSPEPSIA 06/30/21 05:50 07/04/21 14:53 DC Albuterol/ Ipratropium (Duoneb (Ipr 0.5mg/Alb 2.5mg)) 3 ml Q20M PRN NEB SHORTNESS OF BREATH 06/29/21 21:35 06/29/21 21:56 DC 06/29/21 21:56 Allopurinol (Zyloprim) 100 mg DAILY PO 06/30/21 09:00 07/04/21 14:53 DC 07/04/21 08:49 Aspirin (Aspirin Chewable) 81 mg DAILY PO 06/30/21 09:00 07/04/21 14:53 DC 07/04/21 08:45 Atorvastatin Calcium (Lipitor) 80 mg DAILY PO 06/30/21 09:00 07/04/21 14:53 DC 07/04/21 08:45 Calcitriol (Rocaltrol) 0.25 mcg MoFr@0900 PO 07/01/21 09:00 07/04/21 14:53 DC 07/01/21 08:15 Carvedilol (COReg) 6.25 mg BID PO 07/02/21 09:00 07/04/21 14:53 DC 07/04/21 08:49 Ceftriaxone Sodium 1 gm/ Dextrose 50 ml @ 100 mls/hr Q24H IV 07/02/21 13:00 07/04/21 14:53 DC 07/04/21 13:32 Clopidogrel Bisulfate (PLAVix) 75 mg DAILY PO 06/30/21 09:00 07/04/21 14:53 DC 07/04/21 08:45 Darbepoetin Roosevelt (Aranesp (Dialysis Use)) 200 mcg HD IV 07/01/21 01:10 07/04/21 14:53 DC 07/02/21 14:39 Dextrose (Dextrose 50%) 25 ml ASDIRECTED PRN IV SEE LABEL COMMENTS 06/30/21 07:30 07/04/21 14:53 DC 07/01/21 01:30 Dextrose (Dextrose 50%) 25 ml ASDIRECTED PRN IV SEE LABEL COMMENTS 07/01/21 17:40 07/01/21 17:40 DC Furosemide (Lasix) 80 mg DAILY PO 06/30/21 09:00 Cancel Gabapentin (Neurontin) 300 mg QHS PO 06/30/21 21:00 07/04/21 14:53 DC 07/03/21 20:25 Glucagon (Glucagon) 1 mg ASDIRECTED PRN SC SEE LABEL COMMENTS 06/30/21 07:30 07/04/21 14:53 DC Glucagon (Glucagon) 1 mg ASDIRECTED PRN SC SEE LABEL COMMENTS 07/01/21 17:40 07/01/21 17:41 DC Glucose (Glucose) 16 GM ASDIRECTED PRN PO SEE LABEL COMMENTS 06/30/21 07:30 07/04/21 14:53 DC Glucose (Glucose) 16 GM ASDIRECTED PRN PO SEE LABEL COMMENTS 07/01/21 17:40 07/01/21 17:41 DC Heparin Sodium (Heparin) Please refer to ... ASDIRECTED XX 06/30/21 10:55 07/01/21 10:54 DC Heparin Sodium (Heparin) Please refer to ... ASDIRECTED XX 07/02/21 06:00 07/03/21 05:59 DC Heparin Sodium (Heparin) Please refer to ... ASDIRECTED XX 07/04/21 08:10 07/04/21 14:53 DC Heparin Sodium (Heparin) dose as per volume indica... ASDIRECTED PRN IV SEE LABEL COMMENTS 06/30/21 10:55 07/01/21 10:54 DC Heparin Sodium (Heparin) dose as per volume indica... ASDIRECTED PRN IV SEE LABEL COMMENTS 07/02/21 06:00 07/02/21 23:04 DC Heparin Sodium (Heparin) dose as per volume indica... ASDIRECTED PRN IV SEE LABEL COMMENTS 07/04/21 08:10 07/04/21 14:53 DC Heparin Sodium (Porcine) (Heparin) ASDIRECTED PRN IV SEE LABEL COMMENTS 06/30/21 05:50 07/03/21 10:13 DC 07/03/21 06:12 Heparin Sodium (Porcine) (Heparin) 5,000 units Q8H SQ 07/03/21 14:00 07/04/21 14:53 DC 07/04/21 13:32 Heparin Sodium (Porcine) 68865 units/IV Miscellaneous Supplies 250 ml @ 8.16 mls/hr DRIP IV 06/30/21 07:05 07/03/21 09:57 DC 07/03/21 05:03 Heparin Sodium (Porcine) 91279 units/IV Miscellaneous Supplies 250 ml @ 8.16 mls/hr Q24H IV 06/30/21 01:10 06/30/21 06:05 DC 06/30/21 01:41 Home Med (Home Med List Complete!) ASDIRECTED XX 06/30/21 07:35 06/30/21 07:37 DC Insulin Detemir (Levemir Insulin) 15 units BID SC 06/30/21 09:00 06/30/21 14:13 DC 06/30/21 12:11 Insulin Human Lispro (HumaLOG INSULIN) SEE PROTOCOL TABLE Q6H SC 07/01/21 18:00 07/04/21 14:53 DC 07/03/21 17:19 Insulin Human Lispro (HumaLOG INSULIN) See Protocol Table AC SC 06/30/21 07:30 06/30/21 14:13 DC Insulin Human Lispro (HumaLOG INSULIN) See Protocol Table QHS SC 06/30/21 21:00 06/30/21 14:13 DC Insulin Human Regular 100 unit/ IV Miscellaneous Supplies 100 ml @ 0 mls/hr Q0M IV 06/30/21 14:15 Cancel Insulin Human Regular 100 unit/ IV Miscellaneous Supplies 100 ml @ 0 mls/hr Q0M IV 06/30/21 14:40 07/01/21 01:58 DC 06/30/21 15:19 Isosorbide Mononitrate (Imdur) 30 mg DAILY PO 07/02/21 09:00 07/04/21 14:53 DC 07/04/21 08:49 Levetiracetam (Keppra) 500 mg BID PO 06/30/21 09:00 07/04/21 14:53 DC 07/04/21 08:45 Magnesium Hydroxide (Milk Of Magnesia) 30 ml DAILY PRN PO CONSTIPATION 06/30/21 05:50 07/04/21 14:53 DC Metoprolol Tartrate (Lopressor) 75 mg BID PO 06/30/21 09:00 Cancel Nifedipine (Procardia Xl) 90 mg QAM PO 06/30/21 09:00 Cancel Nitroglycerin (Nitrostat (1/ 150)) 0.4 mg Q5MP PRN SL ANGINA 06/30/21 05:50 07/04/21 14:53 DC Non-Formulary Medication ( See Comment Field Below ) [facility]. DOSING ASDIRECTED XX 06/30/21 09:00 07/01/21 14:13 DC Non-Formulary Medication (Heparin Iv Rate Change Documentation ml/ Hr) ASDIRECTED XX 06/30/21 05:50 07/03/21 10:13 DC 07/03/21 06:14 Non-Formulary Medication (Insulin Iv Rate Change Documentation ml/ Hr) ASDIRECTED XX 06/30/21 14:15 07/30/21 14:14 Cancel Non-Formulary Medication (Insulin Iv Rate Change Documentation ml/ Hr) ASDIRECTED XX 06/30/21 14:40 07/01/21 01:58 DC 06/30/21 21:54 Norepinephrine Bitartrate 8 mg/ Dextrose 508 ml @ 15.24 mls/ hr Q24H IV 06/30/21 12:10 06/30/21 12:19 DC Norepinephrine Bitartrate 8 mg/ Dextrose 508 ml @ 15.24 mls/ hr Q24H IV 06/30/21 12:19 06/30/21 12:20 DC Norepinephrine Bitartrate 8 mg/ Dextrose 508 ml @ 15.24 mls/ hr Q24H IV 06/30/21 12:25 07/01/21 07:59 DC Piperacillin Sod/ Tazobactam Sod 2.25 gm/Dextrose 50 ml @ 50 mls/hr Q6H IV 06/30/21 08:00 07/02/21 11:09 DC 07/02/21 08:07 Simvastatin (Zocor) 20 mg QPM PO 06/30/21 21:00 06/30/21 07:56 DC Vancomycin HCl 500 mg/Dextrose 110 ml @ 110 mls/hr Q12H IV 06/30/21 07:35 06/30/21 08:53 DC Vitamin D (Vitamin D) 1,000 units DAILY PO 06/30/21 09:00 07/04/21 14:53 DC 07/04/21 08:49 Allergies Coded Allergies: No Known Allergies (Unverified , 06/29/21) Assessment/Plan Date Seen The patient was seen on 07/04/21 in AM during HD. Plan / VTE VTE Prophylaxis Ordered?: Yes Plan Orders past 48 Hours Orders Fingerstick Blood Sugar (07/02/21 23:27) Fingerstick Blood Sugar (07/03/21 05:12) Partial Thromboplastin Time (07/03/21 12:00) Activity As Tolerated (07/03/21 09:54) Heparin (Heparin) (07/03/21 14:00) Chlamydia Pneumoniae Trina (07/03/21 12:00) Fingerstick Blood Sugar (07/03/21 11:54) Fingerstick Blood Sugar (07/03/21 17:13) Fingerstick Blood Sugar (07/04/21 00:08) Attending Doctor Change: (07/04/21 03:54) Attending Doctor Change: (07/04/21 04:07) Fingerstick Blood Sugar (07/04/21 05:32) Cbc With Differential (07/04/21 07:10) Basic Metabolic Profile (07/04/21 07:10) Troponin (07/04/21 07:11) Hemodialysis Acute Orders (07/04/21 08:07) Heparin (Heparin) (07/04/21 08:10) Heparin (Heparin) (07/04/21 08:10) Oxygen Therapy Orders (07/04/21 08:07) Discharge/Transfer Order (07/04/21 10:33) Patient Discharge Instruction (07/04/21 13:12) * Nursing Order * (07/04/21 13:27) Fingerstick Blood Sugar (07/04/21 13:21) Plan Text 1.ESRD on HD: MWF schedule but inpatient she is TTS. HD being done today. 2. Decompensated CHF: Improved volume status. Set EDW at outpatient. 3.HCAP: Empiric abx coverage. 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 Follow up with wound care as outpatient. 5.Anemia in ESRd: Dede as per protocol. 6.NSTEMI: Trop trending down with improving volume. ARTURO ENAMORADO MD Jul 04, 2021 22:54
[2021-07-05 13:11] LABS: CHLAMYDIA PNEUMONIAE IgG <1:16 (Neg:<1:16); CHLAMYDIA PNEUMONIAE IgM <1:10 (Neg:<1:10)
== END 2021-07-04 14:51 | disposition home or self-care (01) | DRG 720 ==
LOC: EDBD 21:31 → M ED 21:31 → M ED INP 06-30 05:49 → ENRESERV 06-30 06:31 → M PCU 06-30 08:22
PROVIDERS: ADMIT Internal Medicine; ATTEND Internal Medicine
PROC: 05HN33Z Insertion of Infusion Device into Left Internal Jugular Vein, Percutaneous Approach (ICD-10-PCS; principal; 2021-06-30)
PROC: 5A1D70Z Performance of Urinary Filtration, Intermittent, Less than 6 Hours Per Day (ICD-10-PCS; 2021-06-30)
DX: A41.9 Sepsis, unspecified organism (principal); I21.4 Non-ST elevation (NSTEMI) myocardial infarction; J96.01 Acute respiratory failure with hypoxia; I50.33 Acute on chronic diastolic (congestive) heart failure; R57.0 Cardiogenic shock; R65.21 Severe sepsis with septic shock; J18.9 Pneumonia, unspecified organism; N13.2 Hydronephrosis with renal and ureteral calculous obstruction; N18.6 End stage renal disease; E11.51 Type 2 diabetes mellitus with diabetic peripheral angiopathy without gangrene; E11.65 Type 2 diabetes mellitus with hyperglycemia; M10.9 Gout, unspecified; Z86.73 Personal history of transient ischemic attack (TIA), and cerebral infarction without residual deficits; D50.9 Iron deficiency anemia, unspecified; G40.909 Epilepsy, unspecified, not intractable, without status epilepticus; Z79.899 Other long term (current) drug therapy; Z79.82 Long term (current) use of aspirin; Z79.4 Long term (current) use of insulin; Z89.421 Acquired absence of other right toe(s)

== ENCOUNTER → 2021-09-19 | Outpatient (REF) | payer OTHER ==
[~2021-09-19] MED LIST: ACID1TAB PO; AGGR1CAP; ALLO100T; ALLO100T PO; ASPI-1 PO; ASPI1CHW2; ASPI81TA26 PO; ATIV2TAB PO; ATOR1TAB21 PO; ATOR40TA75 PO; AURY1TAB PO; BASA100I SC; BASA100I SQ; CALC1CAP31 PO; CALC500T60 PO; CARV6.25 PO; CEPH500C PO; CHLO25TA PO; CLEO300C2 PO; CLOP75TA2; CLOP75TA2 PO; D-101000; D-101000 PO; D31000TA2 PO; EQL50TAB2 PO; FENO1CAP16 PO; FERR325T18 PO; FURO20TA2; FURO20TA2 PO; FURO40TA2 PO; GABA-282 PO; GEMF600T5 PO; GLIP5TAB20 PO; GLIP5TAB8; GLIP5TAB8 PO; GLYB5TAB6 PO; HYDR50TAB PO; ISOS1TAB35 PO; KEPP1TAB PO; LANTINJ4 SC; LEVETIRACETAM; LOPI600T PO; LORA2TAB14 PO; LOSA25TA14 PO; MACR100C43 PO; MAPA325T8 PO; MED REC COMMENT; MELA5CAP2 PO; METO50TA7 PO; METO75TA PO; MIRA3350 PO; MUPI2OI; NIFE1TAB50 PO; NIFE30TA50 PO; NIFE60TA40; OMEP-218 PO; OMEP1CAP73 PO; OSEN25TA PO; PLAV1TAB2 PO; PROC1INJ5 IJ; PROC20004 IJ; RETA1000 INJ; ROCA0.25 PO; SIMV20TA22 PO; SM A10CA PO; SODI325T9; TIZA2TA PO; VITA100054 PO; VITA100067 PO; VITATAB11 PO; [UNRECOGNIZED DRUG - OTHER] SQ
== END ==
LOC: M SFHCPLAZ 16:54
PROVIDERS: ATTEND Student in an Organized Health Care Education/Training Program
DX: R05.9 Cough, unspecified (principal)

== ENCOUNTER → 2021-11-05 | Outpatient (REF) | payer OTHER ==
[~2021-11-05] MED LIST changes: +LOSA25TA13 PO; -LOSA25TA14 PO; +OMEP-173 PO; -OMEP-218 PO
[2021-11-05 12:57] LABS: HEMOGLOBIN A1c 9.1 %
== END ==
LOC: M SFHCWOUN 11:58
PROVIDERS: ATTEND Surgery
DX: L89.613 Pressure ulcer of right heel, stage 3 (principal)

== ENCOUNTER → 2021-11-21 | Outpatient (REF) | payer OTHER ==
[~2021-11-21] MED LIST changes: -D31000TA2 PO; +VITA100093 PO
== END ==
LOC: M SFHCPLAZ 16:45
PROVIDERS: ATTEND Student in an Organized Health Care Education/Training Program
DX: R30.0 Dysuria (principal)

== ENCOUNTER → 2022-07-29 | Outpatient (CLI) | payer OTHER ==
[~2022-07-29] MED LIST changes: +CLOP75TA99 PO; -PLAV1TAB2 PO
[2022-07-29 11:40] LABS: BASO # 0.1 10^3/uL (0.0-0.2); BASO % 0.9 % (0.0-1.0); EOS # 0.4 10^3/uL (0.0-0.5); EOS % 3.5 % (0.0-3.0); HEMOGLOBIN 11.5 g/dl (12.0-15.5); LYMPH % 28.7 % (24.0-44.0); MEAN CORPUSCULAR HEMOGLOBIN 23.6 pg (27.0-33.0); MEAN CORPUSCULAR HGB CONC 30.3 g/dl (32.0-36.5); MEAN CORPUSCULAR VOLUME 77.9 fl (80.0-96.0); MONO # 0.6 10^3/uL (0.0-0.8); MONO % 5.9 % (2.0-8.0); NEUTROPHILS # 6.3 10^3/uL (1.5-8.5); NEUTROPHILS % 60.2 % (36.0-66.0); PLATELET COUNT, AUTOMATED 371 10^3/uL (150-450); RED BLOOD COUNT 4.88 10^6/uL (4.00-5.40); WHITE BLOOD COUNT 10.5 10^3/uL (4.0-10.0)
[2022-07-29 15:33] LABS: ALBUMIN 3.1 GM/DL (3.2-5.2); BILIRUBIN,TOTAL 0.3 MG/DL (0.2-1.0); CALCIUM LEVEL 9.9 MG/DL (8.8-10.2); CHOLESTEROL RISK RATIO 4.176 (<5); CREATININE FOR GFR 3.75 MG/DL (0.55-1.30); FREE T4 1.11 NG/DL (0.76-1.46); POTASSIUM SERUM 3.9 MEQ/L (3.5-5.1); THYROID STIMULATING HORMONE 1.44 uIU/ML (0.358-3.740); TOTAL PROTEIN 7.6 GM/DL (6.4-8.2)
== END ==
LOC: M PLALAB 07:50
PROVIDERS: ATTEND Student in an Organized Health Care Education/Training Program
DX: N18.6 End stage renal disease (principal); E78.1 Pure hyperglyceridemia; E11.21 Type 2 diabetes mellitus with diabetic nephropathy

== ENCOUNTER → 2022-12-17 | Outpatient (REF) | payer OTHER | LOC: M SFHCPLAZ 10:57 | PROVIDERS: ATTEND Family Medicine | DX: Z53.9 Procedure and treatment not carried out, unspecified reason (principal) ==

== ENCOUNTER → 2023-02-26 | Outpatient (CLI) | payer MEDICAID, OTHER | LOC: M WHC 09:56 | PROVIDERS: ATTEND Student in an Organized Health Care Education/Training Program | DX: Z12.31 Encounter for screening mammogram for malignant neoplasm of breast (principal) ==

== ENCOUNTER → 2023-03-19 | Outpatient (CLI) | payer OTHER ==
[~2023-03-19] MED LIST changes: +NIFE-3 PO; -NIFE30TA50 PO; -NIFE60TA40; +NIFE60TA96
[2023-03-19 11:48] LABS: ALBUMIN 2.9 G/DL (3.2-5.2); ALKALINE PHOSPHATASE 137 U/L (46-116); ALT/SGPT 12 U/L (7.0-40); AST/SGOT < 8 U/L (<34); BILIRUBIN,TOTAL 0.2 MG/DL (0.3-1.2); BLOOD UREA NITROGEN 25 MG/DL (9-23); CARBON DIOXIDE LEVEL 27 MMOL/L (20-31); CHLORIDE LEVEL 100 MMOL/L (98-107); CHOLESTEROL LEVEL 163 MG/DL (<200); CHOLESTEROL RISK RATIO 5.62 (<5); CREATININE FOR GFR 3.08 MG/DL (0.55-1.30); FERRITIN 1305.1 NG/ML (7.3-270.7); GLOMERULAR FILTRATION RATE 16.2 (>45); GLUCOSE, FASTING 179 MG/DL (74-106); IRON (FE) 56 UG/DL (50-170); LDL CHOLESTEROL 56.6 MG/DL (<100); PERCENT SATURATION 29.2 % (13.2-45.0); POTASSIUM SERUM 4.3 MMOL/L (3.5-5.1); SODIUM LEVEL 135 MMOL/L (136-145); TOTAL IRON BINDING CAPACITY 192 UG/DL (250-425); TOTAL PROTEIN 6.6 G/DL (5.7-8.2); TRIGLYCERIDES LEVEL 387 MG/DL (<150)
[2023-03-19 11:49] LABS: FOLATE 12.9 NG/ML (>5.4); VITAMIN B12 LEVEL 493 PG/ML (211-911)
[2023-03-19 11:50] LABS: OSMOLALITY SERUM 292 MOSM/KG (280-301)
== END ==
LOC: M PLALAB 08:59
PROVIDERS: ATTEND Student in an Organized Health Care Education/Training Program
DX: E11.21 Type 2 diabetes mellitus with diabetic nephropathy (principal); D50.9 Iron deficiency anemia, unspecified; E87.1 Hypo-osmolality and hyponatremia; E78.1 Pure hyperglyceridemia

== ENCOUNTER 2023-12-22 16:21 | Inpatient (IN) | payer MEDICAID, OTHER, SELFPAY ==
[~2023-12-22] VITALS: Ht 167.6 cm; Wt 65.8 kg
[~2023-12-22 16:21] MED LIST changes: +GLIP5TAB17; +GLIP5TAB17 PO; -GLIP5TAB8; -GLIP5TAB8 PO
[2023-12-22 17:46] LABS: BASO # 0.1 10^3/uL (0.0-0.2); BASO % 0.4 % (0.0-1.0); EOS # 0.3 10^3/uL (0.0-0.5); EOS % 1.4 % (0.0-3.0); HEMATOCRIT 33.2 % (36.0-47.0); HEMOGLOBIN 10.1 g/dl (12.0-15.5); LYMPH # 2.5 10^3/uL (1.5-5.0); LYMPH % 11.8 % (24.0-44.0); MEAN CORPUSCULAR HEMOGLOBIN 23.8 pg (27.0-33.0); MEAN CORPUSCULAR HGB CONC 30.4 g/dl (32.0-36.5); MEAN CORPUSCULAR VOLUME 78.3 fl (80.0-96.0); MONO # 1.3 10^3/uL (0.0-0.8); NEUTROPHILS # 16.7 10^3/uL (1.5-8.5); NEUTROPHILS % 79.8 % (36.0-66.0); PLATELET COUNT, AUTOMATED 345 10^3/uL (150-450); RED BLOOD COUNT 4.24 10^6/uL (4.00-5.40)
[2023-12-22] MEDS: CEFEPIME HCL 1 GM in D5W MINI-BAG PLUS 50 ML IV ONE (20:41)
[2023-12-22 20:51] LABS: ALBUMIN 2.8 G/DL (3.2-5.2); ALKALINE PHOSPHATASE 122 U/L (46-116); ALT/SGPT 14 U/L (7.0-40); AST/SGOT 16 U/L (<34); BILIRUBIN,DIRECT < 0.1 MG/DL (<0.4); BILIRUBIN,TOTAL 0.3 MG/DL (0.3-1.2); BLOOD UREA NITROGEN 40 MG/DL (9-23); CALCIUM LEVEL 9.4 MG/DL (8.3-10.6); CARBON DIOXIDE LEVEL 26 MMOL/L (20-31); CHLORIDE LEVEL 98 MMOL/L (98-107); CREATININE FOR GFR 4.24 MG/DL (0.55-1.30); GLOMERULAR FILTRATION RATE 11.2 (>45); GLUCOSE, FASTING 191 MG/DL (74-106); MAGNESIUM LEVEL 1.9 MG/DL (1.8-2.4); POTASSIUM SERUM 4.8 MMOL/L (3.5-5.1); SODIUM LEVEL 137 MMOL/L (136-145); TOTAL PROTEIN 7.5 G/DL (5.7-8.2)
[2023-12-22 20:58] LABS: PROCALCITONIN 0.91 ng/ml
[2023-12-22] MEDS: VANCOMYCIN HCL 1,000 MG, VIAL MATE ADAPTER 1 EACH in D5W 250 ML IV ONE (21:49)
[2023-12-22] MEDS ORDERED: CLOP75TA2 PO (22:57)
[2023-12-22] MEDS ORDERED: CARV12.5 PO (22:57)
[2023-12-22] MEDS ORDERED: ISOS1TAB35 PO (22:57)
[2023-12-22] MEDS ORDERED: GLIP10TA6 PO ×2 (22:57)
[2023-12-22] MEDS ORDERED: TRUL0.5I SC (22:57)
[2023-12-22] MEDS ORDERED: SODI88SP NARES (22:57)
[2023-12-22] MEDS ORDERED: ATOR80TA59 PO (22:57)
[2023-12-22] MEDS ORDERED: FLON1SPR NARES (22:57)
[2023-12-22] MEDS ORDERED: RISATAB3 PO (22:57)
[2023-12-22] MEDS ORDERED: AMLO2.5T3 PO (22:57)
[2023-12-22] MEDS ORDERED: CETI-24 PO (22:57)
[2023-12-22] MEDS ORDERED: HOME MED LIST COMPLETE! XX SCH (23:05)
[2023-12-22] MEDS ORDERED: GLUCAGON INJ 1MG VIAL SC PRN (23:10)
[2023-12-22] MEDS ORDERED: GLUCOSE 4GM CHEW TABLET PO PRN (23:10)
[2023-12-22] MEDS ORDERED: hydrALAZINE 20MG/ML 1ML VIAL IV PRN (23:20)
[2023-12-22] MEDS: INSULIN LISPRO (NovoLOG) PER UNIT SC SCH (23:25)
[2023-12-22] MEDS: LEVEMIR (INSULIN DETEMIR) 1 UNITS/0.01ML SC SCH (23:26)
[2023-12-23] MEDS: CARVedilol 12.5 MG TAB PO SCH (00:11)
[2023-12-23] MEDS: GABAPENTIN 300 MG CAP PO SCH (00:12)
[2023-12-23] MEDS: PIPERACILLIN/TAZOBACTAM SOD 2.25 GM in D5W MINI-BAG PLUS 50 ML IV ONE (02:03)
[2023-12-23 06:25] LABS: BASO # 0.1 10^3/uL (0.0-0.2); BASO % 0.5 % (0.0-1.0); EOS # 0.3 10^3/uL (0.0-0.5); EOS % 1.5 % (0.0-3.0); HEMATOCRIT 28.5 % (36.0-47.0); HEMOGLOBIN 8.9 g/dl (12.0-15.5); LYMPH # 2.6 10^3/uL (1.5-5.0); LYMPH % 13.7 % (24.0-44.0); MEAN CORPUSCULAR HEMOGLOBIN 24.3 pg (27.0-33.0); MEAN CORPUSCULAR HGB CONC 31.2 g/dl (32.0-36.5); MEAN CORPUSCULAR VOLUME 77.7 fl (80.0-96.0); MONO # 1.2 10^3/uL (0.0-0.8); MONO % 6.4 % (2.0-8.0); NEUTROPHILS # 14.3 10^3/uL (1.5-8.5); NEUTROPHILS % 77.4 % (36.0-66.0); PLATELET COUNT, AUTOMATED 326 10^3/uL (150-450); RED BLOOD COUNT 3.67 10^6/uL (4.00-5.40); WHITE BLOOD COUNT 18.6 10^3/uL (4.0-10.0)
[2023-12-23 07:08] LABS: CALCIUM LEVEL 9.3 MG/DL (8.3-10.6); CREATININE FOR GFR 4.93 MG/DL (0.55-1.30); GLOMERULAR FILTRATION RATE 9.4 (>45); POTASSIUM SERUM 4.6 MMOL/L (3.5-5.1)
[2023-12-23] MEDS ORDERED: LIDOCAINE 1% SDV 5ML VIAL SC PRN (08:15)
[2023-12-23] MEDS ORDERED: SODIUM CHLORIDE 0.9% 1000ML IV PRN (08:15)
[2023-12-23] MEDS ORDERED: HEPARIN 1,000UNITS/ML 10ML VIAL (FOR RADIOLOGY & DIALYSIS ONLY) IV PRN (08:15)
[2023-12-23] MEDS ORDERED: HEPARIN 1,000UNITS/ML 10ML VIAL (FOR RADIOLOGY & DIALYSIS ONLY) XX SCH (08:15)
[2023-12-23] MEDS: FUROSEMIDE 40 MG TAB PO SCH (08:19)
[2023-12-23] MEDS: LACTOBACILLUS ACIDOPHILUS CAP (BACID) PO SCH (08:19)
[2023-12-23] MEDS: OMEPRAZOLE 20MG CAP PO SCH (08:19)
[2023-12-23] MEDS: allopurinoL 100 MG TAB PO SCH (08:20)
[2023-12-23] MEDS: ATORVASTATIN 20 MG TAB PO SCH (08:20)
[2023-12-23] MEDS: ASPIRIN 81MG CHEW TABLET PO SCH (08:20)
[2023-12-23] MEDS: INSULIN LISPRO (NovoLOG) PER UNIT SC SCH (08:20)
[2023-12-23] MEDS: CLOPIDOGREL 75 MG TAB PO SCH (08:20)
[2023-12-23] MEDS: ISOSORBIDE MON. (IMDUR) 30MG XR TAB PO SCH (08:21)
[2023-12-23] MEDS: HEPARIN SOD (PORCINE) 5000UNITS/ML 1ML VIAL/SYRINGE SC SCH (08:21)
[2023-12-23] MEDS ORDERED: FLUTICASONE PROP 0.05% NASAL SPRAY 16 GM (FLONASE) NARES PRN (08:30)
[2023-12-23] MEDS ORDERED: CETIRIZINE (ZyrTEC) 10 MG TAB PO PRN (08:30)
[2023-12-23] MEDS: ACETAMINOPHEN TAB 650MG DOSE (2X325MG) PO PRN (09:34)
[2023-12-23] MEDS ORDERED: PIPERACILLIN/TAZOBACTAM SOD 2.25 GM in D5W MINI-BAG PLUS 50 ML IV SCH (10:00)
[2023-12-23] MEDS: SUCROFERRIC OXYHYDROXIDE 500MG CHEW TAB (VELPHORO) PO SCH (12:30)
[2023-12-23 14:15] VITALS: BP 103/62; TEMP 97.5; O2SAT 98
[2023-12-23] MEDS: PIPERACILLIN/TAZOBACTAM SOD 2.25 GM in D5W MINI-BAG PLUS 50 ML IV SCH (15:15)
[2023-12-23 20:40] VITALS: BP 139/61; TEMP 97.9; O2SAT 95
[2023-12-24 05:26] VITALS: BP 132/43; TEMP 97.9; O2SAT 96
[2023-12-24 07:00] LABS: BASO # 0.1 10^3/uL (0.0-0.2); BASO % 0.7 % (0.0-1.0); EOS # 0.5 10^3/uL (0.0-0.5); EOS % 3.7 % (0.0-3.0); HEMOGLOBIN 8.6 g/dl (12.0-15.5); LYMPH # 3.8 10^3/uL (1.5-5.0); LYMPH % 26.4 % (24.0-44.0); MEAN CORPUSCULAR HGB CONC 30.7 g/dl (32.0-36.5); MONO % 7.1 % (2.0-8.0); NEUTROPHILS # 8.9 10^3/uL (1.5-8.5); NEUTROPHILS % 61.5 % (36.0-66.0); PLATELET COUNT, AUTOMATED 326 10^3/uL (150-450); RED BLOOD COUNT 3.59 10^6/uL (4.00-5.40); WHITE BLOOD COUNT 14.5 10^3/uL (4.0-10.0)
[2023-12-24 07:30] LABS: CALCIUM LEVEL 9.2 MG/DL (8.3-10.6); CREATININE FOR GFR 3.27 MG/DL (0.55-1.30); GLOMERULAR FILTRATION RATE 15.1 (>45); MAGNESIUM LEVEL 1.9 MG/DL (1.8-2.4); POTASSIUM SERUM 3.6 MMOL/L (3.5-5.1)
[2023-12-24] MEDS: DEXTROSE 50% 50ML SYRINGE IV PRN (07:55)
[2023-12-24] MEDS ORDERED: AUGMENTIN BID 400MG/5ML SUSP 50ML BTL PO SCH (10:35)
[2023-12-24 11:50] VITALS: BP 95/44
[2023-12-24 11:56] VITALS: BP 101/50
[2023-12-24 14:00] VITALS: BP 124/54; TEMP 97.7; O2SAT 99
[2023-12-24] MEDS: AUGMENTIN SUSP POWDER 250MG/5ML BTL 75ML PO SCH (14:38)
[2023-12-24 19:47] VITALS: BP 139/56; TEMP 98.2; O2SAT 99
[2023-12-25 05:17] VITALS: BP 120/49; TEMP 98.1; O2SAT 97
[2023-12-25] MEDS ORDERED: HEPARIN 1,000UNITS/ML 10ML VIAL (FOR RADIOLOGY & DIALYSIS ONLY) IV PRN (06:00)
[2023-12-25] MEDS ORDERED: HEPARIN 1,000UNITS/ML 10ML VIAL (FOR RADIOLOGY & DIALYSIS ONLY) XX SCH (06:00)
[2023-12-25] MEDS ORDERED: SODIUM CHLORIDE 0.9% 1000ML IV PRN (06:00)
[2023-12-25 06:26] VITALS: BP 120/49
[2023-12-25 06:51] LABS: BASO # 0.1 10^3/uL (0.0-0.2); BASO % 0.4 % (0.0-1.0); EOS # 0.6 10^3/uL (0.0-0.5); EOS % 4.4 % (0.0-3.0); HEMOGLOBIN 7.9 g/dl (12.0-15.5); LYMPH # 3.1 10^3/uL (1.5-5.0); LYMPH % 22.7 % (24.0-44.0); MEAN CORPUSCULAR HGB CONC 30.4 g/dl (32.0-36.5); MONO # 0.9 10^3/uL (0.0-0.8); MONO % 6.8 % (2.0-8.0); NEUTROPHILS % 64.9 % (36.0-66.0); PLATELET COUNT, AUTOMATED 315 10^3/uL (150-450); RED BLOOD COUNT 3.29 10^6/uL (4.00-5.40); WHITE BLOOD COUNT 13.8 10^3/uL (4.0-10.0)
[2023-12-25 07:13] LABS: C REACTIVE PROTEIN QUANTITATIV 10.7 MG/DL (<1.0)
[2023-12-25 07:17] LABS: CALCIUM LEVEL 8.3 MG/DL (8.3-10.6); CREATININE FOR GFR 4.57 MG/DL (0.55-1.30); GLOMERULAR FILTRATION RATE 10.3 (>45); MAGNESIUM LEVEL 1.8 MG/DL (1.8-2.4); POTASSIUM SERUM 3.8 MMOL/L (3.5-5.1)
[2023-12-25] MEDS ORDERED: CARV6.25 PO (10:06)
[2023-12-25] MEDS ORDERED: AMOX1SUS9 PO (10:06)
[2023-12-25 13:42] VITALS: BP 142/54; TEMP 97.3; O2SAT 100
[2023-12-25] MEDS ORDERED: CARVedilol 6.25 MG TAB PO SCH (21:00)
== END 2023-12-25 15:32 | disposition home or self-care (01) | DRG 115 ==
LOC: M ED 16:21 → EDBD 16:21 → M ED INP 12-23 02:55 → M MSPAV 12-23 14:20
PROVIDERS: ADMIT Preventive Medicine Undersea and Hyperbaric Medicine; ATTEND Internal Medicine
PROC: 5A1D70Z Performance of Urinary Filtration, Intermittent, Less than 6 Hours Per Day (ICD-10-PCS; principal; 2023-12-25)
DX: K11.20 Sialoadenitis, unspecified (principal); I13.2 Hypertensive heart and chronic kidney disease with heart failure and with stage 5 chronic kidney disease, or end stage renal disease; E11.22 Type 2 diabetes mellitus with diabetic chronic kidney disease; N18.6 End stage renal disease; I50.22 Chronic systolic (congestive) heart failure; E11.51 Type 2 diabetes mellitus with diabetic peripheral angiopathy without gangrene; E11.649 Type 2 diabetes mellitus with hypoglycemia without coma; R13.10 Dysphagia, unspecified; I25.10 Atherosclerotic heart disease of native coronary artery without angina pectoris; K21.9 Gastro-esophageal reflux disease without esophagitis; L03.211 Cellulitis of face; M10.9 Gout, unspecified; Z79.4 Long term (current) use of insulin; I25.2 Old myocardial infarction; E07.9 Disorder of thyroid, unspecified; Z99.2 Dependence on renal dialysis; Z79.899 Other long term (current) drug therapy; Z98.41 Cataract extraction status, right eye; H25.9 Unspecified age-related cataract; Z79.82 Long term (current) use of aspirin; I69.364 Other paralytic syndrome following cerebral infarction affecting left non-dominant side